=== PATIENT | female | born 1955 | race Caucasian/White ===

== ENCOUNTER 2018-04-15 23:33 | Emergency (ER) | payer BC ==
[2018-04-16] MEDS ORDERED: DIPH,PERTUS(ACELL)TETVAC-LF 0.5 ML VIAL IM ONE (00:11)
--- NOTE | 2018-04-16 00:48 | CT ---
EXAMINATION TYPE: CT brain wo con DATE OF EXAM: 04/16/2018 COMPARISON: None HISTORY: fall;evaluate for trauma headache CT DLP: 1044.4 mGycm Automated exposure control for dose reduction was used. FINDINGS: Ventricles have normal size. There is no mass effect nor midline shift. There is no sign of intracran ial hemorrhage. There is mild patchy white matter hypodensity. The calvarium is intact. There is mild mucosal thickening in the ethmoid air cells. IMPRESSION: MINIMAL CHRONIC SMALL VESSEL ISCHEMIA OR DEMYELINATING DISEASE. MILD ATROPHY. NO ACUTE INTRACRANIAL A BNORMALITY.
--- NOTE | 2018-04-16 01:01 | ED ---
Wound/Laceration HPI - General Chief Complaint: Wound/Laceration Stated Complaint: fall,head lac Time Seen by Provider: 04/16/18 00:01 Source: patient Mode of arrival: ambulatory Limitations: no limitations - History of Present Illness Initial Comments: 62-year-old female patient presents to the emergency department today for evaluation of laceration to the left posterior scalp. Patient states approximately 2 hours ago she was out on the deck smoking when she slipped and fell backwards striking her head on the deck. She denies any loss of consciousness with the injury. She denies any neck or back pain. She denies any other injuries. Patient states that she was having difficulty getting the bleeding to stop after repeatedly applying pressure for the last 2 hours or she presented here for further evaluation. She denies any use of anticoagulant or antiplatelet medications. She denies any current headache, dizziness, weakness , blurred vision, double vision, nausea, or vomiting. States that she did have 5 beers earlier in the day with last drink being at 4 PM. Patient denies any chest pain, shortness of breath, abdominal pain, or difficulties with bowel movements or urination. - Related Data Home Medications Medication Instructions Recorded Confirmed Ibuprofen 200 mg PO DAILY PRN 04/15/18 04/15/18 Rosuvastatin Calcium [Crestor] 2.5 mg PO DAILY 04/15/18 04/15/18 Allergies Allergy/AdvReac Type Severity Reaction Status Date / Time No Known Allergies Allergy Verified 04/15/18 23:46 Review of Systems ROS Statement: Those systems with pertinent positive or pertinent negative responses have been documented in the HPI. ROS Other: All systems not noted in ROS Statement are negative. Past Medical History Past Medical History: Hyperlipidemia History of Any Multi-Drug Resistant Organisms: None Reported Additional Past Surgical History / Comment(s): mastectomy Past Psychological History: No Psychological Hx Reported Smoking Status: Current every day smoker Past Alcohol Use History: Occasional Past Drug Use History: None Reported General Exam Limitations: no limitations General appearance: alert, in no apparent distress, other (This is a well- developed, well-nourished adult female patient in no acute distress. Vital signs upon presentation are temperature 97.9F, pulse 78, respirations 18, blood pressure 143/78, pulse ox 97% on room air.) Head exam: Present: other (There is a 3 cm laceration to the left occipital scalp, mild surrounding swelling. No bony step-off or deformity noted to palpation around the site. There is bleeding noted at the left lateral aspect.) Eye exam: Present: normal appearance, PERRL, EOMI. Absent: scleral icterus, conjunctival injection, nystagmus, periorbital swelling ENT exam: Present: normal exam, normal oropharynx, mucous membranes moist, TM's normal bilaterally Neck exam: Present: normal inspection, full ROM, other (Nontender, no step-off, no deformity to firm midline palpation of the posterior cervical spine. Full range of motion without pain or limitation.). Absent: tenderness, meningismus, lymphadenopathy Respiratory exam: Present: normal lung sounds bilaterally. Absent: respiratory distress, wheezes, rales, rhonchi, stridor Cardiovascular Exam: Present: regular rate, normal rhythm, normal heart sounds. Absent: systolic murmur, diastolic murmur, rubs, gallop, clicks Back exam: Present: normal inspection, other (Nontender, no step-off, no deformity to firm midline palpation of the thoracic and lumbar vertebrae. Full range of motion without pain or limitation.). Absent: vertebral tenderness Neurological exam: Present: alert, oriented X3, CN II-XII intact Psychiatric exam: Present: normal affect, normal mood Skin exam: Present: warm, dry, intact, normal color. Absent: rash Course Vital Signs 04/15/18 04/16/18 23:40 01:13 Temperature 97.9 F 97.3 F L Pulse Rate 78 88 Respiratory 18 16 Rate Blood Pressure 143/78 138/76 O2 Sat by Pulse 97 97 Oximetry Medical Decision Making - Medical Decision Making 62-year-old female patient presented to the emergency department today for evaluation of laceration to the left occipital scalp. Physical examination did reveal a 3 cm laceration with bleeding at the left lateral aspect to the left occipital scalp. The right lateral aspect of the laceration is superficial and exhibited no bleeding at this time. Patient is neurologically intact with no focal deficits. Computed tomography scan of the brain showed no acute intracranial abnormalities. Laceration injury. Using kofi. Patient was updated on her tetanus vaccine. She is discharged with instruction regarding signs or symptoms of worsening head injury and wound care. She is instructed to return in 7 days for staple removal. She is instructed to follow-up with her primary care physician for recheck in 1-2 days. Return parameters discussed in detail. She verbalizes understanding and agrees with this plan. - Radiology Data Radiology results: report reviewed, image reviewed CT brain without contrast was obtained. Report was reviewed in its entirety. Impression by Dr. Phipps shows minimal chronic small vessel ischemia or demyelinating disease. Mild atrophy. No acute intracranial abnormality. Disposition Clinical Impression: Head injury, Scalp laceration Disposition: HOME SELF-CARE Condition: Good Instructions: Care For Your Stitches (ED), Laceration (ED), Head Injury (ED) Additional Instructions: Keep wound clean and dry. Return for staple removal in 7 days. Follow up with your primary care physician for recheck in 1-2 days. Return immediately for any new, worsening, or concerning symptoms. Is patient prescribed a controlled substance at d/c from ED?: No Referrals: Alessandro Costello MD [Primary Care Provider] - 1-2 days Time of Disposition: 01:00
[2018-04-16 01:15] VITALS: BP 138/76; PULSE 88; RESP 16; TEMP 97.3
== END 2018-04-16 01:15 | disposition home or self-care (01) ==
LOC: EC 23:33
DX: S01.01XA Laceration without foreign body of scalp, initial encounter (principal); G31.9 Degenerative disease of nervous system, unspecified; E78.5 Hyperlipidemia, unspecified; F17.200 Nicotine dependence, unspecified, uncomplicated; Z79.899 Other long term (current) drug therapy; Z23 Encounter for immunization; W01.198A Fall on same level from slipping, tripping and stumbling with subsequent striking against other object, initial encounter; Y93.89 Activity, other specified; Y92.008 Other place in unspecified non-institutional (private) residence as the place of occurrence of the external cause
CPT/HCPCS: 12002; 70450; 90471; 90715; 99283

== ENCOUNTER → 2018-05-23 | Outpatient (CLI) | payer BC ==
--- NOTE | 2018-05-23 09:34 | CTL ---
EXAMINATION TYPE: CT Low Dose Lung DATE OF EXAM ORDERED: 05/23/2018 HISTORY: Z 87.891. Lung cancer screening CT DLP: [address] CTDI: 3.42 mGy Automated exposure control for dose reduction was used. SCREENING VISIT: 1 COMPARISON: None TECHNIQUE: Low dose computed tomography scan was performed through the chest at 1 mm thick sections a nd reconstructed images in the coronal plane at [address] DIAGNOSTIC QUALITY: Satisfactory FINDINGS: LUNG NODULES: None. LUNGS: COPD: Severity: Moderate Fibrosis: Severity: None Lymph nodes: Nonenlarged Other findings: Postop changes in the right axilla. RIGHT PLEURAL SPACE: Effusion: None Calcification: None Thickening: Apical pleural thickening noted Pneumothorax: Not present LEFT PLEURAL SPACE: Effusion: None Calcification: None Thickening: Apical pleural thickening present. Pneumothorax: Not present HEART: There is an ascending aortic aneurysm measuring approximately 5.1 cm. Proximal descending aor ta measures 3 cm. Heart Size: Normal Coronary calcification: Not seen Pericardial effusion: Not present OTHER FINDINGS: Upper abdomen: Unremarkable Bony thorax: Within normal limits, thoracic spondylosis is present. Supraclavicular region: Within normal limits Other: Otherwise unremarkable IMPRESSION: Ascending aortic aneurysm. Recommend vascular surgery consult, Nichole notified telephoni kindra at the time of interpretation at exam in the referring clinician's office. FOLLOW UP CT CHEST RECOMMENDATION: [address] LUNG RAD: 1, negative for pulmonary nodules
== END | disposition home or self-care (01) ==
LOC: RADCTMAIN 08:01
PROVIDERS: ATTEND Family Medicine
DX: Z12.2 Encounter for screening for malignant neoplasm of respiratory organs (principal); I71.2 Thoracic aortic aneurysm, without rupture; F17.210 Nicotine dependence, cigarettes, uncomplicated

== ENCOUNTER → 2019-12-13 | Outpatient (CLI) | payer BC ==
--- NOTE | 2019-12-13 15:04 | CT ---
EXAMINATION TYPE: CT angio chest DATE OF EXAM: 12/13/2019 COMPARISON: CT 05/23/2018 HISTORY: Thoracic aortic aneurysm CT DLP: 375 mGycm Automated exposure control for dose reduction was used. CONTRAST: CTA scan of the thorax is performed with IV Contrast, patient injected with 100 mL of Isovue 300, pul monary embolism protocol. MIP images are created and reviewed. 3D reconstructed images are created on an independent workstation and reviewed. FINDINGS: LUNGS: The lungs are grossly clear, there is no concerning parenchymal mass or nodule identified. The re is moderate extensive emphysematous change There is no pleural effusion or pneumothorax seen. Th e tracheobronchial tree is patent. AORTA: Ascending aorta measures approximately 5.2 centimeters. Proximal descending aorta measures ap proximately 3.1 cm, at the level of the aortic hiatus the aorta measures approximately 2.7 cm MEDIASTINUM: There is satisfactory enhancement of the pulmonary artery and its branches, there is no CT evidence for pulmonary embolism. There are no greater than 1 cm hilar or mediastinal lymph nodes. No pericardial effusion is seen. OTHER: Surgical clips are present in the right axillary region. IMPRESSION: ASCENDING AORTIC ANEURYSM, EMPHYSEMA
--- NOTE | 2019-12-14 12:39 | ECHOF ---
Referral Reason:I71.4 Abdominal aortic aneurysm, without rupture, MEASUREMENTS -------- HEIGHT: 177.8 cm WEIGHT: 81.6 kg BP: IVSd: 1.3 cm (0.6 - 1.1) LVIDd: 3.7 cm (3.9 - 5.3) LVPWd: 1.1 cm (0.6 - 1.1) IVSs: 1.7 cm LVIDs: 2.2 cm LVPWs: 1.7 cm LAESV Index (A-L): 13.40 ml/m Ao Diam: 2.7 cm (2.0 - 3.7) AV Cusp: 1.6 cm (1.5 - 2.6) MV EXCURSION: 10.378 mm (> 18.000) MV EF SLOPE: 64 mm/s (70 - 150) EPSS: 0.7 cm MV E Henri: 0.48 m/s MV DecT: 127 ms MV A Henri: 0.91 m/s MV E/A Ratio: 0.53 RAP: 5.00 mmHg RVSP: 39.84 mmHg FINDINGS -------- Sinus rhythm. This was a technically difficult study with suboptimal apical views. The left ventricular size is normal. There is mild concentric left ventricular hypertrophy. Overa ll left ventricular systolic function is normal with, an EF between 55 - 60 %. The diastolic fillin g pattern is normal for the age of the patient {E/E'}. The RV was not well visualized. Normal LA size by volume 22+/-6 ml/m2. The right atrium was not well visualized. 5.0mg of Lumason was utilized for enhancement of images Interatrial and interventricular septum intact. The aortic valve is trileaflet and appears structurally normal. There is no evidence of aortic regu rgitation. There is no evidence of aortic stenosis. No mitral regurgitation. Mild tricuspid regurgitation present. There is mild pulmonary hypertension. The right ventricular systolic pressure, as measured by Doppler, is 39.84mmHg. There is no pulmonic regurgitation present. The ascending aorta is dilated measuring up to 3.9 cm. Normal inferior vena cava with normal inspiratory collapse consistent with estimated right atrial pre ssure of 5 mmHg. There is no pericardial effusion. CONCLUSIONS -------- 1. Sinus rhythm. 2. This was a technically difficult study with suboptimal apical views. 3. The left ventricular size is normal. 4. There is mild concentric left ventricular hypertrophy. 5. Overall left ventricular systolic function is normal with, an EF between 55 - 60 %. 6. The diastolic filling pattern is normal for the age of the patient {E/E'} 7. The RV was not well visualized. 8. Normal LA size by volume 22+/-6 ml/m2. 9. The right atrium was not well visualized. 10. 5.0mg of Lumason was utilized for enhancement of images 11. Interatrial and interventricular septum intact. 12. The aortic valve is trileaflet and appears structurally normal. 13. There is no evidence of aortic regurgitation. 14. There is no evidence of aortic stenosis. 15. No mitral regurgitation. 16. Mild tricuspid regurgitation present. 17. There is mild pulmonary hypertension. 18. The right ventricular systolic pressure, as measured by Doppler, is 39.84mmHg. 19. There is no pulmonic regurgitation present. 20. The ascending aorta is dilated measuring up to 3.9 cm 21. Normal inferior vena cava with normal inspiratory collapse consistent with estimated right atrial pressure of 5 mmHg. 22. There is no pericardial effusion. HOUSEHOLD APPLIANCE INSTALLER: Kaia Barajas RDCS
== END | disposition home or self-care (01) ==
LOC: RADCTMAIN 13:48
PROVIDERS: ATTEND Surgery
DX: I07.1 Rheumatic tricuspid insufficiency (principal); I27.20 Pulmonary hypertension, unspecified; I35.8 Other nonrheumatic aortic valve disorders; I71.2 Thoracic aortic aneurysm, without rupture; J43.9 Emphysema, unspecified
CPT/HCPCS: 93306; 71275; Q9950; Q9967

== ENCOUNTER → 2020-12-11 | Outpatient (CLI) | payer BC ==
--- NOTE | 2020-12-13 15:11 | MM ---
Reason for exam: screening (asymptomatic). Last mammogram was performed 9 months ago. History: Patient is postmenopausal. Family history of breast cancer in paternal aunt. Benign excisional biopsy of the left breast. Excisional biopsy of the right breast. Mastectomy of the right breast. Took hormonal contraceptives for 10 years. Physical Findings: A clinical breast exam by your physician is recommended on an annual basis and results should be correlated with mammographic findings. MG 3D Scr Hermelindo Unilateral W/Cad Bilateral CC and MLO view(s) were taken. Prior study comparison: March 07, 2020, mammogram. November 30, 2018, mammogram. February 28, 2018, mammogram. There are scattered fibroglandular densities. There is chronic nodularity in the left breast. No significant changes when compared with prior studies. ASSESSMENT: Benign, BI-RAD 2 RECOMMENDATION: Routine screening mammogram of the left breast in 1 year.
== END | disposition home or self-care (01) ==
LOC: RADMAMWWP 11:06
PROVIDERS: ATTEND Family Medicine
DX: Z12.31 Encounter for screening mammogram for malignant neoplasm of breast (principal); Z78.0 Asymptomatic menopausal state; Z79.3 Long term (current) use of hormonal contraceptives; Z90.11 Acquired absence of right breast and nipple
CPT/HCPCS: 77067

== ENCOUNTER → 2021-01-03 | Outpatient (CLI) | payer BC ==
--- NOTE | 2021-01-03 12:29 | CT ---
CT CHEST FOR PULMONARY EMBOLISM. EXAMINATION TYPE: CT angio chest DATE OF EXAM: 01/03/2021 INDICATION: Follow up Aneurysm. Back pain. CT DLP: 460 mGycm, Automated exposure control for dose reduction was used. CONTRAST: Patient injected with 100 mL of Isovue 370. COMPARISON: 12/13/2019 TECHNIQUE: CT of the chest is performed on a spiral scan at 2 mm thick sections. Study is performed with intravenous contrast timed for evaluation of the aorta. This will limit additional portions of the evaluation. 3-D MIP images reconstructed by the technologist are reviewed on the computer in the coronal and sagittal planes. FINDINGS: No persistent filling defects are evident to suggest an acute pulmonary embolism. No mediastinal or hilar adenopathy enlarged by CT criteria is evident. The ascending aorta diameter at the level of the main pulmonary artery is 5.4 cm. The main pulmonary artery diameter at the bifur cation is 2.2 cm. Aorta: The aorta at the aortic root is 3.5 cm. Ascending thoracic aorta at the main pulmonary artery is 5.4 cm. The aorta at the aortic arch has a transverse dimension of 2.5 cm. The aorta at the diaphr agm measures 2.4 cm. No dissection is evident. Lung windows are clear. Some emphysematous changes present.[address] section through the upper abdomen are unremarkable. IMPRESSIONS: 1. Ascending thoracic aortic aneurysm measuring 5.4 cm, previously 5.2 cm.
== END | disposition home or self-care (01) ==
LOC: RADCTMAIN 11:03
PROVIDERS: ATTEND Surgery
DX: I71.2 Thoracic aortic aneurysm, without rupture (principal)
CPT/HCPCS: 71275; Q9967

== ENCOUNTER → 2021-02-20 | Outpatient (CLI) | payer BC ==
[2021-02-20 12:59] LABS: HGB 16.2 gm/dL (11.4-16.0); MCH 30.7 pg (25.0-35.0); MCHC 33.8 g/dL (31.0-37.0); MCV 90.8 fL (80.0-100.0); Mean Platelet Volume 8.3; Platelet Count 214 k/uL (150-450); RBC 5.28 m/uL (3.80-5.40); RDW 12.8 % (11.5-15.5); WBC 7.8 k/uL (3.8-10.6)
[2021-02-20 13:03] LABS: African American GFR (CKD) >90 (>60 ml/min/1.73 sqM); Anion Gap 11 mmol/L; Blood Urea Nitrogen 11 mg/dL (7-17); Carbon Dioxide 27 mmol/L (22-30); Chloride 103 mmol/L (98-107); Non-African American GFR(CKD) 90 (>60 ml/min/1.73 sqM); Potassium 4.2 mmol/L (3.5-5.1); Sodium 141 mmol/L (137-145)
== END | disposition home or self-care (01) ==
LOC: LABPAT 11:56
PROVIDERS: ATTEND Internal Medicine Interventional Cardiology
DX: Z01.812 Encounter for preprocedural laboratory examination (principal); I71.4 Abdominal aortic aneurysm, without rupture
CPT/HCPCS: 36415; 80051; 82565; 84520; 85027

== ENCOUNTER → 2021-02-25 | Day surgery (SDC) | payer BC ==
[2021-02-20 15:45] VITALS: BMI 26.5
[~2021-02-25] MED LIST: ALPRAZolam 0.25 MG TAB PO PRN; ALPRAZolam 0.5 MG TAB PO PRN; ASPIRIN 325 MG TAB PO ONE; ATORVASTATIN 80 MG TAB PO ONE; IOPAMIDOL-370 125ML BTL INJ ONE; LIDOCAINE 1% INJ 10MG/ML (20 ML MDV) SQ ONE; MIDAZOLAM 2 MG/2 ML VIAL IV ONE; NITROGLYCERIN SL TABS 0.4 MG TAB SUBLINGUAL PRN; RX INFO: IV CONTRAST WAS GIVEN 1 EACH MISC MISCELLANE PRN; SODIUM CHLORIDE 0.9% 1,000 ML IV SCH; SODIUM CHLORIDE 0.9% 1,000 ML in EMPTY BAG 1 BAG IV ONE; fentaNYL (PF) 50 MCG/ML 2 ML AMP IV ONE
[2021-02-25 08:19] VITALS: RESP 18; TEMP 98.4
[2021-02-25] MEDS: VERAPAMIL SYRINGE (5 MG/10 ML) INTRAARTER ONE ×2 (09:22→09:30)
--- NOTE | 2021-02-25 11:49 | CC ---
CARDIAC CATHETERIZATION REPORT DATE OF SERVICE: 02/25/2021 PERFORMING PHYSICIAN: Jim Hernandez M.D. PROCEDURE PERFORMED: 1. Selective right and left coronary angiogram. 2. Left heart catheterization. INDICATION: This is a pleasant 65-year-old female patient who was diagnosed recently with thoracic aortic aneurysm and she is in the process of having surgery by Dr. Leger. The heart catheterization is to rule out severe CAD. APPROACH: Left radial artery. COMPLICATIONS: None. LEVEL OF SEDATION: Moderate, with sedation length of 13 minutes. PROCEDURE DESCRIPTION: After obtaining informed consent, the patient was brought to the cardiac manager lab. The left radial artery was cannulated using micropuncture technique. The micropuncture wire passed easily. Then I placed a 6-Tongan sheath after than I gave the patient 2 mg of Verapamil IA and 6000 units of heparin IV. Selective left and right coronary angiogram was performed using JL4 and JR4 catheters. Left heart catheterization was not performed. The procedure was completed without any complication. SELECTIVE CORONARY ANGIOGRAM: 1. The right coronary artery is a large-caliber vessel and appeared to be a dominant vessel. The RCA has mild disease only. Distally it bifurcates into PDA and PLV branches; both appeared to be angiographically normal. 2. The left main. The left main is angiographically normal. It bifurcates into left circumflex and left anterior descending artery. 3. The circumflex is a large-caliber vessel. It is a nondominant vessel and appeared to be angiographically normal. It gives rise to 3 obtuse marginal branches. They all appeared to be angiographically normal. 4. The LAD. The proximal LAD appeared to be angiographically normal. It gives rise to a large diagonal branch that seems to be angiographically normal. The mid and distal LAD appeared to be angiographically normal. CONCLUSION: Mild nonobstructive coronary artery disease. POSTPROCEDURE MANAGEMENT: Medical treatment and followup with the patient. MMODL / IJN: [id number] /
--- NOTE | 2021-02-25 11:51 | LTR ---
February 25, 2021 To: Dr James Costello Regarding: Nuris Bradford (57) Dear Dr. Costello, Ms. Nuris Bradford underwent today heart catheterization that revealed mild nonobstructive coronary artery disease. I want to thank you for allowing me to participate in this patient's care. Please do not hesitate to call with any questions or concerns. Sincerely, Jim Hernandez M.D. FLORECITA / MARISELA: [id number] /
[2021-02-25 14:11] VITALS: BP 164/74; PULSE 72
== END ==
LOC: CATHCVL 07:46
PROVIDERS: ATTEND Internal Medicine Interventional Cardiology
DX: I71.2 Thoracic aortic aneurysm, without rupture (principal); I25.10 Atherosclerotic heart disease of native coronary artery without angina pectoris; Z20.822 Contact with and (suspected) exposure to COVID-19; I10 Essential (primary) hypertension; E78.5 Hyperlipidemia, unspecified; Z82.49 Family history of ischemic heart disease and other diseases of the circulatory system; F17.210 Nicotine dependence, cigarettes, uncomplicated; Z79.899 Other long term (current) drug therapy
CPT/HCPCS: 93454; 87635; C1894; J2250; J2001; J3010; J1644; Q9967

== ENCOUNTER → 2021-03-11 | Outpatient (CLI) | payer BC ==
--- NOTE | 2021-03-11 10:43 | US ---
EXAMINATION TYPE: US carotid duplex BILAT DATE OF EXAM: 03/11/2021 COMPARISON: None CLINICAL HISTORY: 65-year-old female Ascending Aortic Aneurysm I71.2. Pre testing for repair of Ascen ding thoracic aortic aneurysm; Prior smoker x 30 years. TECHNIQUE: Carotid Doppler ultrasound examination. Indirect Doppler criteria was utilized. FINDINGS: EXAM MEASUREMENTS: RIGHT: Peak Systolic Velocity (PSV) cm/sec ----- Right CCA: 46.1 ----- Right ICA: 72.2 ----- Right ECA: 213.5 ICA/CCA ratio: 1.6 RIGHT: End Diastole cm/sec ----- Right CCA: 11.1 ----- Right ICA: 26.0 ----- Right ECA: 51.8 LEFT: Peak Systolic Velocity (PSV) cm/sec ----- Left CCA: 40.3 ----- Left ICA: 92.8 ----- Left ECA: 48.5 ICA/CCA ratio: 2.3 LEFT: End Diastole cm/sec ----- Left CCA: 9.5 ----- Left ICA: 30.6 ----- Left ECA: 11.0 VERTEBRALS (direction of flow): Right Vertebral: Antegrade Left Vertebral: Antegrade Rhythm: Arrhythmia Museum Registrar notes: Mild to moderate mixed plaque noted at bilateral carotid bifurcation with abnormal ly elevated PSV right ECA. Measurements suggest atherosclerotic narrowing proximal right external carotid artery. IMPRESSION: No hemodynamically significant internal carotid artery stenosis on either side. Criteria for Assigning % of Stenosis / Diameter reduction (Estimation based on the indirect measurements of the internal carotid artery velocities (ICA PSV). 1. Normal (no stenosis)=ICA PSV < 125 cm/s: ratio < 2.0: ICA EDV<40 cm/s. 2. Less than 50% stenosis=ICA PSV < 125 cm/s: ratio < 2.0: ICA EDV<40 cm/s. 3. 50 to 69% stenosis=ICA PSV of 125 to 230 cm/s: ration 2.0 ? 4.0: ICA EDV 40-100 cm/s. 4. Greater than 70% stenosis to near occlusion= ICA PSV > 230 cm/s: ratio > 4.0: ICA EDV > 100 cm/s. 5. Near occlusion= ICA PSV velocities may be low or undetectable: variable ratio and ICA EDV. 6. Total occlusion=unable to detect flow.
[2021-03-11 11:23] LABS: HCT 44.6 % (34.0-46.0); HGB 15.2 gm/dL (11.4-16.0); MCH 29.8 pg (25.0-35.0); MCHC 34.1 g/dL (31.0-37.0); MCV 87.4 fL (80.0-100.0); Mean Platelet Volume 8.2; Platelet Count 245 k/uL (150-450); RBC 5.11 m/uL (3.80-5.40); RDW 13.2 % (11.5-15.5); WBC 7.7 k/uL (3.8-10.6)
[2021-03-11 11:35] LABS: Albumin 4.7 g/dL (3.5-5.0); Magnesium 2.1 mg/dL (1.6-2.3); Potassium 4.7 mmol/L (3.5-5.1); Total Bilirubin 0.8 mg/dL (0.2-1.3); Total Protein 7.6 g/dL (6.3-8.2)
[2021-03-11 11:45] LABS: Appearance,Urine Clear (Clear); Bilirubin,Urine Negative (Negative); Blood,Urine Negative (Negative); Color,Urine Yellow; Glucose,Urine (UA) Negative (Negative); Ketones,Urine Negative (Negative); Leukocyte Esterase,Urine Negative (Negative); Nitrite,Urine Negative (Negative); Protein,Urine Negative (Negative); Specific Gravity,Urine 1.015 (1.001-1.035); Urobilinogen,Urine <2.0 mg/dL (<2.0)
[2021-03-11 12:17] LABS: INR 0.9 (<1.2); Partial Thromboplastin Time 23.4 sec (22.0-30.0); Prothrombin Time 9.7 sec (9.0-12.0)
[2021-03-11 17:55] LABS: Hemoglobin A1C 6.2 % (4.0-6.0)
[2021-03-12 02:13] LABS: Hepatitis A Antibody IgM Nonreactive (Nonreactive); Hepatitis B Core IgM Nonreactive (Nonreactive); Hepatitis C IgG Antibody Nonreactive (Nonreactive)
[2021-03-12 02:49] LABS: Hepatitis B Surface Antigen ConfNotVal
--- NOTE | 2021-03-12 09:20 | P.ARTDOP ---
Arterial Doppler LOWER EXTREMITY ARTERIAL DOPPLER: DATE OF SERVICE: 03/11/2021 Reason for study: Preop CABG. Doppler waveforms: Multiphasic throughout bilaterally. Pulse volume recording: []. Pressure gradients: None. Ankle-brachial indices: greater than 1. Toe brachial indices: 0.7 on the right, 0.88 on the left Impression: Normal study.
--- NOTE | 2021-03-12 09:28 | P.VSCSTY ---
Greater Saphenous Vein Mapping This is bilateral lower extremity greater saphenous vein mapping. Date of service: 03/11/2021 Vein quality and ultrasound appearance: We see no intraluminal thrombus or obvious wall changes. Vein size groin right : 6.5 x 6.2 groin left: 5.7 x 7 High thigh right: 4.1 x 4.0 high thigh left: 4.0 x 3.9 Mid thigh right: 4.2 x 3.8 mid thigh left: 4 x 4 Above-knee right: 4.2 x 3.6 above- knee left: 4.6 x 4.1 Below knee right: 4.8 x 3.9 below-knee left: 4.3 x 4.1 Mid calf right: 4.1 x 3.2 mid calf left: 4.2 x 3.5 Ankle right: 4 x 3 ankle left: 3.3 x 3.1 Impression: Usable bilateral greater saphenous vein. Watch for branching above and below the knee on the left and above the knee on the right..
--- NOTE | 2021-03-12 11:09 | ECHOF ---
Referral Reason:Ascending Aortic Aneurysm I71.2 MEASUREMENTS -------- HEIGHT: 172.7 cm WEIGHT: 77.1 kg BP: RVIDd: 2.9 cm (< 3.3) IVSd: 1.2 cm (0.6 - 1.1) LVIDd: 3.5 cm (3.9 - 5.3) LVPWd: 1.5 cm (0.6 - 1.1) IVSs: 1.9 cm LVIDs: 2.0 cm LVPWs: 1.7 cm Ao Diam: 3.3 cm (2.0 - 3.7) AV Cusp: 1.9 cm (1.5 - 2.6) LA Diam: 2.6 cm (2.7 - 3.8) MV EXCURSION: 8.072 mm (> 18.000) MV EF SLOPE: 31 mm/s (70 - 150) EPSS: 0.7 cm MV E Henri: 0.36 m/s MV DecT: 273 ms MV A Henri: 0.80 m/s MV E/A Ratio: 0.45 RAP: 5.00 mmHg RVSP: 30.50 mmHg FINDINGS -------- This was a technically difficult study with suboptimal views. The left ventricular size is normal. There is mild concentric left ventricular hypertrophy. Overa ll left ventricular systolic function is normal with, an EF between 55 - 60 %. The right ventricle is normal in size. The left atrial size is normal. The right atrial size is normal. 5.0mg of Lumason was utilized for enhancement of images The aortic valve is trileaflet and appears structurally normal. There is no evidence of aortic regu rgitation. The mitral valve is normal. There is trace mitral regurgitation. The tricuspid valve appears structurally normal. Trace tricuspid regurgitation present. Right jamee tricular systolic pressure is normal at < 35 mmHg. There is no pulmonic regurgitation present. The ascending aorta is dilated measuring up to 5.0 cm. Normal inferior vena cava with normal inspiratory collapse consistent with estimated right atrial pre ssure of 5 mmHg. There is no pericardial effusion. CONCLUSIONS -------- 1. The left ventricular size is normal. 2. There is mild concentric left ventricular hypertrophy. 3. Overall left ventricular systolic function is normal with, an EF between 55 - 60 %. 4. There is no evidence of aortic regurgitation. 5. There is trace mitral regurgitation. 6. Trace tricuspid regurgitation present. 7. The ascending aorta is dilated measuring up to 5.0 cm. 8. There is no pericardial effusion. DIRECTOR COMMUNITY ORGANIZATION: Graciela Nunn RDCS
[2021-03-13 02:07] LABS: Chol/HDL Ratio 4.2 Ratio; HDL Cholesterol 39.8 mg/dL (40.00-60.00); LDL Cholesterol,Calculated 86.4 mg/dL (0.0-131.0); VLDL Calculation 40.8 mg/dL (5.00-40.00)
== END | disposition home or self-care (01) ==
LOC: RADUSWWP 08:50
PROVIDERS: ATTEND Surgery
DX: Z01.818 Encounter for other preprocedural examination (principal); I71.2 Thoracic aortic aneurysm, without rupture
CPT/HCPCS: 93306; 80061; 80053; 80074; 84443; 83735; 85027; 85610; 85730; 81003; 87070; 87086; 83036; 93970; 93922; 93880; 93005; 36415; U0003; C9803; Q9950

== ENCOUNTER 2021-03-17 05:41 | Inpatient (IN) | payer BC ==
[~2021-03-17 05:41] MED LIST changes: -ALPRAZolam 0.25 MG TAB PO PRN; -ALPRAZolam 0.5 MG TAB PO PRN; -ATORVASTATIN 80 MG TAB PO ONE; -IOPAMIDOL-370 125ML BTL INJ ONE; -LIDOCAINE 1% INJ 10MG/ML (20 ML MDV) SQ ONE; -MIDAZOLAM 2 MG/2 ML VIAL IV ONE; -NITROGLYCERIN SL TABS 0.4 MG TAB SUBLINGUAL PRN; -RX INFO: IV CONTRAST WAS GIVEN 1 EACH MISC MISCELLANE PRN; -SODIUM CHLORIDE 0.9% 1,000 ML IV SCH; -SODIUM CHLORIDE 0.9% 1,000 ML in EMPTY BAG 1 BAG IV ONE; -fentaNYL (PF) 50 MCG/ML 2 ML AMP IV ONE
[2021-03-17] MEDS ORDERED: NITROGLYCERIN SL TABS 0.4 MG TAB SUBLINGUAL ONE (06:00)
[2021-03-17] MEDS ORDERED: NITROGLYCERIN-D5W PMX 25 MG/250 ML BTL IV ONE (06:00)
[2021-03-17] MEDS ORDERED: PROTAMINE SULFATE 250 MG in EMPTY BAG 1 BAG IV ONE (06:00)
[2021-03-17] MEDS ORDERED: MUPIROCIN 2% OINT 22 GM TUBE NASAL ONE (06:00)
[2021-03-17] MEDS ORDERED: ALBUMIN HUMAN 5% 500 ML IVPB ONE (06:00)
[2021-03-17] MEDS ORDERED: ELECTROLYTE-A SOLUTION 1,000 ML with POTASSIUM CHLORIDE 40 MEQ, MAGNESIUM SULFATE 16 ME... IV ONE ×5 (06:00)
[2021-03-17] MEDS ORDERED: PHENYLEPHRINE 40 MG in SODIUM CHLORIDE 0.9% 250 ML IV ONE (06:00)
[2021-03-17] MEDS ORDERED: MAGNESIUM SULFATE MG 500 MG/ML IV ONE (06:00)
[2021-03-17] MEDS ORDERED: SODIUM CHLORIDE 0.9% 1,000 ML IV ONE (06:00)
[2021-03-17] MEDS ORDERED: ELECTROLYTE-A SOLUTION 1,000 ML with POTASSIUM CHLORIDE 100 MEQ, MAGNESIUM SULFATE 16 M... IV ONE ×5 (06:00)
[2021-03-17] MEDS ORDERED: LACTATED RINGERS 1,000 ML IV ONE ×2 (06:00→06:21)
[2021-03-17] MEDS ORDERED: HEPARIN SODIUM 1,000 UN/ML (10ML VL) IV ONE (06:00)
[2021-03-17] MEDS ORDERED: MANNITOL 25% 12.5 GM/50 ML VIAL IV ONE (06:00)
[2021-03-17] MEDS ORDERED: TRANEXAMIC ACID 2,000 MG in SODIUM CHLORIDE 0.9% 80 ML IV ONE (06:00)
[2021-03-17] MEDS ORDERED: ATORVASTATIN 10 MG TAB PO ONE (06:00)
[2021-03-17] MEDS ORDERED: propofoL 1,000 MG/100 ML VIAL IV ONE (06:00)
[2021-03-17] MEDS ORDERED: CLEVIDIPINE BUTYRATE 25 MG in EMPTY BAG 1 BAG IV ONE (06:00)
[2021-03-17] MEDS ORDERED: PROTAMINE SULFATE 10 MG/ML 25 ML VIAL IV ONE ×2 (06:00→07:33)
[2021-03-17] MEDS ORDERED: SODIUM BICARB 8.4% 50 ML SYR (1 MEQ/ML) IV ONE (06:00)
[2021-03-17] MEDS ORDERED: CALCIUM CHLORIDE 100 MG/ML 10 ML SYRINGE IV ONE (06:00)
[2021-03-17] MEDS ORDERED: PHENYLEPHRINE 10 MG/ML VIAL IV ONE (06:00)
[2021-03-17] MEDS ORDERED: INSULIN REGULAR 100 UNIT in SODIUM CHLORIDE 0.9% 100 ML IV ONE (06:00)
[2021-03-17] MEDS ORDERED: CHLORHEXIDINE GLUCONATE 15 ML CUP MUCOUS MEM ONE (06:00)
[2021-03-17] MEDS ORDERED: NITROGLYCERIN-D5W PMX 50 MG in DEXTROSE/WATER 1 250ML.BAG IV ONE (06:00)
[2021-03-17] MEDS ORDERED: ALBUMIN HUMAN 25% 50 ML IV ONE (06:00)
[2021-03-17] MEDS ORDERED: METOPROLOL TARTRATE 12.5 MG TAB PO ONE (06:00)
[2021-03-17] MEDS ORDERED: NOREPINEPHRINE 4 MG in SODIUM CHLORIDE 0.9% 250 ML IV ONE (06:00)
[2021-03-17] MEDS ORDERED: LIDOCAINE 1% (10MG/ML) FOR IV START INTRADERMA PRN (06:03)
[2021-03-17] MEDS ORDERED: LACTATED RINGERS 1,000 ML IV SCH (06:03)
[2021-03-17 06:24] LABS: Glucose,Whole Blood 119 mg/dL (75-99)
[2021-03-17] MEDS ORDERED: ceFAZolin 1,000 MG in SODIUM CHLORIDE 0.9% IRRIGATIO 1,000 ML IRRIGATION ONE (07:00)
[2021-03-17] MEDS ORDERED: PAPAVERINE 360 MG in SODIUM CHLORIDE 0.9% 90 ML IV ONE (07:00)
[2021-03-17] MEDS ORDERED: HEPARIN SODIUM,PORCINE 5,000 UNIT in SODIUM CHLORIDE 0.9% 500 ML 500 ML IV ONE (07:00)
[2021-03-17] MEDS ORDERED: fentaNYL (PF) 50 MCG/ML 50 ML VIAL ONE (07:33)
[2021-03-17] MEDS ORDERED: TRANEXAMIC ACID 1,000 MG/10 ML VIAL ONE (07:33)
[2021-03-17] MEDS ORDERED: SODIUM CHLORIDE 0.9% 250 ML BAG ONE (07:33)
[2021-03-17] MEDS ORDERED: ALBUMIN HUMAN 5% (25gm) 500 ML VIAL IVPB ONE (07:33)
[2021-03-17] MEDS ORDERED: ELECTROLYTE-R (PH 7.4) 1,000 ML IV.SOLN IV ONE (07:33)
[2021-03-17] MEDS ORDERED: ceFAZolin 1,000 MG VIAL ONE (07:33)
[2021-03-17] MEDS ORDERED: NITROGLYCERIN-D5W PMX 50 MG/250 ML BOTTLE IV ONE (07:33)
[2021-03-17] MEDS ORDERED: MIDAZOLAM 2 MG/2 ML VIAL ONE (07:33)
[2021-03-17] MEDS ORDERED: PROPOFOL 10 MG/ML 20 ML VIAL IV ONE (07:33)
[2021-03-17] MEDS ORDERED: SODIUM CHLORIDE 0.9% IRRIG 1,000 ML BTL IRRIGATION ONE (07:33)
[2021-03-17] MEDS ORDERED: SODIUM CHLORIDE 0.9% 100 ML BAG ONE (07:33)
[2021-03-17] MEDS ORDERED: VECURONIUM 10 MG VIAL IV ONE (07:33)
[2021-03-17] MEDS ORDERED: MAGNESIUM SULFATE 4 MEQ/ML 10ML VIAL ONE (07:33)
[2021-03-17] MEDS ORDERED: LIDOCAINE 2% SYG (PF) 100 MG/5 ML ONE (07:33)
--- NOTE | 2021-03-17 07:41 | P.ANPRN ---
Procedure Note - Anesthesia - Invasive Line Right Arterial Line Time Out Performed: Yes Date of Procedure: 03/17/21 Time of Procedure: 07:10 Location of Patient: PreOp Preparation: Sterile Prep, Sterile Dressing Arterial Line Location: Radial Ultrasound Used: No Needle Guage: 20 Narrative: Right radial arterial line placed by SRNA Right Central Line Time Out Performed: Yes Date of Procedure: 03/17/21 Time of Procedure: 07:15 Location of Patient: PreOp Preparation: Sterile Prep, Sterile Dressing Ultrasound Used: Yes Purpose - Visualization and Identification of Vasculature: Yes Needle Guage: 18 Image Stored and Saved: Yes Narrative: Central line placement per sterile protocol utilized. Right Indiahoma Baron Time Out Performed: Yes Date of Procedure: 03/17/21 Time of Procedure: 07:30 Location of Patient: PreOp Preparation: Sterile Prep, Sterile Dressing Ultrasound Used: No Narrative: R IJ Indiahoma floated to pulmonary waveform. Secured to 43 cm
[2021-03-17 08:18] LABS: ABG Base Excess -0.5 mmol/L; ABG Glucose Whole Blood 132 mg/dL (75-99); ABG HCO3 24 mmol/L (21-25); ABG Hematocrit 43 % (34.0-46.0); ABG Ionized Calcium 4.7 mg/dL (4.5-5.3); ABG Lactic Acid Whole Blood 1.4 mmol/L (0.5-1.6); ABG Oxygen Saturation 99.5 % (94-97); ABG PCO2 37 mmHg (35-45); ABG PH 7.42 (7.35-7.45); ABG PO2 152 mmHg (83-108); ABG Potassium Whole Blood 4.2 mmol/L (3.4-4.5); ABG Sodium Whole Blood 141 mmol/L (135-146); ABG TCO2 25 mmol/L (19-24)
[2021-03-17 09:23] LABS: ABG Base Excess -1.7 mmol/L; ABG Glucose Whole Blood 123 mg/dL (75-99); ABG HCO3 23 mmol/L (21-25); ABG Hematocrit 41 % (34.0-46.0); ABG Ionized Calcium 4.6 mg/dL (4.5-5.3); ABG Lactic Acid Whole Blood 1.6 mmol/L (0.5-1.6); ABG Oxygen Saturation 99.6 % (94-97); ABG PCO2 39 mmHg (35-45); ABG PH 7.39 (7.35-7.45); ABG PO2 186 mmHg (83-108); ABG Potassium Whole Blood 4.2 mmol/L (3.4-4.5); ABG Sodium Whole Blood 140 mmol/L (135-146); ABG TCO2 24 mmol/L (19-24)
[2021-03-17 10:00] LABS: ABG Base Excess -4.2 mmol/L; ABG Glucose Whole Blood 117 mg/dL (75-99); ABG HCO3 21 mmol/L (21-25); ABG Hematocrit 31 % (34.0-46.0); ABG Ionized Calcium 3.8 mg/dL (4.5-5.3); ABG Lactic Acid Whole Blood 1.4 mmol/L (0.5-1.6); ABG PCO2 38 mmHg (35-45); ABG PH 7.35 (7.35-7.45); ABG Potassium Whole Blood 4.5 mmol/L (3.4-4.5); ABG Sodium Whole Blood 135 mmol/L (135-146); ABG TCO2 22 mmol/L (19-24)
[2021-03-17 10:34] LABS: ABG Base Excess 0.5 mmol/L; ABG Glucose Whole Blood 122 mg/dL (75-99); ABG HCO3 25 mmol/L (21-25); ABG Hematocrit 31 % (34.0-46.0); ABG Ionized Calcium 4.1 mg/dL (4.5-5.3); ABG Lactic Acid Whole Blood 1.3 mmol/L (0.5-1.6); ABG PCO2 39 mmHg (35-45); ABG PH 7.42 (7.35-7.45); ABG PO2 310 mmHg (83-108); ABG Potassium Whole Blood 4.9 mmol/L (3.4-4.5); ABG Sodium Whole Blood 139 mmol/L (135-146); ABG TCO2 26 mmol/L (19-24)
[2021-03-17 11:06] LABS: ABG Base Excess -0.5 mmol/L; ABG Glucose Whole Blood 133 mg/dL (75-99); ABG HCO3 25 mmol/L (21-25); ABG Hematocrit 27 % (34.0-46.0); ABG Ionized Calcium 3.8 mg/dL (4.5-5.3); ABG Lactic Acid Whole Blood 1.1 mmol/L (0.5-1.6); ABG PCO2 41 mmHg (35-45); ABG PH 7.39 (7.35-7.45); ABG PO2 222 mmHg (83-108); ABG Sodium Whole Blood 139 mmol/L (135-146); ABG TCO2 26 mmol/L (19-24)
[2021-03-17 11:39] LABS: ABG Base Excess -0.8 mmol/L; ABG Glucose Whole Blood 137 mg/dL (75-99); ABG HCO3 24 mmol/L (21-25); ABG Hematocrit 27 % (34.0-46.0); ABG Ionized Calcium 3.9 mg/dL (4.5-5.3); ABG Lactic Acid Whole Blood 1.6 mmol/L (0.5-1.6); ABG PCO2 38 mmHg (35-45); ABG PH 7.41 (7.35-7.45); ABG Potassium Whole Blood 5.6 mmol/L (3.4-4.5); ABG Sodium Whole Blood 139 mmol/L (135-146); ABG TCO2 25 mmol/L (19-24)
[2021-03-17 12:11] LABS: ABG Base Excess -3.6 mmol/L; ABG Glucose Whole Blood 150 mg/dL (75-99); ABG HCO3 24 mmol/L (21-25); ABG Ionized Calcium 3.7 mg/dL (4.5-5.3); ABG Oxygen Saturation 99.9 % (94-97); ABG PCO2 62 mmHg (35-45); ABG PH 7.21 (7.35-7.45); ABG PO2 254 mmHg (83-108); ABG Potassium Whole Blood 5.1 mmol/L (3.4-4.5); ABG Sodium Whole Blood 139 mmol/L (135-146); ABG TCO2 26 mmol/L (19-24)
--- NOTE | 2021-03-17 13:13 | P.ANPRN ---
Procedure Note - Anesthesia - JAIRO Intraop Pre Bypass JAIRO Intraop - Anesthesia Indication: Ascending aortic aneurysm Date of Procedure: 03/17/21 Pre-operative Diagnosis: Aortic aneurysm Post-operative Diagnosis: Same Surgeon: Nicol Leger Left Ventricle: EF 55% Ejection Fraction: Normal Regional Wall Motion Abnormalities: None Left Ventricle Hypertrophy: No R. Ventricle Function: Hypokinesis Mild Anatomy: Trileaflet Aortic Stenosis: None Aortic Regurgitation: None Mitral Stenosis: None Mitral Regurgitation: Trace Tricuspid Stenosis: None Tricuspid Regurgitation: Mild Pulmonic Stenosis: None Pulmonic Regurgitation: None R. Atrial Dilation: No R. Atrial PFO: Yes (3 mm) L. Atrial Dilation: No Aorta: Aortic aneurysm beyond STJ to 5.3 cm Aortic Dissection: No Aortic Calcification: None Plural Effusion: None - JAIRO Intraop Post Bypass JAIRO Intraop Post Bypass Procedure Performed: Ascending aortic replacement, left atrial appendage ligation, PFO closure Left Ventricle: EF 65% Ejection Fraction: Normal Regional Wall Motion Abnormalities: None R. Ventricle Function: Hypokinesis Mild Aortic Valve: Unchanged Mitral Valve: Mild MR Tricuspid: Moderate TR Pulmonic: Unchanged Aortic Dissection: No (No flow in LA appendage. Closed PFO w/ insignificant flow)
[2021-03-17 13:17] LABS: ABG PO2 >420 mmHg (83-108)
[2021-03-17 13:18] LABS: ABG PO2 >420 mmHg (83-108)
[2021-03-17 13:19] LABS: ABG Hematocrit 23 % (34.0-46.0); ABG Lactic Acid Whole Blood 2.2 mmol/L (0.5-1.6)
[2021-03-17 13:37] LABS: ABG Base Excess -4.3 mmol/L; ABG Glucose Whole Blood 150 mg/dL (75-99); ABG HCO3 22 mmol/L (21-25); ABG Hematocrit 36 % (34.0-46.0); ABG Ionized Calcium 3.9 mg/dL (4.5-5.3); ABG Oxygen Saturation 99.2 % (94-97); ABG PCO2 42 mmHg (35-45); ABG PH 7.32 (7.35-7.45); ABG PO2 148 mmHg (83-108); ABG Potassium Whole Blood 4.4 mmol/L (3.4-4.5); ABG Sodium Whole Blood 140 mmol/L (135-146); ABG TCO2 23 mmol/L (19-24)
[2021-03-17 13:42] LABS: ABG Lactic Acid Whole Blood 2.1 mmol/L (0.5-1.6)
--- NOTE | 2021-03-17 13:50 | XR ---
EXAMINATION TYPE: XR abdomen 1V DATE OF EXAM: 03/17/2021 Comparison: 02/19/2021 Clinical History: 65-year-old female missing sponge, foreign body Findings: The patient is intubated. Additional device present within the esophagus. Bilateral chest tubes are p resent. Right IJ [place]-Baron catheter tip in the proximal right main pulmonary artery. Mediastinal drai ns. No appreciable pneumothorax. Surgical clips in the right axilla. Curvilinear external instruments are present along the base of the neck on both sides. Some patchy retrocardiac and left basilar opac ity. Post-CABG changes. IMPRESSION: Postsurgical changes. Correlate as to the curvilinear densities which project across the base of the neck on both sides. No retained sponge is clearly identified.
[2021-03-17] MEDS ORDERED: Magnesium Replacement Protocol 1 EACH MISC MISCELLANE PRN (14:16)
[2021-03-17] MEDS ORDERED: Potassium Replacement Protocol 1 EACH MISC MISCELLANE PRN (14:16)
[2021-03-17] MEDS ORDERED: AMIODARONE 450 MG in DEXTROSE 5% IN WATER 250 ML IV PRN ×2 (14:16)
[2021-03-17] MEDS ORDERED: BENZOCAINE/MENTHOL LOZENG 1 EACH LOZENGE MUCOUS MEM PRN (14:16)
[2021-03-17] MEDS ORDERED: DEXTROSE 5% IN WATER 100 ML with AMIODARONE 150 MG IV PRN (14:16)
[2021-03-17] MEDS ORDERED: Phosphorus Replacement Protoco 1 EACH MISC MISCELLANE PRN (14:16)
[2021-03-17] MEDS ORDERED: CALCIUM GLUCONATE 2 GM in SODIUM CHLORIDE 0.9% 100 ML IVPB PRN (14:16)
[2021-03-17] MEDS ORDERED: AMIODARONE 360 MG in DEXTROSE 5% IN WATER 200 ML IV PRN ×2 (14:16)
[2021-03-17] MEDS ORDERED: METOCLOPRAMIDE 5 MG/ML 2 ML VIAL IVP PRN (14:16)
[2021-03-17] MEDS ORDERED: IPRATROPIUM-ALBUTEROL 3 ML NEB INHALATION PRN (14:16)
[2021-03-17 14:47] LABS: Glucose,Whole Blood 146 mg/dL (75-99)
[2021-03-17 15:00] LABS: ABG Base Excess -0.6 mmol/L; ABG HCO3 25 mmol/L (21-25); ABG Oxygen Saturation 98.9 % (94-97); ABG PCO2 47 mmHg (35-45); ABG PH 7.34 (7.35-7.45); ABG PO2 133 mmHg (83-108); ABG TCO2 27 mmol/L (19-24); Allen Test Performed? Yes
[2021-03-17 15:01] LABS: Ionized Calcium 4.4 mg/dL (4.5-5.3)
--- NOTE | 2021-03-17 15:02 | XR ---
EXAMINATION TYPE: XR chest 1V portable DATE OF EXAM: 03/17/2021 COMPARISON: Chest x-ray 02/19/2021 HISTORY: Postop cardiac surgery TECHNIQUE: Single frontal view of the chest is obtained. FINDINGS: Patient is post median sternotomy, left atrial appendage clip placement, endotracheal tube is overlying the tracheal air column. Right-sided central venous catheter is at this tip over the pu lmonary artery, there are mediastinal drains, epicardial pacing leads, right and left chest tubes. Ca rdiac mediastinal silhouette within normal limits accounting for rotation. Patchy basilar densities p resent within the lungs. There is no sizable pneumothorax. Surgical kofi are present in the right axilla. IMPRESSION: Satisfactory postoperative chest x-ray
[2021-03-17 15:08] LABS: Basophils % (A) 0 %; Eosinophils % (A) 0 %; HCT 31.5 % (34.0-46.0); INR 1.2 (<1.2); Lymphocytes % (A) 15 %; MCH 29.8 pg (25.0-35.0); MCHC 33.6 g/dL (31.0-37.0); MCV 88.8 fL (80.0-100.0); Mean Platelet Volume 8.8; Monocytes # (A) 0.3 k/uL (0-1.0); Monocytes % (A) 5 %; Neutrophils # (A) 5.4 k/uL (1.3-7.7); Neutrophils % (A) 79 %; Partial Thromboplastin Time 64.7 sec (22.0-30.0); Prothrombin Time 12.7 sec (9.0-12.0); RBC 3.55 m/uL (3.80-5.40); RDW 13.3 % (11.5-15.5); WBC 6.8 k/uL (3.8-10.6)
[2021-03-17 15:09] LABS: ABG HCO3 23 mmol/L (21-25); ABG Oxygen Saturation 98.1 % (94-97); ABG PCO2 40 mmHg (35-45); ABG PH 7.38 (7.35-7.45); ABG PO2 102 mmHg (83-108); ABG TCO2 25 mmol/L (19-24); Allen Test Performed? Yes
[2021-03-17] MEDS: CLEVIDIPINE BUTYRATE 25 MG in EMPTY BAG 1 BAG IV SCH ×2 (15:09→17:20)
[2021-03-17] MEDS: NOREPINEPHRINE 4 MG in SODIUM CHLORIDE 0.9% 250 ML IV SCH (15:09)
[2021-03-17 15:14] LABS: AST 71 U/L (14-36); African American GFR (CKD) >90 (>60 ml/min/1.73 sqM); Albumin 2.6 g/dL (3.5-5.0); Blood Urea Nitrogen 7 mg/dL (7-17); Carbon Dioxide 22 mmol/L (22-30); Chloride 109 mmol/L (98-107); Glucose 144 mg/dL (74-99); Non-African American GFR(CKD) >90 (>60 ml/min/1.73 sqM); Total Bilirubin 1.2 mg/dL (0.2-1.3); Total Protein 4.3 g/dL (6.3-8.2)
[2021-03-17 15:23] LABS: HGB 10.6 gm/dL (11.4-16.0)
[2021-03-17 15:33] LABS: ALT 20 U/L (4-34); Alkaline Phosphatase 20 U/L (38-126); Anion Gap 5 mmol/L; Calcium 6.7 mg/dL (8.4-10.2); Magnesium 2.4 mg/dL (1.6-2.3); Potassium 4.8 mmol/L (3.5-5.1); Sodium 138 mmol/L (137-145)
[2021-03-17] MEDS ORDERED: INSULIN REGULAR 100 UNIT in SODIUM CHLORIDE 0.9% 100 ML IV SCH (15:45)
[2021-03-17 15:56] LABS: Platelet Count 82 k/uL (150-450)
[2021-03-17] MEDS ORDERED: IPRATROPIUM-ALBUTEROL 3 ML NEB INHALATION SCH (16:00)
[2021-03-17 16:16] LABS: Glucose,Whole Blood 178 mg/dL (75-99)
[2021-03-17] MEDS ORDERED: DEXMEDETOMIDINE/0.9% NACL(PMX) 400 MCG in EMPTY BAG 1 BAG IV SCH (17:00)
[2021-03-17] MEDS: ACETAMINOPHEN IV (For NPO) 1,000 MG in EMPTY BAG 1 BAG IVPB SCH (17:02)
[2021-03-17] MEDS: SODIUM CHLORIDE 0.9% 1,000 ML IV SCH (17:20)
[2021-03-17 17:43] LABS: Glucose,Whole Blood 169 mg/dL (75-99)
[2021-03-17] MEDS: ALBUMIN HUMAN 5% 250 ML in EMPTY BAG 1 BAG IVPB PRN ×2 (17:47→17:48)
[2021-03-17 17:50] LABS: Basophils % (A) 0 %; Eosinophils % (A) 0 %; HCT 33.7 % (34.0-46.0); Lymphocytes # (A) 1.2 k/uL (1.0-4.8); Lymphocytes % (A) 11 %; MCH 29.5 pg (25.0-35.0); MCHC 32.7 g/dL (31.0-37.0); MCV 90.5 fL (80.0-100.0); Monocytes # (A) 0.4 k/uL (0-1.0); Monocytes % (A) 4 %; Neutrophils # (A) 8.8 k/uL (1.3-7.7); Neutrophils % (A) 84 %; Platelet Count 102 k/uL (150-450); RBC 3.73 m/uL (3.80-5.40); WBC 10.5 k/uL (3.8-10.6)
[2021-03-17 17:59] LABS: ABG Base Excess -4.2 mmol/L; ABG HCO3 21 mmol/L (21-25); ABG Oxygen Saturation 96.6 % (94-97); ABG PCO2 38 mmHg (35-45); ABG PH 7.36 (7.35-7.45); ABG PO2 81 mmHg (83-108); ABG TCO2 22 mmol/L (19-24); Allen Test Performed? Yes
--- NOTE | 2021-03-17 18:08 | P.CNPUL ---
History of Present Illness Consult date: 03/17/21 Requesting physician: Nicol Leger Reason for consult: other (Status post supra coronary ascending aortic replacement) Chief complaint: Status post supra coronary ascending aortic replacement, History of present illness: This is a 65-year-old female with ascending aortic aneurysm, patient underwent repair of the aneurysm today, her last cardiac catheterization on 02/26 showed no evidence of significant coronary artery disease. Patient had her surgery done earlier today electively by , patient was evaluated in the ICU while on mechanical ventilation. She is presently sedated, on Precedex, but arousable, and she is on assist control rate of 16, tidal volume is 400, FiO2 50% and PEEP of 5. ABG showed a pO2 of 102 pCO2 of 40 pH of 7.38. Chest x-ray is basically unremarkable. Hence I would likely proceed to weaning as per protocol, patient would likely be weaned and extubated shortly. Patient is not requiring any pressors, she is only on insulin drip at 3.5 units per hour, she is also on Precedex which is being tapered down and to be discontinued. Review of Systems ROS unobtainable: due to endotracheal tube Past Medical History Past Medical History: Cancer, Hyperlipidemia, Hypertension, Osteoarthritis (OA) Additional Past Medical History / Comment(s): aortic aneurysm since 2018, getting larger, recent CT scan, emphysema, hx. breast cancer 20 yrs. ago, paro xysmal vertigo History of Any Multi-Drug Resistant Organisms: None Reported Past Surgical History: Breast Surgery, Heart Catheterization Additional Past Surgical History / Comment(s): right radical mastectomy 1990, right oophorectomy, cyst removed from left ovary, D & C Past Anesthesia/Blood Transfusion Reactions: No Reported Reaction Smoking Status: Former smoker - Past Family History Father Family Medical History: Coronary Artery Disease (CAD) Medications and Allergies Home Medications Medication Instructions Recorded Confirmed Type Rosuvastatin Calcium [Crestor] 2.5 mg PO HS 04/15/18 03/17/21 History Ascorbic Acid [Vitamin C] 1,000 mg PO DAILY 02/20/21 03/17/21 History Ipratropium [place] 0.06%Nasal 2 spray EA NOSTRIL BID PRN 02/20/21 03/17/21 History [Atrovent Nasal 0.06%] Metoprolol Succinate (ER) [Toprol 25 mg PO HS 02/20/21 03/17/21 History XL] Zinc 25 mg PO Q2D 02/20/21 03/17/21 History Albuterol Inhaler [Ventolin Hfa 2 puff INHALATION BID 03/11/21 03/17/21 History Inhaler] Cholecalciferol [Vitamin D3 (25 25 mcg PO DAILY 03/11/21 03/17/21 History Mcg = 1000 Iu)] Fish Oil/Dha/Epa [Fish Oil 1,200 1 each PO DAILY 03/11/21 03/17/21 History mg Fish Oil] Glucos Sul 2Kcl/MSM/Chond/C/Mn 1 each PO DAILY 03/11/21 03/17/21 History [Glucosamine Chondroitin Cap] [place]-3 Fatty Acids [[place]-3] 600 mg PO DAILY 03/11/21 03/17/21 History Allergies Allergy/AdvReac Type Severity Reaction Status Date / Time codeine AdvReac nausea, Verified 03/17/21 06:22 felt "out of it" Physical Exam Vitals: Vital Signs Temp Pulse Pulse Pulse Resp BP BP 03/17/21 17:30 73 13 03/17/21 17:15 79 21 03/17/21 17:00 80 14 113/68 03/17/21 16:45 70 23 03/17/21 16:30 69 23 03/17/21 16:15 70 23 03/17/21 16:00 97.7 F 69 23 100/58 03/17/21 15:45 69 23 03/17/21 15:30 69 23 03/17/21 15:15 80 20 03/17/21 15:00 70 17 94/52 03/17/21 14:45 64 20 03/17/21 14:30 80 28 H 03/17/21 14:29 03/17/21 06:19 94 03/17/21 06:16 97.4 F L 88 16 180/81 BP Pulse Ox 03/17/21 17:30 98 03/17/21 17:15 87 L 03/17/21 17:00 82 L 03/17/21 16:45 99 03/17/21 16:30 100 03/17/21 16:15 98 03/17/21 16:00 99 03/17/21 15:45 100 03/17/21 15:30 100 03/17/21 15:15 100 03/17/21 15:00 100 03/17/21 14:45 99 03/17/21 14:30 100 03/17/21 14:29 100 03/17/21 06:19 179/93 03/17/21 06:16 97 Intake and Output 03/17/21 03/17/21 03/17/21 06:59 14:59 22:59 Intake Total 100 141 207.187 Output Total 4705 345 Balance 100 -4564 -137.813 Intake: IV 100 141 178 CO/CI 30 60 Pressure 9 18 Sodium Chloride 0.9% 1, 50 100 000 ml @ 50 mls/hr IV . Q20H RASHID Rx#:[id number] Intake, IV Titration 29.187 Amount Clevidipine Butyrate 25 2.767 mg In Empty Bag 1 bag @ 1 MG/HR 2 mls/hr IV .Q24H RASHID Rx#:[id number] Dexmedetomidine/0.9% NaCl 5.468 (Pmx) 400 mcg In Empty Bag 1 bag @ 0.2 MCG/KG/HR 4.05 mls/hr IV .Q24H RASHID Rx#:[id number] Insulin Regular 100 unit 2.525 In Sodium Chloride 0.9% 100 ml @ Per Protocol IV .Q0M RASHID Rx#:[id number] propofoL 1,000 mg In 18.427 Empty Bag 1 bag @ Titrate IV .Q0M RASHID Rx#: [id number] Output: Chest Tube Drainage 150 200 Left Pleural 120 150 Mediastinal x2 0 20 Right Pleural 30 30 Urine 1055 145 Estimated Blood Loss 3500 Other: Voiding Method Indwelling Catheter Weight 81 kg ABP, PAP, CO, CI - Last 8 Hours Arterial Blood Pressure 110/49 Arterial Blood Pressure 135/60 Arterial Blood Pressure 123/49 Arterial Blood Pressure 131/58 Arterial Blood Pressure 128/59 Arterial Blood Pressure 123/59 Arterial Blood Pressure 130/63 Arterial Blood Pressure 127/62 Arterial Blood Pressure 135/68 Arterial Blood Pressure 117/59 Arterial Blood Pressure 118/57 Arterial Blood Pressure 192/107 Arterial Blood Pressure 106/50 Pulmonary Artery Pressure 31/4 Pulmonary Artery Pressure 36/14 Pulmonary Artery Pressure 45/19 Pulmonary Artery Pressure 27/14 Pulmonary Artery Pressure 29/15 Pulmonary Artery Pressure 27/14 Pulmonary Artery Pressure 28/14 Pulmonary Artery Pressure 27/14 Pulmonary Artery Pressure 29/16 Pulmonary Artery Pressure 25/15 Pulmonary Artery Pressure 26/14 Pulmonary Artery Pressure 24/11 Cardiac Output 3.7 Cardiac Output 3.5 Cardiac Output 3.3 Cardiac Output 2.5 Cardiac Output 3.3 Cardiac Index 1.9 Cardiac Index 1.8 Cardiac Index 1.7 Cardiac Index 1.3 Cardiac Index 1.7 Physical Exam revealed a 65-year-old female on mechanical ventilation, in no distress. Head: Atraumatic, normocephalic. HEENT:[Neck is supple.] [No neck masses.] [No thyromegaly.] [No JVD.] Chest: [Minimal fine crackles at the bases no rhonchi and no wheezes chest tubes were noted. Cardiac Exam: [Normal S1 and S2, no S3 gallop, no murmur.] Abdomen: [Soft, nontender, no megaly, no rebound, no guarding, normal bowel sounds.] Extremities: [No clubbing, no edema, no cyanosis.] Neurological Exam: Cannot assess, patient is sedated, but arousable and follows simple instructions. Musculoskeletal: No deformities noted limitation range of motion. Results - Laboratory Findings CBC and BMP: 03/17/21 17:40 03/17/21 14:40 ABG ABG pH 7.38 (7.35-7.45) 03/17/21 15:04 ABG pCO2 40 mmHg (35-45) 03/17/21 15:04 ABG pO2 102 mmHg (83-108) 03/17/21 15:04 ABG O2 Saturation 98.1 % (94-97) H 03/17/21 15:04 PT/INR, D-dimer PT 12.7 sec (9.0-12.0) H 03/17/21 14:40 INR 1.2 (<1.2) H 03/17/21 14:40 Abnormal lab findings: Abnormal Labs 03/11/21 03/17/21 03/17/21 10:30 06:21 07:30 RBC Hgb Hct Plt Count Neutrophils # PT INR APTT ABG pH 7.34 L ABG pCO2 47 H ABG pO2 133 H ABG Total CO2 27 H ABG O2 Saturation 98.9 H ABG Hematocrit ABG Potassium ABG Ionized Calcium ABG Glucose ABG Lactic Acid Hemoglobin Chloride Glucose POC Glucose (mg/dL) 119 H Calcium Ionized Calcium Ziggy Magnesium AST Alkaline Phosphatase Total Protein Albumin Arterial Blood Potassium Arterial Blood Glucose Crossmatch See Detail 03/17/21 03/17/21 03/17/21 08:22 09:27 10:04 RBC Hgb Hct Plt Count Neutrophils # PT INR APTT ABG pH ABG pCO2 ABG pO2 152 H 186 H >420 H ABG Total CO2 25 H ABG O2 Saturation 99.5 H 99.6 H 100.0 H ABG Hematocrit 31 L ABG Potassium ABG Ionized Calcium 3.8 L ABG Glucose 132 H 123 H 117 H ABG Lactic Acid Hemoglobin 10.1 L Chloride Glucose POC Glucose (mg/dL) Calcium Ionized Calcium Ziggy Magnesium AST Alkaline Phosphatase Total Protein Albumin Arterial Blood Potassium Arterial Blood Glucose 132 H 123 H 117 H Crossmatch 03/17/21 03/17/21 03/17/21 10:38 11:10 11:43 RBC Hgb Hct Plt Count Neutrophils # PT INR APTT ABG pH ABG pCO2 ABG pO2 310 H 222 H >420 H ABG Total CO2 26 H 26 H 25 H ABG O2 Saturation 100.0 H 100.0 H 100.0 H ABG Hematocrit 31 L 27 L 27 L ABG Potassium 4.9 H 5.0 H 5.6 H ABG Ionized Calcium 4.1 L 3.8 L 3.9 L ABG Glucose 122 H 133 H 137 H ABG Lactic Acid Hemoglobin 10.1 L 8.8 L 8.7 L Chloride Glucose POC Glucose (mg/dL) Calcium Ionized Calcium Ziggy Magnesium AST Alkaline Phosphatase Total Protein Albumin Arterial Blood Potassium 4.9 H 5.0 H 5.6 H Arterial Blood Glucose 122 H 133 H 137 H Crossmatch 03/17/21 03/17/21 03/17/21 12:15 13:41 14:40 RBC 3.55 L Hgb 10.6 L D Hct 31.5 L Plt Count 82 L D Neutrophils # PT INR APTT ABG pH 7.21 L 7.32 L ABG pCO2 62 H ABG pO2 254 H 148 H ABG Total CO2 26 H ABG O2 Saturation 99.9 H 99.2 H ABG Hematocrit 23 L ABG Potassium 5.1 H ABG Ionized Calcium 3.7 L 3.9 L ABG Glucose 150 H 150 H ABG Lactic Acid 2.2 H* 2.1 H Hemoglobin 7.5 L Chloride Glucose POC Glucose (mg/dL) Calcium Ionized Calcium Ziggy Magnesium AST Alkaline Phosphatase Total Protein Albumin Arterial Blood Potassium 5.1 H Arterial Blood Glucose 150 H 150 H Crossmatch 03/17/21 03/17/21 03/17/21 14:40 14:40 14:45 RBC Hgb Hct Plt Count Neutrophils # PT 12.7 H INR 1.2 H APTT 64.7 H ABG pH ABG pCO2 ABG pO2 ABG Total CO2 ABG O2 Saturation ABG Hematocrit ABG Potassium ABG Ionized Calcium ABG Glucose ABG Lactic Acid Hemoglobin Chloride 109 H Glucose 144 H POC Glucose (mg/dL) 146 H Calcium 6.7 L Ionized Calcium Ziggy 4.4 L Magnesium 2.4 H AST 71 H Alkaline Phosphatase 20 L Total Protein 4.3 L Albumin 2.6 L Arterial Blood Potassium Arterial Blood Glucose Crossmatch 03/17/21 03/17/21 03/17/21 15:04 16:05 17:40 RBC Hgb Hct Plt Count Neutrophils # PT INR APTT ABG pH ABG pCO2 ABG pO2 ABG Total CO2 25 H ABG O2 Saturation 98.1 H ABG Hematocrit ABG Potassium ABG Ionized Calcium ABG Glucose ABG Lactic Acid Hemoglobin Chloride Glucose POC Glucose (mg/dL) 178 H 169 H Calcium Ionized Calcium Ziggy Magnesium AST Alkaline Phosphatase Total Protein Albumin Arterial Blood Potassium Arterial Blood Glucose Crossmatch 03/17/21 17:40 RBC 3.73 L Hgb 11.0 L Hct 33.7 L Plt Count 102 L Neutrophils # 8.8 H PT INR APTT ABG pH ABG pCO2 ABG pO2 ABG Total CO2 ABG O2 Saturation ABG Hematocrit ABG Potassium ABG Ionized Calcium ABG Glucose ABG Lactic Acid Hemoglobin Chloride Glucose POC Glucose (mg/dL) Calcium Ionized Calcium Ziggy Magnesium AST Alkaline Phosphatase Total Protein Albumin Arterial Blood Potassium Arterial Blood Glucose Crossmatch - Diagnostic Findings Chest x-ray: image reviewed (As noted in HPI) Assessment and Plan Assessment: Impression: Status post ascending aortic aneurysm repair, postoperative day #0. History of hypertension. Dyslipidemia Ex-smoker Recommendation: Reviewed chest x-ray Reviewed ABGs Reviewed medications. And the drips. Will likely wean and extubate the patient to a nasal cannula in the next hour. We'll continue to follow Time with Patient: Greater than 30
[2021-03-17] MEDS: ONDANSETRON 4 MG/2 ML VIAL IVP PRN (18:52)
[2021-03-17 19:03] LABS: Glucose,Whole Blood 152 mg/dL (75-99)
[2021-03-17] MEDS: HEPARIN SODIUM,PORCINE/PF 5,000 UNIT/0.5 ML SYRINGE SQ SCH (19:05)
[2021-03-17 20:01] LABS: Glucose,Whole Blood 144 mg/dL (75-99)
[2021-03-17 20:50] LABS: Basophils % (A) 0 %; Eosinophils % (A) 0 %; Lymphocytes # (A) 0.8 k/uL (1.0-4.8); Lymphocytes % (A) 11 %; MCH 28.9 pg (25.0-35.0); MCHC 32.8 g/dL (31.0-37.0); MCV 88.1 fL (80.0-100.0); Mean Platelet Volume 9.5; Monocytes # (A) 0.3 k/uL (0-1.0); Monocytes % (A) 4 %; Neutrophils # (A) 6.3 k/uL (1.3-7.7); Neutrophils % (A) 84 %; RBC 3.18 m/uL (3.80-5.40); RDW 13.4 % (11.5-15.5); WBC 7.5 k/uL (3.8-10.6)
[2021-03-17 20:58] LABS: HGB 9.2 gm/dL (11.4-16.0)
[2021-03-17 20:58] LABS: Glucose,Whole Blood 137 mg/dL (75-99)
[2021-03-17 20:59] LABS: Platelet Count 76 k/uL (150-450)
[2021-03-17] MEDS: IPRATROPIUM-ALBUTEROL 3 ML NEB INHALATION SCH (21:33)
[2021-03-17 21:58] LABS: Glucose,Whole Blood 132 mg/dL (75-99)
[2021-03-17 23:12] LABS: Glucose,Whole Blood 136 mg/dL (75-99)
[2021-03-18 00:19] LABS: Glucose,Whole Blood 137 mg/dL (75-99)
[2021-03-18] MEDS: ACETAMINOPHEN IV (For NPO) 1,000 MG in EMPTY BAG 1 BAG IVPB SCH (00:19)
[2021-03-18] MEDS: HEPARIN SODIUM,PORCINE/PF 5,000 UNIT/0.5 ML SYRINGE SQ SCH ×3 (00:22→15:24)
[2021-03-18 01:06] LABS: Glucose,Whole Blood 137 mg/dL (75-99)
[2021-03-18] MEDS: ONDANSETRON 4 MG/2 ML VIAL IVP PRN (01:12)
[2021-03-18] MEDS ORDERED: HYDROcodone/APAP 5-325MG 1 EACH TAB PO PRN (01:39)
[2021-03-18] MEDS: CLEVIDIPINE BUTYRATE 25 MG in EMPTY BAG 1 BAG IV SCH (02:03)
[2021-03-18 02:12] LABS: Glucose,Whole Blood 128 mg/dL (75-99)
[2021-03-18 03:00] LABS: Glucose,Whole Blood 126 mg/dL (75-99)
[2021-03-18 04:11] LABS: Glucose,Whole Blood 119 mg/dL (75-99)
[2021-03-18 04:23] LABS: Basophils % (A) 0 %; Eosinophils % (A) 0 %; HCT 29.3 % (34.0-46.0); HGB 9.9 gm/dL (11.4-16.0); Lymphocytes # (A) 0.7 k/uL (1.0-4.8); Lymphocytes % (A) 7 %; MCH 30.3 pg (25.0-35.0); MCHC 33.8 g/dL (31.0-37.0); MCV 89.7 fL (80.0-100.0); Mean Platelet Volume 10.7; Monocytes # (A) 0.5 k/uL (0-1.0); Monocytes % (A) 5 %; Neutrophils # (A) 7.7 k/uL (1.3-7.7); Neutrophils % (A) 86 %; RBC 3.26 m/uL (3.80-5.40); RDW 13.1 % (11.5-15.5); WBC 8.9 k/uL (3.8-10.6)
[2021-03-18 04:24] LABS: Ionized Calcium 4.5 mg/dL (4.5-5.3)
[2021-03-18 04:26] LABS: Platelet Count 83 k/uL (150-450)
[2021-03-18 04:35] LABS: ALT 20 U/L (4-34); AST 62 U/L (14-36); African American GFR (CKD) >90 (>60 ml/min/1.73 sqM); Albumin 3.6 g/dL (3.5-5.0); Alkaline Phosphatase 30 U/L (38-126); Anion Gap 7 mmol/L; Blood Urea Nitrogen 6 mg/dL (7-17); Calcium 7.5 mg/dL (8.4-10.2); Carbon Dioxide 23 mmol/L (22-30); Chloride 106 mmol/L (98-107); Glucose 115 mg/dL (74-99); Non-African American GFR(CKD) >90 (>60 ml/min/1.73 sqM); Sodium 136 mmol/L (137-145); Total Bilirubin 1.1 mg/dL (0.2-1.3); Total Protein 5.2 g/dL (6.3-8.2)
[2021-03-18] MEDS ORDERED: Potassium Replacement Protocol 1 EACH MISC MISCELLANE PRN (04:59)
[2021-03-18 05:16] LABS: Glucose,Whole Blood 115 mg/dL (75-99)
[2021-03-18 06:02] LABS: Glucose,Whole Blood 122 mg/dL (75-99)
[2021-03-18] MEDS: HYDROcodone/APAP 5-325MG 1 EACH TAB PO PRN ×2 (06:20→20:22)
[2021-03-18] MEDS: POTASSIUM CHLORIDE ER 20 MEQ TAB.ER PO SCH ×2 (06:21→07:11)
--- NOTE | 2021-03-18 06:55 | XR ---
EXAMINATION TYPE: XR chest 1V portable DATE OF EXAM: 03/18/2021 CLINICAL HISTORY: Postopen cardiac surgery progress study. TECHNIQUE: Single AP portable upright view of the chest is obtained. COMPARISON: Chest x-ray from one day earlier FINDINGS: Overlying sternal wires along with left atrial appendage clip are redemonstrated. Stable r ight internal jugular [employer]-Baron catheter. Stable bibasilar chest tubes and 2 mediastinal drainage cat heters. Overlying pacer wires redemonstrated. Interval extubation with removal of endotracheal tube. Persistent patchy bibasilar opacity. Background low lung volumes. No pneumothorax seen bilaterally. C ardiac silhouette stable and mildly enlarged. Osseous structures are intact. IMPRESSION: Interval extubation. Mild cardiomegaly and low lung volumes with patchy bibasilar atelect asis and/or infiltrate redemonstrated. No pneumothorax identified with bilateral chest tubes in place .
[2021-03-18 07:07] LABS: Glucose,Whole Blood 114 mg/dL (75-99)
[2021-03-18 07:49] LABS: Glucose,Whole Blood 122 mg/dL (75-99)
[2021-03-18] MEDS: IPRATROPIUM-ALBUTEROL 3 ML NEB INHALATION SCH ×4 (08:07→19:58)
[2021-03-18] MEDS ORDERED: METOCLOPRAMIDE 5 MG/ML 2 ML VIAL IVP STA (08:14)
[2021-03-18] MEDS: CLOPIDOGREL 75 MG TAB PO SCH (08:52)
[2021-03-18] MEDS: ASCORBIC ACID 500 MG TAB PO SCH (08:52)
[2021-03-18] MEDS: CHOLECALCIFEROL 25 MCG (1000 IU) TABLET PO SCH (08:52)
[2021-03-18] MEDS: ATORVASTATIN 40 MG TAB PO SCH (08:54)
--- NOTE | 2021-03-18 08:54 | P.PN ---
Subjective Progress Note Date: 03/18/21 Principal diagnosis: Ascending aortic aneurysm. Previous medical history of hypertension, hyperlipidemia, previous tobacco dependence, mild COPD, ETOH use 2-7 drinks weekly, breast cancer status post radical right mastectomy, paroxysmal vertigo, and family history of premature coronary artery with father from [place] at 54 years old, vaccinated against Covid. POD #1 Supra coronary ascending aortic replacement with 32 mm gelweave graft, closure of PFO, exclusion of left atrial appendage with 35 mm Atriclup, introperative transesophageal echocardiogram Postoperative acute blood loss anemia and thrombocytopenia, expected after open heart surgery given hemodilution and cardiopulmonary bypass pump The patient was seen and examined this morning with Dr. Leger. She was sitting up in the recliner in no acute distress. Successfully extubated last night at 18:10. She does complain of post surgical chest pain mostly controlled with current medication regimen, denies shortness of breath. She remains in sinus rhythm, hemodynamically stable on a small dose of Cleveprex for hypertension. Right internal jugular Reserve/cordis, right radial arterial line, mediastinal/left /right pleural chest tubes remain. Urine output stable. Actively using incentive spirometry but only achieving 500 mL. Remains on 6 LPM high flow nasal cannula. Uneventful evening, no new concerns. Objective - Vital Signs Vital signs: Vital Signs Temp 97.7 F 03/17/21 16:00 Pulse 74 03/18/21 08:07 Resp 18 03/18/21 08:07 BP 109/48 03/18/21 07:00 Pulse Ox 97 03/18/21 07:00 Intake & Output 03/17/21 03/18/21 03/18/21 18:59 06:59 18:59 Intake Total 410.455 5617.677 97.787 Output Total 5285 1809 60 Balance -4778.813 185.677 37.787 Weight 88.5 kg Intake: IV 477 1158 89 ACETAMINOPHEN IV (For NPO 100 ) 1,000 mg In Empty Bag 1 bag @ 400 mls/hr IVPB Q6HR RASHID Rx#:[id number] CO/CI 130 350 30 Kefzol 50 Pressure Bag 45 108 9 Sodium Chloride 0.9% 1, 250 550 50 000 ml @ 20 mls/hr IV . Q24H RASHID Rx#:[id number] Intake, IV Titration 29.187 86.677 8.787 Amount Clevidipine Butyrate 25 2.767 39.001 mg In Empty Bag 1 bag @ 1 MG/HR 2 mls/hr IV .Q24H RASHID Rx#:[id number] Dexmedetomidine/0.9% NaCl 5.468 11.88 (Pmx) 400 mcg In Empty Bag 1 bag @ 0.2 MCG/KG/HR 4.05 mls/hr IV .Q24H RASHID Rx#:[id number] Insulin Regular 100 unit 2.525 35.796 8.787 In Sodium Chloride 0.9% 100 ml @ Per Protocol IV .Q0M RASHID Rx#:[id number] propofoL 1,000 mg In 18.427 Empty Bag 1 bag @ Titrate IV .Q0M RASHID Rx#: [id number] Oral 750 Output: Chest Tube Drainage 460 329 30 Left Pleural 300 79 0 Mediastinal x2 70 160 20 Right Pleural 90 90 10 Urine 1325 1480 30 Estimated Blood Loss 3500 Other: Voiding Method Indwelling Catheter Indwelling Catheter ABP, PAP, CO, CI - Last Documented Arterial Blood Pressure 139/48 Pulmonary Artery Pressure 21/9 Cardiac Output 4.5 Cardiac Index 2.3 - Exam CONSTITUTIONAL: Appears comfortable, cooperative, no acute distress RESPIRATORY: Lungs sounds diminished bilaterally. Respirations even, nonlabored. Currently on 6 L high flow nasal cannula with oxygen saturation 94%. Able to achieve 500 mL on incentive spirometry. Weak cough. CARDIOVASCULAR: S1, S2 present. Regular rate and rhythm, sinus rhythm on telemetry. Sternum stable. Palpable peripheral pulses bilaterally. No edema present. No calf pain or tenderness noted. Heart hugger in place with patient demonstrating appropriate use. Antiembolism stockings, SCDs present. GASTROINTESTINAL: Abdomen soft, nontender, nondistended. Hypoactive bowel sounds present 4 quadrants. Tolerating clear liquid diet. Positive belching, negative flatus GENITOURINARY: Palma present draining clear, yellow urine. Output overnight 75-215 mL per hour INTEGUMENTARY: Skin is warm and dry with evidence of good perfusion. Anterior chest incision well approximated and covered with dry intact dressing. NEUROLOGIC: Cranial nerves II through XII intact MUSKULOSKELETAL: Able to move all extremities, strength equal bilaterally, gait normal PSYCHIATRIC: Alert and oriented to person place and time, appropriate affect, intact judgment and insight INVASIVE LINES AND TUBES: Mediastinal/left/right pleural chest tubes present and connected to wall suction, no air leaks present. Mediastinal tube with 80 mL serosanguineous drainage overnight, 400 mL since surgery. Left pleural chest tube with 60 mL serosanguineous drainage overnight, 200 mL since surgery. Right pleural chest tube with 65 mL serosanguineous drainage overnight, 180 mL since surgery. A/V epicardial pacemaker wires present, grounded. Right internal jugular Reserve/Cordis, right radial arterial line present. Last CO/CI 4.5/2.3, PA 34/13, CVP 10. - Allied health notes Allied health notes reviewed: nursing - Labs CBC & Chem 7: 03/18/21 04:08 03/18/21 04:08 Labs: Abnormal Lab Results - Last 24 Hours (Table) 03/11/21 03/17/21 03/17/21 Range/Units 10:30 07:30 08:22 RBC (3.80-5.40) m/uL Hgb (11.4-16.0) gm/dL Hct (34.0-46.0) % Plt Count (150-450) k/uL Neutrophils # (1.3-7.7) k/uL Lymphocytes # (1.0-4.8) k/uL PT (9.0-12.0) sec INR (<1.2) APTT (22.0-30.0) sec ABG pH 7.34 L (7.35-7.45) ABG pCO2 47 H (35-45) mmHg ABG pO2 133 H 152 H (83-108) mmHg ABG Total CO2 27 H 25 H (19-24) mmol/L ABG O2 Saturation 98.9 H 99.5 H (94-97) % ABG Hematocrit (34.0-46.0) % ABG Potassium (3.4-4.5) mmol/L ABG Ionized Calcium (4.5-5.3) mg/dL ABG Glucose 132 H (75-99) mg/dL ABG Lactic Acid (0.5-1.6) mmol/L Hemoglobin (11.4-16.0) gm/dL Sodium (137-145) mmol/L Potassium (3.5-5.1) mmol/L Chloride (98-107) mmol/L BUN (7-17) mg/dL Creatinine (0.52-1.04) mg/dL Glucose (74-99) mg/dL POC Glucose (mg/dL) (75-99) mg/dL Calcium (8.4-10.2) mg/dL Ionized Calcium Ziggy (4.5-5.3) mg/dL Magnesium (1.6-2.3) mg/dL AST (14-36) U/L Alkaline Phosphatase (38-126) U/L Total Protein (6.3-8.2) g/dL Albumin (3.5-5.0) g/dL Arterial Blood Potassium (3.4-4.5) mmol/L Arterial Blood Glucose 132 H (75-99) mg/dL Crossmatch See Detail 03/17/21 03/17/21 03/17/21 Range/Units 09:27 10:04 10:38 RBC (3.80-5.40) m/uL Hgb (11.4-16.0) gm/dL Hct (34.0-46.0) % Plt Count (150-450) k/uL Neutrophils # (1.3-7.7) k/uL Lymphocytes # (1.0-4.8) k/uL PT (9.0-12.0) sec INR (<1.2) APTT (22.0-30.0) sec ABG pH (7.35-7.45) ABG pCO2 (35-45) mmHg ABG pO2 186 H >420 H 310 H (83-108) mmHg ABG Total CO2 26 H (19-24) mmol/L ABG O2 Saturation 99.6 H 100.0 H 100.0 H (94-97) % ABG Hematocrit 31 L 31 L (34.0-46.0) % ABG Potassium 4.9 H (3.4-4.5) mmol/L ABG Ionized Calcium 3.8 L 4.1 L (4.5-5.3) mg/dL ABG Glucose 123 H 117 H 122 H (75-99) mg/dL ABG Lactic Acid (0.5-1.6) mmol/L Hemoglobin 10.1 L 10.1 L (11.4-16.0) gm/dL Sodium (137-145) mmol/L Potassium (3.5-5.1) mmol/L Chloride (98-107) mmol/L BUN (7-17) mg/dL Creatinine (0.52-1.04) mg/dL Glucose (74-99) mg/dL POC Glucose (mg/dL) (75-99) mg/dL Calcium (8.4-10.2) mg/dL Ionized Calcium Ziggy (4.5-5.3) mg/dL Magnesium (1.6-2.3) mg/dL AST (14-36) U/L Alkaline Phosphatase (38-126) U/L Total Protein (6.3-8.2) g/dL Albumin (3.5-5.0) g/dL Arterial Blood Potassium 4.9 H (3.4-4.5) mmol/L Arterial Blood Glucose 123 H 117 H 122 H (75-99) mg/dL Crossmatch 03/17/21 03/17/21 03/17/21 Range/Units 11:10 11:43 12:15 RBC (3.80-5.40) m/uL Hgb (11.4-16.0) gm/dL Hct (34.0-46.0) % Plt Count (150-450) k/uL Neutrophils # (1.3-7.7) k/uL Lymphocytes # (1.0-4.8) k/uL PT (9.0-12.0) sec INR (<1.2) APTT (22.0-30.0) sec ABG pH 7.21 L (7.35-7.45) ABG pCO2 62 H (35-45) mmHg ABG pO2 222 H >420 H 254 H (83-108) mmHg ABG Total CO2 26 H 25 H 26 H (19-24) mmol/L ABG O2 Saturation 100.0 H 100.0 H 99.9 H (94-97) % ABG Hematocrit 27 L 27 L 23 L (34.0-46.0) % ABG Potassium 5.0 H 5.6 H 5.1 H (3.4-4.5) mmol/L ABG Ionized Calcium 3.8 L 3.9 L 3.7 L (4.5-5.3) mg/dL ABG Glucose 133 H 137 H 150 H (75-99) mg/dL ABG Lactic Acid 2.2 H* (0.5-1.6) mmol/L Hemoglobin 8.8 L 8.7 L 7.5 L (11.4-16.0) gm/dL Sodium (137-145) mmol/L Potassium (3.5-5.1) mmol/L Chloride (98-107) mmol/L BUN (7-17) mg/dL Creatinine (0.52-1.04) mg/dL Glucose (74-99) mg/dL POC Glucose (mg/dL) (75-99) mg/dL Calcium (8.4-10.2) mg/dL Ionized Calcium Ziggy (4.5-5.3) mg/dL Magnesium (1.6-2.3) mg/dL AST (14-36) U/L Alkaline Phosphatase (38-126) U/L Total Protein (6.3-8.2) g/dL Albumin (3.5-5.0) g/dL Arterial Blood Potassium 5.0 H 5.6 H 5.1 H (3.4-4.5) mmol/L Arterial Blood Glucose 133 H 137 H 150 H (75-99) mg/dL Crossmatch 03/17/21 03/17/21 03/17/21 Range/Units 13:41 14:40 14:40 RBC 3.55 L (3.80-5.40) m/uL Hgb 10.6 L D (11.4-16.0) gm/dL Hct 31.5 L (34.0-46.0) % Plt Count 82 L D (150-450) k/uL Neutrophils # (1.3-7.7) k/uL Lymphocytes # (1.0-4.8) k/uL PT 12.7 H (9.0-12.0) sec INR 1.2 H (<1.2) APTT 64.7 H (22.0-30.0) sec ABG pH 7.32 L (7.35-7.45) ABG pCO2 (35-45) mmHg ABG pO2 148 H (83-108) mmHg ABG Total CO2 (19-24) mmol/L ABG O2 Saturation 99.2 H (94-97) % ABG Hematocrit (34.0-46.0) % ABG Potassium (3.4-4.5) mmol/L ABG Ionized Calcium 3.9 L (4.5-5.3) mg/dL ABG Glucose 150 H (75-99) mg/dL ABG Lactic Acid 2.1 H (0.5-1.6) mmol/L Hemoglobin (11.4-16.0) gm/dL Sodium (137-145) mmol/L Potassium (3.5-5.1) mmol/L Chloride (98-107) mmol/L BUN (7-17) mg/dL Creatinine (0.52-1.04) mg/dL Glucose (74-99) mg/dL POC Glucose (mg/dL) (75-99) mg/dL Calcium (8.4-10.2) mg/dL Ionized Calcium Ziggy (4.5-5.3) mg/dL Magnesium (1.6-2.3) mg/dL AST (14-36) U/L Alkaline Phosphatase (38-126) U/L Total Protein (6.3-8.2) g/dL Albumin (3.5-5.0) g/dL Arterial Blood Potassium (3.4-4.5) mmol/L Arterial Blood Glucose 150 H (75-99) mg/dL Crossmatch 03/17/21 03/17/21 03/17/21 Range/Units 14:40 14:45 15:04 RBC (3.80-5.40) m/uL Hgb (11.4-16.0) gm/dL Hct (34.0-46.0) % Plt Count (150-450) k/uL Neutrophils # (1.3-7.7) k/uL Lymphocytes # (1.0-4.8) k/uL PT (9.0-12.0) sec INR (<1.2) APTT (22.0-30.0) sec ABG pH (7.35-7.45) ABG pCO2 (35-45) mmHg ABG pO2 (83-108) mmHg ABG Total CO2 25 H (19-24) mmol/L ABG O2 Saturation 98.1 H (94-97) % ABG Hematocrit (34.0-46.0) % ABG Potassium (3.4-4.5) mmol/L ABG Ionized Calcium (4.5-5.3) mg/dL ABG Glucose (75-99) mg/dL ABG Lactic Acid (0.5-1.6) mmol/L Hemoglobin (11.4-16.0) gm/dL Sodium (137-145) mmol/L Potassium (3.5-5.1) mmol/L Chloride 109 H (98-107) mmol/L BUN (7-17) mg/dL Creatinine (0.52-1.04) mg/dL Glucose 144 H (74-99) mg/dL POC Glucose (mg/dL) 146 H (75-99) mg/dL Calcium 6.7 L (8.4-10.2) mg/dL Ionized Calcium Ziggy 4.4 L (4.5-5.3) mg/dL Magnesium 2.4 H (1.6-2.3) mg/dL AST 71 H (14-36) U/L Alkaline Phosphatase 20 L (38-126) U/L Total Protein 4.3 L (6.3-8.2) g/dL Albumin 2.6 L (3.5-5.0) g/dL Arterial Blood Potassium (3.4-4.5) mmol/L Arterial Blood Glucose (75-99) mg/dL Crossmatch 03/17/21 03/17/21 03/17/21 Range/Units 16:05 17:40 17:40 RBC 3.73 L (3.80-5.40) m/uL Hgb 11.0 L (11.4-16.0) gm/dL Hct 33.7 L (34.0-46.0) % Plt Count 102 L (150-450) k/uL Neutrophils # 8.8 H (1.3-7.7) k/uL Lymphocytes # (1.0-4.8) k/uL PT (9.0-12.0) sec INR (<1.2) APTT (22.0-30.0) sec ABG pH (7.35-7.45) ABG pCO2 (35-45) mmHg ABG pO2 (83-108) mmHg ABG Total CO2 (19-24) mmol/L ABG O2 Saturation (94-97) % ABG Hematocrit (34.0-46.0) % ABG Potassium (3.4-4.5) mmol/L ABG Ionized Calcium (4.5-5.3) mg/dL ABG Glucose (75-99) mg/dL ABG Lactic Acid (0.5-1.6) mmol/L Hemoglobin (11.4-16.0) gm/dL Sodium (137-145) mmol/L Potassium (3.5-5.1) mmol/L Chloride (98-107) mmol/L BUN (7-17) mg/dL Creatinine (0.52-1.04) mg/dL Glucose (74-99) mg/dL POC Glucose (mg/dL) 178 H 169 H (75-99) mg/dL Calcium (8.4-10.2) mg/dL Ionized Calcium Ziggy (4.5-5.3) mg/dL Magnesium (1.6-2.3) mg/dL AST (14-36) U/L Alkaline Phosphatase (38-126) U/L Total Protein (6.3-8.2) g/dL Albumin (3.5-5.0) g/dL Arterial Blood Potassium (3.4-4.5) mmol/L Arterial Blood Glucose (75-99) mg/dL Crossmatch 03/17/21 03/17/21 03/17/21 Range/Units 17:55 19:01 19:59 RBC (3.80-5.40) m/uL Hgb (11.4-16.0) gm/dL Hct (34.0-46.0) % Plt Count (150-450) k/uL Neutrophils # (1.3-7.7) k/uL Lymphocytes # (1.0-4.8) k/uL PT (9.0-12.0) sec INR (<1.2) APTT (22.0-30.0) sec ABG pH (7.35-7.45) ABG pCO2 (35-45) mmHg ABG pO2 81 L (83-108) mmHg ABG Total CO2 (19-24) mmol/L ABG O2 Saturation (94-97) % ABG Hematocrit (34.0-46.0) % ABG Potassium (3.4-4.5) mmol/L ABG Ionized Calcium (4.5-5.3) mg/dL ABG Glucose (75-99) mg/dL ABG Lactic Acid (0.5-1.6) mmol/L Hemoglobin (11.4-16.0) gm/dL Sodium (137-145) mmol/L Potassium (3.5-5.1) mmol/L Chloride (98-107) mmol/L BUN (7-17) mg/dL Creatinine (0.52-1.04) mg/dL Glucose (74-99) mg/dL POC Glucose (mg/dL) 152 H 144 H (75-99) mg/dL Calcium (8.4-10.2) mg/dL Ionized Calcium Ziggy (4.5-5.3) mg/dL Magnesium (1.6-2.3) mg/dL AST (14-36) U/L Alkaline Phosphatase (38-126) U/L Total Protein (6.3-8.2) g/dL Albumin (3.5-5.0) g/dL Arterial Blood Potassium (3.4-4.5) mmol/L Arterial Blood Glucose (75-99) mg/dL Crossmatch 03/17/21 03/17/21 03/17/21 Range/Units 20:00 20:57 21:57 RBC 3.18 L (3.80-5.40) m/uL Hgb 9.2 L D (11.4-16.0) gm/dL Hct 28.0 L (34.0-46.0) % Plt Count 76 L (150-450) k/uL Neutrophils # (1.3-7.7) k/uL Lymphocytes # 0.8 L (1.0-4.8) k/uL PT (9.0-12.0) sec INR (<1.2) APTT (22.0-30.0) sec ABG pH (7.35-7.45) ABG pCO2 (35-45) mmHg ABG pO2 (83-108) mmHg ABG Total CO2 (19-24) mmol/L ABG O2 Saturation (94-97) % ABG Hematocrit (34.0-46.0) % ABG Potassium (3.4-4.5) mmol/L ABG Ionized Calcium (4.5-5.3) mg/dL ABG Glucose (75-99) mg/dL ABG Lactic Acid (0.5-1.6) mmol/L Hemoglobin (11.4-16.0) gm/dL Sodium (137-145) mmol/L Potassium (3.5-5.1) mmol/L Chloride (98-107) mmol/L BUN (7-17) mg/dL Creatinine (0.52-1.04) mg/dL Glucose (74-99) mg/dL POC Glucose (mg/dL) 137 H 132 H (75-99) mg/dL Calcium (8.4-10.2) mg/dL Ionized Calcium Ziggy (4.5-5.3) mg/dL Magnesium (1.6-2.3) mg/dL AST (14-36) U/L Alkaline Phosphatase (38-126) U/L Total Protein (6.3-8.2) g/dL Albumin (3.5-5.0) g/dL Arterial Blood Potassium (3.4-4.5) mmol/L Arterial Blood Glucose (75-99) mg/dL Crossmatch 03/17/21 03/18/21 03/18/21 Range/Units 23:10 00:07 01:04 RBC (3.80-5.40) m/uL Hgb (11.4-16.0) gm/dL Hct (34.0-46.0) % Plt Count (150-450) k/uL Neutrophils # (1.3-7.7) k/uL Lymphocytes # (1.0-4.8) k/uL PT (9.0-12.0) sec INR (<1.2) APTT (22.0-30.0) sec ABG pH (7.35-7.45) ABG pCO2 (35-45) mmHg ABG pO2 (83-108) mmHg ABG Total CO2 (19-24) mmol/L ABG O2 Saturation (94-97) % ABG Hematocrit (34.0-46.0) % ABG Potassium (3.4-4.5) mmol/L ABG Ionized Calcium (4.5-5.3) mg/dL ABG Glucose (75-99) mg/dL ABG Lactic Acid (0.5-1.6) mmol/L Hemoglobin (11.4-16.0) gm/dL Sodium (137-145) mmol/L Potassium (3.5-5.1) mmol/L Chloride (98-107) mmol/L BUN (7-17) mg/dL Creatinine (0.52-1.04) mg/dL Glucose (74-99) mg/dL POC Glucose (mg/dL) 136 H 137 H 137 H (75-99) mg/dL Calcium (8.4-10.2) mg/dL Ionized Calcium Ziggy (4.5-5.3) mg/dL Magnesium (1.6-2.3) mg/dL AST (14-36) U/L Alkaline Phosphatase (38-126) U/L Total Protein (6.3-8.2) g/dL Albumin (3.5-5.0) g/dL Arterial Blood Potassium (3.4-4.5) mmol/L Arterial Blood Glucose (75-99) mg/dL Crossmatch 03/18/21 03/18/21 03/18/21 Range/Units 02:10 02:59 04:08 RBC 3.26 L (3.80-5.40) m/uL Hgb 9.9 L (11.4-16.0) gm/dL Hct 29.3 L (34.0-46.0) % Plt Count 83 L (150-450) k/uL Neutrophils # (1.3-7.7) k/uL Lymphocytes # 0.7 L (1.0-4.8) k/uL PT (9.0-12.0) sec INR (<1.2) APTT (22.0-30.0) sec ABG pH (7.35-7.45) ABG pCO2 (35-45) mmHg ABG pO2 (83-108) mmHg ABG Total CO2 (19-24) mmol/L ABG O2 Saturation (94-97) % ABG Hematocrit (34.0-46.0) % ABG Potassium (3.4-4.5) mmol/L ABG Ionized Calcium (4.5-5.3) mg/dL ABG Glucose (75-99) mg/dL ABG Lactic Acid (0.5-1.6) mmol/L Hemoglobin (11.4-16.0) gm/dL Sodium (137-145) mmol/L Potassium (3.5-5.1) mmol/L Chloride (98-107) mmol/L BUN (7-17) mg/dL Creatinine (0.52-1.04) mg/dL Glucose (74-99) mg/dL POC Glucose (mg/dL) 128 H 126 H (75-99) mg/dL Calcium (8.4-10.2) mg/dL Ionized Calcium Ziggy (4.5-5.3) mg/dL Magnesium (1.6-2.3) mg/dL AST (14-36) U/L Alkaline Phosphatase (38-126) U/L Total Protein (6.3-8.2) g/dL Albumin (3.5-5.0) g/dL Arterial Blood Potassium (3.4-4.5) mmol/L Arterial Blood Glucose (75-99) mg/dL Crossmatch 03/18/21 03/18/21 03/18/21 Range/Units 04:08 04:08 05:14 RBC (3.80-5.40) m/uL Hgb (11.4-16.0) gm/dL Hct (34.0-46.0) % Plt Count (150-450) k/uL Neutrophils # (1.3-7.7) k/uL Lymphocytes # (1.0-4.8) k/uL PT (9.0-12.0) sec INR (<1.2) APTT (22.0-30.0) sec ABG pH (7.35-7.45) ABG pCO2 (35-45) mmHg ABG pO2 (83-108) mmHg ABG Total CO2 (19-24) mmol/L ABG O2 Saturation (94-97) % ABG Hematocrit (34.0-46.0) % ABG Potassium (3.4-4.5) mmol/L ABG Ionized Calcium (4.5-5.3) mg/dL ABG Glucose (75-99) mg/dL ABG Lactic Acid (0.5-1.6) mmol/L Hemoglobin (11.4-16.0) gm/dL Sodium 136 L (137-145) mmol/L Potassium 3.0 L (3.5-5.1) mmol/L Chloride (98-107) mmol/L BUN 6 L (7-17) mg/dL Creatinine 0.50 L (0.52-1.04) mg/dL Glucose 115 H (74-99) mg/dL POC Glucose (mg/dL) 119 H 115 H (75-99) mg/dL Calcium 7.5 L (8.4-10.2) mg/dL Ionized Calcium Ziggy (4.5-5.3) mg/dL Magnesium (1.6-2.3) mg/dL AST 62 H (14-36) U/L Alkaline Phosphatase 30 L (38-126) U/L Total Protein 5.2 L (6.3-8.2) g/dL Albumin (3.5-5.0) g/dL Arterial Blood Potassium (3.4-4.5) mmol/L Arterial Blood Glucose (75-99) mg/dL Crossmatch 03/18/21 03/18/21 03/18/21 Range/Units 06:01 07:05 07:48 RBC (3.80-5.40) m/uL Hgb (11.4-16.0) gm/dL Hct (34.0-46.0) % Plt Count (150-450) k/uL Neutrophils # (1.3-7.7) k/uL Lymphocytes # (1.0-4.8) k/uL PT (9.0-12.0) sec INR (<1.2) APTT (22.0-30.0) sec ABG pH (7.35-7.45) ABG pCO2 (35-45) mmHg ABG pO2 (83-108) mmHg ABG Total CO2 (19-24) mmol/L ABG O2 Saturation (94-97) % ABG Hematocrit (34.0-46.0) % ABG Potassium (3.4-4.5) mmol/L ABG Ionized Calcium (4.5-5.3) mg/dL ABG Glucose (75-99) mg/dL ABG Lactic Acid (0.5-1.6) mmol/L Hemoglobin (11.4-16.0) gm/dL Sodium (137-145) mmol/L Potassium (3.5-5.1) mmol/L Chloride (98-107) mmol/L BUN (7-17) mg/dL Creatinine (0.52-1.04) mg/dL Glucose (74-99) mg/dL POC Glucose (mg/dL) 122 H 114 H 122 H (75-99) mg/dL Calcium (8.4-10.2) mg/dL Ionized Calcium Ziggy (4.5-5.3) mg/dL Magnesium (1.6-2.3) mg/dL AST (14-36) U/L Alkaline Phosphatase (38-126) U/L Total Protein (6.3-8.2) g/dL Albumin (3.5-5.0) g/dL Arterial Blood Potassium (3.4-4.5) mmol/L Arterial Blood Glucose (75-99) mg/dL Crossmatch - Imaging and Cardiology Chest x-ray: report reviewed, image reviewed Assessment and Plan Assessment: 1. Ascending aortic aneurysm, status post supra coronary ascending aortic rep lacement 2. Hypertension 3. Hyperlipidemia, treated, cholesterol 167, LDL 86, triglycerides 204 4. Previous tobacco dependence 5. Mild COPD with preoperative FEV1 67% of predicted and DLCO of 51% of predicted 6. ETOH use 2-7 drinks weekly 7. History of breast cancer status post radical right mastectomy 8. Paroxysmal vertigo 9. Family history of premature coronary artery with father from [place] at 54 years old 10. Vaccinated against Covid. 11. Postoperative acute blood loss anemia and thrombocytopenia, expected Plan: 1. Continue aspirin, statin, Plavix, beta silvestre therapy. We will increase beta silvestre therapy as tolerated. Will add Cozaar for afterload reduction 2. Wean O2 as tolerated. Encourage incentive spirometry 10 times every hour while awake. Bronchodilators per pulmonology 3. Increase activity, ambulate as tolerated. PT/OT/cardiac rehab consulted 4. GI/DVT prophylaxis 5. Will monitor daily labs and chest x-rays. Electrolyte replacement per protocol 6. Pain control with current medication regimen 7. Insulin management per primary care service. Patient is not diabetic, recent hemoglobin A1c 6.2%, does need tight blood sugar control to promote sternal union and prevent infection 8. Will discontinue Reserve. Connect Cordis to continuous CVP monitoring 9. Keep mediastinal/pleural chest tubes for another 24 hours 10. Keep Palma catheter for another 24 hours for strict accurate intake and output. Daily weights 11. More recommendations to follow as patient progresses Time with Patient: Greater than 30
[2021-03-18] MEDS ORDERED: METOPROLOL TARTRATE 12.5 MG TAB PO SCH (09:00)
[2021-03-18] MEDS ORDERED: PANTOPRAZOLE 40 MG/10 ML VIAL IVP SCH (09:00)
[2021-03-18] MEDS ORDERED: ASPIRIN 325 MG TAB PO SCH (09:00)
[2021-03-18] MEDS ORDERED: CALCIUM GLUCONATE 1 GM in SODIUM CHLORIDE 0.9% 100 ML IVPB ONE (09:00)
[2021-03-18] MEDS ORDERED: bisacodyL 10 MG SUPP RECTAL PRN (09:00)
[2021-03-18] MEDS ORDERED: MAGNESIUM HYDROXIDE 2,400 MG/10 ML CUP PO PRN (09:00)
[2021-03-18] MEDS: ASPIRIN 81 MG PO SCH (09:03)
[2021-03-18 09:12] LABS: Glucose,Whole Blood 144 mg/dL (75-99)
--- NOTE | 2021-03-18 10:07 | P.CONS ---
History of Present Illness - Reason for Consult Consult date: 03/18/21 Medical management - Chief Complaint Ascending aortic aneurysm - History of Present Illness This is a 65-year-old female with past medical history noted below significant for underlying COPD and ascending aortic aneurysm that was admitted to the hospital for elective repair. Patient is postoperative day #1 status post ascending aortic replacement with a graft and closure of PFO. She was sitting in the recliner when I saw her. She is complaining of some chest pain. She is still nothing by mouth and nursing staff informed me that her diet will be started with liquid today. No acute events overnight reported otherwise. Review of Systems Review of system: 14 points review of systems were obtained and were negative except to what were mentioned in the HPI. Past Medical History Past Medical History: Cancer, Hyperlipidemia, Hypertension, Osteoarthritis (OA) Additional Past Medical History / Comment(s): aortic aneurysm since 2018, getting larger, recent CT scan, emphysema, hx. breast cancer 20 yrs. ago, paroxysmal vertigo History of Any Multi-Drug Resistant Organisms: None Reported Past Surgical History: Breast Surgery, Heart Catheterization Additional Past Surgical History / Comment(s): right radical mastectomy 1990, right oophorectomy, cyst removed from left ovary, D & C Past Anesthesia/Blood Transfusion Reactions: No Reported Reaction Smoking Status: Former smoker - Past Family History Father Family Medical History: Coronary Artery Disease (CAD) Medications and Allergies Home Medications Medication Instructions Recorded Confirmed Type Rosuvastatin Calcium [Crestor] 2.5 mg PO HS 04/15/18 03/17/21 History Ascorbic Acid [Vitamin C] 1,000 mg PO DAILY 02/20/21 03/17/21 History Ipratropium [place] 0.06%Nasal 2 spray EA NOSTRIL BID PRN 02/20/21 03/17/21 History [Atrovent Nasal 0.06%] Metoprolol Succinate (ER) [Toprol 25 mg PO HS 02/20/21 03/17/21 History XL] Zinc 25 mg PO Q2D 02/20/21 03/17/21 History Albuterol Inhaler [Ventolin Hfa 2 puff INHALATION BID 03/11/21 03/17/21 History Inhaler] Cholecalciferol [Vitamin D3 (25 25 mcg PO DAILY 03/11/21 03/17/21 History Mcg = 1000 Iu)] Fish Oil/Dha/Epa [Fish Oil 1,200 1 each PO DAILY 03/11/21 03/17/21 History mg Fish Oil] Glucos Sul 2Kcl/MSM/Chond/C/Mn 1 each PO DAILY 03/11/21 03/17/21 History [Glucosamine Chondroitin Cap] [place]-3 Fatty Acids [[place]-3] 600 mg PO DAILY 03/11/21 03/17/21 History Allergies Allergy/AdvReac Type Severity Reaction Status Date / Time codeine AdvReac nausea, Verified 03/17/21 06:22 felt "out of it" Physical Exam Vitals: Vital Signs Temp Pulse Resp BP Pulse Ox 03/18/21 09:00 79 22 111/52 86 L 03/18/21 08:23 78 18 03/18/21 08:07 74 18 03/18/21 08:00 97.9 F 76 18 108/51 91 L 03/18/21 07:00 73 16 109/48 97 03/18/21 06:00 73 15 105/51 92 L 03/18/21 05:00 72 18 104/50 93 L 03/18/21 04:00 72 18 110/45 93 L 03/18/21 03:00 75 14 101/51 92 L 03/18/21 02:00 73 18 107/51 92 L 03/18/21 01:00 75 22 107/60 90 L 03/18/21 00:00 76 22 104/47 92 L 03/17/21 23:30 75 19 92 L 03/17/21 23:00 78 19 109/58 94 L 03/17/21 22:30 79 19 92 L 03/17/21 22:00 77 15 97/52 94 L 03/17/21 21:42 74 03/17/21 21:34 71 03/17/21 21:30 72 16 93 L 03/17/21 21:00 70 19 85/39 94 L 03/17/21 20:30 68 20 90 L 03/17/21 20:00 66 19 80/35 95 03/17/21 19:30 64 16 99 03/17/21 19:00 60 16 82/46 96 03/17/21 18:45 61 17 96 03/17/21 18:30 61 17 94 L 03/17/21 18:15 64 19 95 03/17/21 18:00 62 18 95/53 97 03/17/21 17:45 71 28 H 97 03/17/21 17:30 73 13 98 03/17/21 17:15 79 21 87 L 03/17/21 17:00 80 14 113/68 82 L 03/17/21 16:45 70 23 99 03/17/21 16:30 69 23 100 03/17/21 16:15 70 23 98 03/17/21 16:00 97.7 F 69 23 100/58 99 03/17/21 15:45 69 23 100 03/17/21 15:30 69 23 100 03/17/21 15:15 80 20 100 03/17/21 15:00 70 17 94/52 100 03/17/21 14:45 64 20 99 03/17/21 14:30 80 28 H 100 03/17/21 14:29 100 Intake and Output 03/17/21 03/18/21 03/18/21 22:59 06:59 14:59 Intake Total 237.832 6580.322 275.787 Output Total 910 1479 250 Balance -175.458 146.322 25.787 Intake: IV 682 812 267 ACETAMINOPHEN IV (For NPO 100 ) 1,000 mg In Empty Bag 1 bag @ 400 mls/hr IVPB Q6HR RASHID Rx#:[id number] CO/CI 210 240 90 Kefzol 50 Pressure Bag 72 72 27 Sodium Chloride 0.9% 1, 400 350 150 000 ml @ 20 mls/hr IV . Q24H RASHID Rx#:[id number] Intake, IV Titration 52.542 63.322 8.787 Amount Clevidipine Butyrate 25 4.134 37.634 mg In Empty Bag 1 bag @ 1 MG/HR 2 mls/hr IV .Q24H RASHID Rx#:[id number] Dexmedetomidine/0.9% NaCl 17.348 (Pmx) 400 mcg In Empty Bag 1 bag @ 0.2 MCG/KG/HR 4.05 mls/hr IV .Q24H RASHID Rx#:[id number] Insulin Regular 100 unit 12.633 25.688 8.787 In Sodium Chloride 0.9% 100 ml @ Per Protocol IV .Q0M RASHID Rx#:[id number] propofoL 1,000 mg In 18.427 Empty Bag 1 bag @ Titrate IV .Q0M RASHID Rx#: [id number] Oral 750 Output: Chest Tube Drainage 435 204 90 Left Pleural 199 60 0 Mediastinal x2 150 80 60 Right Pleural 86 64 30 Urine 475 1275 160 Other: Voiding Method Indwelling Catheter Indwelling Catheter Indwelling Catheter Weight 88.5 kg ABP, PAP, CO, CI - Last 8 Hours Arterial Blood Pressure 159/48 Arterial Blood Pressure 143/49 Arterial Blood Pressure 139/48 Arterial Blood Pressure 125/45 Arterial Blood Pressure 144/48 Arterial Blood Pressure 141/48 Arterial Blood Pressure 131/44 Arterial Blood Pressure 150/50 Pulmonary Artery Pressure 26/11 Pulmonary Artery Pressure 28/12 Pulmonary Artery Pressure 21/9 Pulmonary Artery Pressure 24/11 Pulmonary Artery Pressure 26/14 Pulmonary Artery Pressure 28/14 Pulmonary Artery Pressure 24/12 Pulmonary Artery Pressure 26/11 Cardiac Output 4.5 Cardiac Output 4.5 Cardiac Output 4.5 Cardiac Output 5.3 Cardiac Output 5.1 Cardiac Output 4.3 Cardiac Output 5.3 Cardiac Output 4.6 Cardiac Index 2.3 Cardiac Index 2.3 Cardiac Index 2.3 Cardiac Index 2.7 Cardiac Index 2.6 Cardiac Index 2.2 Cardiac Index 2.7 Cardiac Index 2.3 General: The patient is awake and alert, in no distress Eye: there is normal conjunctiva bilaterally. Neck: The neck is supple, there is no JVD. Cardiovascular: Normal S1-S2, no S3-S4, no murmurs. Respiratory: Lungs clear to auscultation bilaterally Gastrointestinal: Abdomen is soft, nontender Musculoskeletal: There is no pedal edema. Neurological:. Speech is normal. Skin: Skin is warm and dry Results CBC & Chem 7: 03/18/21 04:08 03/18/21 04:08 Labs: Abnormal Lab Results - Last 24 Hours (Table) 03/11/21 03/17/21 03/17/21 Range/Units 10:30 07:30 08:22 RBC (3.80-5.40) m/uL Hgb (11.4-16.0) gm/dL Hct (34.0-46.0) % Plt Count (150-450) k/uL Neutrophils # (1.3-7.7) k/uL Lymphocytes # (1.0-4.8) k/uL PT (9.0-12.0) sec INR (<1.2) APTT (22.0-30.0) sec ABG pH 7.34 L (7.35-7.45) ABG pCO2 47 H (35-45) mmHg ABG pO2 133 H 152 H (83-108) mmHg ABG Total CO2 27 H 25 H (19-24) mmol/L ABG O2 Saturation 98.9 H 99.5 H (94-97) % ABG Hematocrit (34.0-46.0) % ABG Potassium (3.4-4.5) mmol/L ABG Ionized Calcium (4.5-5.3) mg/dL ABG Glucose 132 H (75-99) mg/dL ABG Lactic Acid (0.5-1.6) mmol/L Hemoglobin (11.4-16.0) gm/dL Sodium (137-145) mmol/L Potassium (3.5-5.1) mmol/L Chloride (98-107) mmol/L BUN (7-17) mg/dL Creatinine (0.52-1.04) mg/dL Glucose (74-99) mg/dL POC Glucose (mg/dL) (75-99) mg/dL Calcium (8.4-10.2) mg/dL Ionized Calcium Ziggy (4.5-5.3) mg/dL Magnesium (1.6-2.3) mg/dL AST (14-36) U/L Alkaline Phosphatase (38-126) U/L Total Protein (6.3-8.2) g/dL Albumin (3.5-5.0) g/dL Arterial Blood Potassium (3.4-4.5) mmol/L Arterial Blood Glucose 132 H (75-99) mg/dL Crossmatch See Detail 03/17/21 03/17/21 03/17/21 Range/Units 09:27 10:04 10:38 RBC (3.80-5.40) m/uL Hgb (11.4-16.0) gm/dL Hct (34.0-46.0) % Plt Count (150-450) k/uL Neutrophils # (1.3-7.7) k/uL Lymphocytes # (1.0-4.8) k/uL PT (9.0-12.0) sec INR (<1.2) APTT (22.0-30.0) sec ABG pH (7.35-7.45) ABG pCO2 (35-45) mmHg ABG pO2 186 H >420 H 310 H (83-108) mmHg ABG Total CO2 26 H (19-24) mmol/L ABG O2 Saturation 99.6 H 100.0 H 100.0 H (94-97) % ABG Hematocrit 31 L 31 L (34.0-46.0) % ABG Potassium 4.9 H (3.4-4.5) mmol/L ABG Ionized Calcium 3.8 L 4.1 L (4.5-5.3) mg/dL ABG Glucose 123 H 117 H 122 H (75-99) mg/dL ABG Lactic Acid (0.5-1.6) mmol/L Hemoglobin 10.1 L 10.1 L (11.4-16.0) gm/dL Sodium (137-145) mmol/L Potassium (3.5-5.1) mmol/L Chloride (98-107) mmol/L BUN (7-17) mg/dL Creatinine (0.52-1.04) mg/dL Glucose (74-99) mg/dL POC Glucose (mg/dL) (75-99) mg/dL Calcium (8.4-10.2) mg/dL Ionized Calcium Ziggy (4.5-5.3) mg/dL Magnesium (1.6-2.3) mg/dL AST (14-36) U/L Alkaline Phosphatase (38-126) U/L Total Protein (6.3-8.2) g/dL Albumin (3.5-5.0) g/dL Arterial Blood Potassium 4.9 H (3.4-4.5) mmol/L Arterial Blood Glucose 123 H 117 H 122 H (75-99) mg/dL Crossmatch 03/17/21 03/17/21 03/17/21 Range/Units 11:10 11:43 12:15 RBC (3.80-5.40) m/uL Hgb (11.4-16.0) gm/dL Hct (34.0-46.0) % Plt Count (150-450) k/uL Neutrophils # (1.3-7.7) k/uL Lymphocytes # (1.0-4.8) k/uL PT (9.0-12.0) sec INR (<1.2) APTT (22.0-30.0) sec ABG pH 7.21 L (7.35-7.45) ABG pCO2 62 H (35-45) mmHg ABG pO2 222 H >420 H 254 H (83-108) mmHg ABG Total CO2 26 H 25 H 26 H (19-24) mmol/L ABG O2 Saturation 100.0 H 100.0 H 99.9 H (94-97) % ABG Hematocrit 27 L 27 L 23 L (34.0-46.0) % ABG Potassium 5.0 H 5.6 H 5.1 H (3.4-4.5) mmol/L ABG Ionized Calcium 3.8 L 3.9 L 3.7 L (4.5-5.3) mg/dL ABG Glucose 133 H 137 H 150 H (75-99) mg/dL ABG Lactic Acid 2.2 H* (0.5-1.6) mmol/L Hemoglobin 8.8 L 8.7 L 7.5 L (11.4-16.0) gm/dL Sodium (137-145) mmol/L Potassium (3.5-5.1) mmol/L Chloride (98-107) mmol/L BUN (7-17) mg/dL Creatinine (0.52-1.04) mg/dL Glucose (74-99) mg/dL POC Glucose (mg/dL) (75-99) mg/dL Calcium (8.4-10.2) mg/dL Ionized Calcium Ziggy (4.5-5.3) mg/dL Magnesium (1.6-2.3) mg/dL AST (14-36) U/L Alkaline Phosphatase (38-126) U/L Total Protein (6.3-8.2) g/dL Albumin (3.5-5.0) g/dL Arterial Blood Potassium 5.0 H 5.6 H 5.1 H (3.4-4.5) mmol/L Arterial Blood Glucose 133 H 137 H 150 H (75-99) mg/dL Crossmatch 03/17/21 03/17/21 03/17/21 Range/Units 13:41 14:40 14:40 RBC 3.55 L (3.80-5.40) m/uL Hgb 10.6 L D (11.4-16.0) gm/dL Hct 31.5 L (34.0-46.0) % Plt Count 82 L D (150-450) k/uL Neutrophils # (1.3-7.7) k/uL Lymphocytes # (1.0-4.8) k/uL PT 12.7 H (9.0-12.0) sec INR 1.2 H (<1.2) APTT 64.7 H (22.0-30.0) sec ABG pH 7.32 L (7.35-7.45) ABG pCO2 (35-45) mmHg ABG pO2 148 H (83-108) mmHg ABG Total CO2 (19-24) mmol/L ABG O2 Saturation 99.2 H (94-97) % ABG Hematocrit (34.0-46.0) % ABG Potassium (3.4-4.5) mmol/L ABG Ionized Calcium 3.9 L (4.5-5.3) mg/dL ABG Glucose 150 H (75-99) mg/dL ABG Lactic Acid 2.1 H (0.5-1.6) mmol/L Hemoglobin (11.4-16.0) gm/dL Sodium (137-145) mmol/L Potassium (3.5-5.1) mmol/L Chloride (98-107) mmol/L BUN (7-17) mg/dL Creatinine (0.52-1.04) mg/dL Glucose (74-99) mg/dL POC Glucose (mg/dL) (75-99) mg/dL Calcium (8.4-10.2) mg/dL Ionized Calcium [place] (4.5-5.3) mg/dL Magnesium (1.6-2.3) mg/dL AST (14-36) U/L Alkaline Phosphatase (38-126) U/L Total Protein (6.3-8.2) g/dL Albumin (3.5-5.0) g/dL Arterial Blood Potassium (3.4-4.5) mmol/L Arterial Blood Glucose 150 H (75-99) mg/dL Crossmatch 03/17/21 03/17/21 03/17/21 Range/Units 14:40 14:45 15:04 RBC (3.80-5.40) m/uL Hgb (11.4-16.0) gm/dL Hct (34.0-46.0) % Plt Count (150-450) k/uL Neutrophils # (1.3-7.7) k/uL Lymphocytes # (1.0-4.8) k/uL PT (9.0-12.0) sec INR (<1.2) APTT (22.0-30.0) sec ABG pH (7.35-7.45) ABG pCO2 (35-45) mmHg ABG pO2 (83-108) mmHg ABG Total CO2 25 H (19-24) mmol/L ABG O2 Saturation 98.1 H (94-97) % ABG Hematocrit (34.0-46.0) % ABG Potassium (3.4-4.5) mmol/L ABG Ionized Calcium (4.5-5.3) mg/dL ABG Glucose (75-99) mg/dL ABG Lactic Acid (0.5-1.6) mmol/L Hemoglobin (11.4-16.0) gm/dL Sodium (137-145) mmol/L Potassium (3.5-5.1) mmol/L Chloride 109 H (98-107) mmol/L BUN (7-17) mg/dL Creatinine (0.52-1.04) mg/dL Glucose 144 H (74-99) mg/dL POC Glucose (mg/dL) 146 H (75-99) mg/dL Calcium 6.7 L (8.4-10.2) mg/dL Ionized Calcium [place] 4.4 L (4.5-5.3) mg/dL Magnesium 2.4 H (1.6-2.3) mg/dL AST 71 H (14-36) U/L Alkaline Phosphatase 20 L (38-126) U/L Total Protein 4.3 L (6.3-8.2) g/dL Albumin 2.6 L (3.5-5.0) g/dL Arterial Blood Potassium (3.4-4.5) mmol/L Arterial Blood Glucose (75-99) mg/dL Crossmatch 03/17/21 03/17/21 03/17/21 Range/Units 16:05 17:40 17:40 RBC 3.73 L (3.80-5.40) m/uL Hgb 11.0 L (11.4-16.0) gm/dL Hct 33.7 L (34.0-46.0) % Plt Count 102 L (150-450) k/uL Neutrophils # 8.8 H (1.3-7.7) k/uL Lymphocytes # (1.0-4.8) k/uL PT (9.0-12.0) sec INR (<1.2) APTT (22.0-30.0) sec ABG pH (7.35-7.45) ABG pCO2 (35-45) mmHg ABG pO2 (83-108) mmHg ABG Total CO2 (19-24) mmol/L ABG O2 Saturation (94-97) % ABG Hematocrit (34.0-46.0) % ABG Potassium (3.4-4.5) mmol/L ABG Ionized Calcium (4.5-5.3) mg/dL ABG Glucose (75-99) mg/dL ABG Lactic Acid (0.5-1.6) mmol/L Hemoglobin (11.4-16.0) gm/dL Sodium (137-145) mmol/L Potassium (3.5-5.1) mmol/L Chloride (98-107) mmol/L BUN (7-17) mg/dL Creatinine (0.52-1.04) mg/dL Glucose (74-99) mg/dL POC Glucose (mg/dL) 178 H 169 H (75-99) mg/dL Calcium (8.4-10.2) mg/dL Ionized Calcium Ziggy (4.5-5.3) mg/dL Magnesium (1.6-2.3) mg/dL AST (14-36) U/L Alkaline Phosphatase (38-126) U/L Total Protein (6.3-8.2) g/dL Albumin (3.5-5.0) g/dL Arterial Blood Potassium (3.4-4.5) mmol/L Arterial Blood Glucose (75-99) mg/dL Crossmatch 03/17/21 03/17/21 03/17/21 Range/Units 17:55 19:01 19:59 RBC (3.80-5.40) m/uL Hgb (11.4-16.0) gm/dL Hct (34.0-46.0) % Plt Count (150-450) k/uL Neutrophils # (1.3-7.7) k/uL Lymphocytes # (1.0-4.8) k/uL PT (9.0-12.0) sec INR (<1.2) APTT (22.0-30.0) sec ABG pH (7.35-7.45) ABG pCO2 (35-45) mmHg ABG pO2 81 L (83-108) mmHg ABG Total CO2 (19-24) mmol/L ABG O2 Saturation (94-97) % ABG Hematocrit (34.0-46.0) % ABG Potassium (3.4-4.5) mmol/L ABG Ionized Calcium (4.5-5.3) mg/dL ABG Glucose (75-99) mg/dL ABG Lactic Acid (0.5-1.6) mmol/L Hemoglobin (11.4-16.0) gm/dL Sodium (137-145) mmol/L Potassium (3.5-5.1) mmol/L Chloride (98-107) mmol/L BUN (7-17) mg/dL Creatinine (0.52-1.04) mg/dL Glucose (74-99) mg/dL POC Glucose (mg/dL) 152 H 144 H (75-99) mg/dL Calcium (8.4-10.2) mg/dL Ionized Calcium Ziggy (4.5-5.3) mg/dL Magnesium (1.6-2.3) mg/dL AST (14-36) U/L Alkaline Phosphatase (38-126) U/L Total Protein (6.3-8.2) g/dL Albumin (3.5-5.0) g/dL Arterial Blood Potassium (3.4-4.5) mmol/L Arterial Blood Glucose (75-99) mg/dL Crossmatch 03/17/21 03/17/21 03/17/21 Range/Units 20:00 20:57 21:57 RBC 3.18 L (3.80-5.40) m/uL Hgb 9.2 L D (11.4-16.0) gm/dL Hct 28.0 L (34.0-46.0) % Plt Count 76 L (150-450) k/uL Neutrophils # (1.3-7.7) k/uL Lymphocytes # 0.8 L (1.0-4.8) k/uL PT (9.0-12.0) sec INR (<1.2) APTT (22.0-30.0) sec ABG pH (7.35-7.45) ABG pCO2 (35-45) mmHg ABG pO2 (83-108) mmHg ABG Total CO2 (19-24) mmol/L ABG O2 Saturation (94-97) % ABG Hematocrit (34.0-46.0) % ABG Potassium (3.4-4.5) mmol/L ABG Ionized Calcium (4.5-5.3) mg/dL ABG Glucose (75-99) mg/dL ABG Lactic Acid (0.5-1.6) mmol/L Hemoglobin (11.4-16.0) gm/dL Sodium (137-145) mmol/L Potassium (3.5-5.1) mmol/L Chloride (98-107) mmol/L BUN (7-17) mg/dL Creatinine (0.52-1.04) mg/dL Glucose (74-99) mg/dL POC Glucose (mg/dL) 137 H 132 H (75-99) mg/dL Calcium (8.4-10.2) mg/dL Ionized Calcium Ziggy (4.5-5.3) mg/dL Magnesium (1.6-2.3) mg/dL AST (14-36) U/L Alkaline Phosphatase (38-126) U/L Total Protein (6.3-8.2) g/dL Albumin (3.5-5.0) g/dL Arterial Blood Potassium (3.4-4.5) mmol/L Arterial Blood Glucose (75-99) mg/dL Crossmatch 03/17/21 03/18/21 03/18/21 Range/Units 23:10 00:07 01:04 RBC (3.80-5.40) m/uL Hgb (11.4-16.0) gm/dL Hct (34.0-46.0) % Plt Count (150-450) k/uL Neutrophils # (1.3-7.7) k/uL Lymphocytes # (1.0-4.8) k/uL PT (9.0-12.0) sec INR (<1.2) APTT (22.0-30.0) sec ABG pH (7.35-7.45) ABG pCO2 (35-45) mmHg ABG pO2 (83-108) mmHg ABG Total CO2 (19-24) mmol/L ABG O2 Saturation (94-97) % ABG Hematocrit (34.0-46.0) % ABG Potassium (3.4-4.5) mmol/L ABG Ionized Calcium (4.5-5.3) mg/dL ABG Glucose (75-99) mg/dL ABG Lactic Acid (0.5-1.6) mmol/L Hemoglobin (11.4-16.0) gm/dL Sodium (137-145) mmol/L Potassium (3.5-5.1) mmol/L Chloride (98-107) mmol/L BUN (7-17) mg/dL Creatinine (0.52-1.04) mg/dL Glucose (74-99) mg/dL POC Glucose (mg/dL) 136 H 137 H 137 H (75-99) mg/dL Calcium (8.4-10.2) mg/dL Ionized Calcium Ziggy (4.5-5.3) mg/dL Magnesium (1.6-2.3) mg/dL AST (14-36) U/L Alkaline Phosphatase (38-126) U/L Total Protein (6.3-8.2) g/dL Albumin (3.5-5.0) g/dL Arterial Blood Potassium (3.4-4.5) mmol/L Arterial Blood Glucose (75-99) mg/dL Crossmatch 03/18/21 03/18/21 03/18/21 Range/Units 02:10 02:59 04:08 RBC 3.26 L (3.80-5.40) m/uL Hgb 9.9 L (11.4-16.0) gm/dL Hct 29.3 L (34.0-46.0) % Plt Count 83 L (150-450) k/uL Neutrophils # (1.3-7.7) k/uL Lymphocytes # 0.7 L (1.0-4.8) k/uL PT (9.0-12.0) sec INR (<1.2) APTT (22.0-30.0) sec ABG pH (7.35-7.45) ABG pCO2 (35-45) mmHg ABG pO2 (83-108) mmHg ABG Total CO2 (19-24) mmol/L ABG O2 Saturation (94-97) % ABG Hematocrit (34.0-46.0) % ABG Potassium (3.4-4.5) mmol/L ABG Ionized Calcium (4.5-5.3) mg/dL ABG Glucose (75-99) mg/dL ABG Lactic Acid (0.5-1.6) mmol/L Hemoglobin (11.4-16.0) gm/dL Sodium (137-145) mmol/L Potassium (3.5-5.1) mmol/L Chloride (98-107) mmol/L BUN (7-17) mg/dL Creatinine (0.52-1.04) mg/dL Glucose (74-99) mg/dL POC Glucose (mg/dL) 128 H 126 H (75-99) mg/dL Calcium (8.4-10.2) mg/dL Ionized Calcium Ziggy (4.5-5.3) mg/dL Magnesium (1.6-2.3) mg/dL AST (14-36) U/L Alkaline Phosphatase (38-126) U/L Total Protein (6.3-8.2) g/dL Albumin (3.5-5.0) g/dL Arterial Blood Potassium (3.4-4.5) mmol/L Arterial Blood Glucose (75-99) mg/dL Crossmatch 03/18/21 03/18/21 03/18/21 Range/Units 04:08 04:08 05:14 RBC (3.80-5.40) m/uL Hgb (11.4-16.0) gm/dL Hct (34.0-46.0) % Plt Count (150-450) k/uL Neutrophils # (1.3-7.7) k/uL Lymphocytes # (1.0-4.8) k/uL PT (9.0-12.0) sec INR (<1.2) APTT (22.0-30.0) sec ABG pH (7.35-7.45) ABG pCO2 (35-45) mmHg ABG pO2 (83-108) mmHg ABG Total CO2 (19-24) mmol/L ABG O2 Saturation (94-97) % ABG Hematocrit (34.0-46.0) % ABG Potassium (3.4-4.5) mmol/L ABG Ionized Calcium (4.5-5.3) mg/dL ABG Glucose (75-99) mg/dL ABG Lactic Acid (0.5-1.6) mmol/L Hemoglobin (11.4-16.0) gm/dL Sodium 136 L (137-145) mmol/L Potassium 3.0 L (3.5-5.1) mmol/L Chloride (98-107) mmol/L BUN 6 L (7-17) mg/dL Creatinine 0.50 L (0.52-1.04) mg/dL Glucose 115 H (74-99) mg/dL POC Glucose (mg/dL) 119 H 115 H (75-99) mg/dL Calcium 7.5 L (8.4-10.2) mg/dL Ionized Calcium Ziggy (4.5-5.3) mg/dL Magnesium (1.6-2.3) mg/dL AST 62 H (14-36) U/L Alkaline Phosphatase 30 L (38-126) U/L Total Protein 5.2 L (6.3-8.2) g/dL Albumin (3.5-5.0) g/dL Arterial Blood Potassium (3.4-4.5) mmol/L Arterial Blood Glucose (75-99) mg/dL Crossmatch 03/18/21 03/18/21 03/18/21 Range/Units 06:01 07:05 07:48 RBC (3.80-5.40) m/uL Hgb (11.4-16.0) gm/dL Hct (34.0-46.0) % Plt Count (150-450) k/uL Neutrophils # (1.3-7.7) k/uL Lymphocytes # (1.0-4.8) k/uL PT (9.0-12.0) sec INR (<1.2) APTT (22.0-30.0) sec ABG pH (7.35-7.45) ABG pCO2 (35-45) mmHg ABG pO2 (83-108) mmHg ABG Total CO2 (19-24) mmol/L ABG O2 Saturation (94-97) % ABG Hematocrit (34.0-46.0) % ABG Potassium (3.4-4.5) mmol/L ABG Ionized Calcium (4.5-5.3) mg/dL ABG Glucose (75-99) mg/dL ABG Lactic Acid (0.5-1.6) mmol/L Hemoglobin (11.4-16.0) gm/dL Sodium (137-145) mmol/L Potassium (3.5-5.1) mmol/L Chloride (98-107) mmol/L BUN (7-17) mg/dL Creatinine (0.52-1.04) mg/dL Glucose (74-99) mg/dL POC Glucose (mg/dL) 122 H 114 H 122 H (75-99) mg/dL Calcium (8.4-10.2) mg/dL Ionized Calcium Ziggy (4.5-5.3) mg/dL Magnesium (1.6-2.3) mg/dL AST (14-36) U/L Alkaline Phosphatase (38-126) U/L Total Protein (6.3-8.2) g/dL Albumin (3.5-5.0) g/dL Arterial Blood Potassium (3.4-4.5) mmol/L Arterial Blood Glucose (75-99) mg/dL Crossmatch 03/18/21 Range/Units 09:10 RBC (3.80-5.40) m/uL Hgb (11.4-16.0) gm/dL Hct (34.0-46.0) % Plt Count (150-450) k/uL Neutrophils # (1.3-7.7) k/uL Lymphocytes # (1.0-4.8) k/uL PT (9.0-12.0) sec INR (<1.2) APTT (22.0-30.0) sec ABG pH (7.35-7.45) ABG pCO2 (35-45) mmHg ABG pO2 (83-108) mmHg ABG Total CO2 (19-24) mmol/L ABG O2 Saturation (94-97) % ABG Hematocrit (34.0-46.0) % ABG Potassium (3.4-4.5) mmol/L ABG Ionized Calcium (4.5-5.3) mg/dL ABG Glucose (75-99) mg/dL ABG Lactic Acid (0.5-1.6) mmol/L Hemoglobin (11.4-16.0) gm/dL Sodium (137-145) mmol/L Potassium (3.5-5.1) mmol/L Chloride (98-107) mmol/L BUN (7-17) mg/dL Creatinine (0.52-1.04) mg/dL Glucose (74-99) mg/dL POC Glucose (mg/dL) 144 H (75-99) mg/dL Calcium (8.4-10.2) mg/dL Ionized Calcium Ziggy (4.5-5.3) mg/dL Magnesium (1.6-2.3) mg/dL AST (14-36) U/L Alkaline Phosphatase (38-126) U/L Total Protein (6.3-8.2) g/dL Albumin (3.5-5.0) g/dL Arterial Blood Potassium (3.4-4.5) mmol/L Arterial Blood Glucose (75-99) mg/dL Crossmatch Assessment and Plan Assessment: 1. Postoperative day #1 status post ascending aortic graft replacement for underlying ascending aortic aneurysm 2. Hyperlipidemia on Lipitor, LDL 86 3. Underlying COPD with no evidence of exacerbation 4. Anemia and thrombocytopenia, postoperative. Monitor CBC closely Today, I reviewed her medication list and lab work results. Rodolfo current regimen. I will continue to follow up on the patient closely with you. Thank you for the consultation.
--- NOTE | 2021-03-18 11:33 | OP ---
OPERATIVE REPORT DATE OF THE SURGERY: 03/17/2021. SURGEON: Dr. Nicol Leger. SALES ASSISTANT INSTITUTIONAL SALES: Saumya Bolaños and Meg IGNACIO. PREOPERATIVE DIAGNOSES: Ascending aortic aneurysm, hyperlipidemia, moderate chronic obstructive pulmonary disease in an ex smoker, hypertension, positional vertigo. POSTOPERATIVE DIAGNOSES: Ascending aortic aneurysm, hyperlipidemia, moderate chronic obstructive pulmonary disease in an ex smoker, hypertension, positional vertigo. Large patent Weathers ovale with a spontaneous [id number] shunt. PROCEDURE: 1. Supra coronary ascending aortic replacement using a 32 mm gel weave graft. 2. Closure of patent Weathers ovale. 3. Exclusion of the left atrial appendage using a 35 mm AtriClip. 4. Intraoperative transesophageal echocardiogram and epiaortic scanning. INDICATION FOR SURGERY: The patient is a 65-year-old lady who has been followed as an outpatient and showed recently expansion of her moderately to large aneurysm by at least 0.5 cm in 1 year and it is close to 6 cm at this point. She has a normal aortic root and normal aortic valve. In view of her age and dimension at this point, decision was made to proceed with elective ascending aortic replacement. The STS risk was discussed with the patient. She understood it and agreed to proceed. DESCRIPTION OF THE PROCEDURE: The patient in supine position in the preoperative holding area, a right internal jugular [place] catheter and a right radial arterial line were placed. The patient had normal PA pressure and good cardiac index. Subsequently she was brought to the operating room where general endotracheal anesthesia was induced uneventfully. The patient received 2 g of cefazolin intravenously. The chest, abdomen, both lower extremities were prepped and draped using ChloraPrep. Ioban was used to cover the skin. Transesophageal echocardiogram confirmed the preoperative finding of preserved LV function and a normal aortic valve that was trileaflet with no aortic valve regurgitation and normal root. However, we found a large patent Weathers ovale with spontaneous left to right shunt and decision was made to eventually close that. Midline sternotomy was performed and no bone wax was used. Both pleura had been opened and each was drained with a 19-Grenadian Carlton drain. Pericardial cradle was created. Mediastinal fat was transected between 2 ties. Epiaortic scanning revealed no protruding atheroma in the ascending aorta. The heart was normal in size and there was a large ascending aortic aneurysm that tapered before the innominate artery takeoff. After systemic heparinization, after placement of respective pledgeted pursestring, aortic cannulation of the proximal arch with a 21-Grenadian soft flow cannula, direct SVC cannulation with a right angle 28-Grenadian cannula and IVC cannulation at the junction with the right atrium with a 30-Grenadian straight cannula was performed. Cardiopulmonary bypass was initiated and patient temperature was allowed to drift down to 34 degrees Celsius. Both cava were encircled at this point with umbilical tape. Aorta was clamped and during aortic clamping, myocardial protection was achieved with an initial dose of around 600 mL of antegrade cold blood cardioplegia with adequate arrest at around 150 mL followed by 300 mL of retrograde cold blood cardioplegia. All subsequent doses were given retrograde at 15 minute interval except some warm blood given via the antegrade route at the end of the procedure before unclamping. We started by excluding the left atrial appendage using a 35 mm AtriClip deployed at its base. At this point, attention was moved at the ascending aortic aneurysm part. The aorta was opened in a longitudinal fashion up 1 cm from the aortic clamp and up to 1 cm above the sinotubular junction and opened around 2/3 of its circumference on either side. A 32 mm gel weave graft was selected as this was the dimension of the sinotubular junction and the proximal anastomotic line was performed using a running 4-0 Prolene SH with no need for reinforcement in the posterior aspect as it was an aortic wall folding on each other, but for the anterior 2/3, we reinforced the closure with a Rian felt. Looking from inside, there were a couple of areas of buckling that I closed from inside with a pledgeted 4-0 BB Prolene. That graft was tested under tension by putting the antegrade perfusion cannula in it and filling it and pressurizing it and that proximal line appeared to be totally hemostatic with no AI. The graft was trimmed to length and at this point, the distal anastomotic line also was performed in the same fashion using Prolene 4-0 with no need for reinforcement of the posterior aspect, but reinforcement to the Rian flap over the 2/3 anterior circumference of the aorta and we had a good match. A pledgeted 4-0 Prolene was placed in the mid of the ascending aortic graft and the cardioplegia needle and vent were reinserted. At this point, attention was moved at closing the patent Weathers ovale. Both caval snares were tightened. The retrograde cardioplegia catheter was removed and the hole was extended to make a 5 cm oblique right atriotomy. Exploration revealed a large PFO with a flap that was closed using a running 4-0 Prolene pledgeted on each side and in 2 layers. The CO2 was flowing over the field as long as the PFO was not closed yet. The atriotomy was closed using a 4-0 Prolene, reinforced by 2 strips of autologous pericardium that I harvested on either side and in 2 layers. De-airing maneuvers were followed. The patient was placed in Trendelenburg position. An aortic event was on maximum before unclamping the aorta. The patient regained slow junctional rhythm and eventually spontaneous sinus rhythm. Hemostasis required 1 extra suture on the posterior aspect of the distal anastomosis and then again another one needed to be placed to control a loose Prolene area at that level. Otherwise, things were pretty good. The antegrade cannulation site was leaking around the cannula and after initial de-airing maneuver with filling up the heart and blowing up the lungs and with no air, I elected to remove that cannula and it required several 4-0 pledgeted Prolene to stop the bleeding in that graft. Satisfied, test dose and then full dose protamine was given. Hemostasis appeared to be adequate. Coseal was placed on the anastomotic line. The remaining aortic aneurysm wall was closed over the graft using a running 3-0 Prolene. There was no aortic graft sent to pathology for that reason. Two nineteen-Grenadian Carlton drains were left substernally. One monopolar atrial pacing wires were affixed to the right atriotomy and another was 1 affixed to the junction of the SVC of the right atrium as the atrial wall was very thin. No ventricular pacing wire was placed also for very friable tissues. Mediastinal fat and pericardial fat were approximated over the aorta and part of the RV. After ensuring adequate hemostasis and hemodynamic and after correct sponge, instrument, and needle count, the sternum was closed using 5 [id number] pionneer cables after interposing fibrillar between the sternal edges. Thorough irrigation with cefazolin followed. The rest of the closure proceeded in layers. Skin glue was applied. The patient's JAIRO showed no evidence of an aortic valve leak and good function and no air. The patient did not receive blood bank product but received 400 mL of Cell Saver blood. The cardiac index was 2 and PA pressure was 30/12 with A-pacing at 80, as her rhythm was around 60 sinus with good conduction when moved to the ICU. FLORECITA / MARISELA: [id number] / MTDD
[2021-03-18] MEDS: SODIUM CHLORIDE 0.9% 1,000 ML IV SCH (12:07)
[2021-03-18 12:49] LABS: Glucose,Whole Blood 126 mg/dL (75-99)
[2021-03-18] MEDS ORDERED: POTASSIUM CHLORIDE ER 20 MEQ TAB.ER PO STA ×2 (13:49→17:32)
--- NOTE | 2021-03-18 13:49 | P.PN ---
Subjective Progress Note Date: 03/18/21 Principal diagnosis: POD #1 Supra coronary ascending aortic replacement with 32 mm gelweave graft, closure of PFO, exclusion of left atrial appendage with 35 mm Atriclup, introperative transesophageal echocardiogram This is a 65-year-old female with ascending aortic aneurysm, patient underwent repair of the aneurysm today, her last cardiac catheterization on 02/26 showed no evidence of significant coronary artery disease. Patient had her surgery done earlier today electively by , patient was evaluated in the ICU while on mechanical ventilation. She is presently sedated, on Precedex, but arousable, and she is on assist control rate of 16, tidal volume is 400, FiO2 50% and PEEP of 5. ABG showed a pO2 of 102 pCO2 of 40 pH of 7.38. Chest x-ray is basically unremarkable. Hence I would likely proceed to weaning as per protocol, patient would likely be weaned and extubated shortly. Patient is not requiring any pressors, she is only on insulin drip at 3.5 units per hour, she is also on Precedex which is being tapered down and to be discontinued. Patient was reevaluated today on 03/18/2021, I saw the patient on consultation yesterday, and shortly after my evaluation, patient was extubated and tolerated the extubation well. She is now doing well, she is on 5 L nasal cannula, sitting at a bedside chair, she is on Klonopin, 2 mg/h, and no other drips. Patient has blood pressure of 147/47, cardiac output is 4.5 cardiac index is 2.3 CVP is 8 pulmonary pressure is 25/11. Continues to have right-sided chest tube drained 1 80 mL overnight, left-sided chest tube drained 3 20 mL overnight, and mediastinal chest tube drained 400 mL overnight. Chest x-ray showed minimal bibasilar atelectasis, no evidence of congestive heart failure. Overall the pat ient is doing great, she is not requiring any pressors, not requiring any inotropes. Again the patient is postoperative day #1, status post ascending aortic aneurysm repair. Objective - Vital Signs Vital signs: Vital Signs Temp 98.9 F 03/18/21 12:00 Pulse 73 03/18/21 12:35 Resp 18 03/18/21 12:35 BP 108/57 03/18/21 12:00 Pulse Ox 89 L 03/18/21 12:00 Intake & Output 03/17/21 03/18/21 03/18/21 18:59 06:59 18:59 Intake Total 738.553 3376.677 556.574 Output Total 5285 1809 440 Balance -4778.813 185.677 116.574 Weight 88.5 kg Intake: IV 477 1158 534 ACETAMINOPHEN IV (For NPO 100 ) 1,000 mg In Empty Bag 1 bag @ 400 mls/hr IVPB Q6HR RASHID Rx#:[id number] CO/CI 130 350 180 Kefzol 50 Pressure Bag 45 108 54 Sodium Chloride 0.9% 1, 250 550 300 000 ml @ 20 mls/hr IV . Q24H RASHID Rx#:[id number] Intake, IV Titration 29.187 86.677 22.574 Amount Clevidipine Butyrate 25 2.767 39.001 mg In Empty Bag 1 bag @ 1 MG/HR 2 mls/hr IV .Q24H RASHID Rx#:[id number] Dexmedetomidine/0.9% NaCl 5.468 11.88 (Pmx) 400 mcg In Empty Bag 1 bag @ 0.2 MCG/KG/HR 4.05 mls/hr IV .Q24H RASHID Rx#:[id number] Insulin Regular 100 unit 2.525 35.796 22.574 In Sodium Chloride 0.9% 100 ml @ Per Protocol IV .Q0M RASHID Rx#:[id number] propofoL 1,000 mg In 18.427 Empty Bag 1 bag @ Titrate IV .Q0M RASHID Rx#: [id number] Oral 750 Output: Chest Tube Drainage 460 329 150 Left Pleural 300 79 0 Mediastinal x2 70 160 100 Right Pleural 90 90 50 Urine 1325 1480 290 Estimated Blood Loss 3500 Other: Voiding Method Indwelling Catheter Indwelling Catheter Indwelling Catheter ABP, PAP, CO, CI - Last Documented Arterial Blood Pressure 133/42 Pulmonary Artery Pressure 28/12 Cardiac Output 4.5 Cardiac Index 2.3 - Exam CONSTITUTIONAL: Revealed a 65-year-old female in no distress. RESPIRATORY: Symmetrical chest expansion, diminished breath sounds at the bases no rhonchi and no wheezes. CARDIOVASCULAR: Normal S1 and S2, no S3 gallop. GASTROINTESTINAL: Soft nontender no megaly no rebound NEUROLOGIC: Alert oriented 3 no gross deficits. MUSKULOSKELETAL: No deformity, no limitation in range of motion PSYCHIATRIC: Normal mood affect and normal mental status examination. INVASIVE LINES AND TUBES: Mediastinal/left/right pleural chest tubes present and connected to wall suction, no air leaks present. Drainage as noted earlier. - Labs CBC & Chem 7: 03/18/21 04:08 03/18/21 04:08 Labs: Abnormal Lab Results - Last 24 Hours (Table) 03/11/21 03/17/21 03/17/21 Range/Units 10:30 07:30 13:41 RBC (3.80-5.40) m/uL Hgb (11.4-16.0) gm/dL Hct (34.0-46.0) % Plt Count (150-450) k/uL Neutrophils # (1.3-7.7) k/uL Lymphocytes # (1.0-4.8) k/uL PT (9.0-12.0) sec INR (<1.2) APTT (22.0-30.0) sec ABG pH 7.34 L 7.32 L (7.35-7.45) ABG pCO2 47 H (35-45) mmHg ABG pO2 133 H 148 H (83-108) mmHg ABG Total CO2 27 H (19-24) mmol/L ABG O2 Saturation 98.9 H 99.2 H (94-97) % ABG Ionized Calcium 3.9 L (4.5-5.3) mg/dL ABG Glucose 150 H (75-99) mg/dL ABG Lactic Acid 2.1 H (0.5-1.6) mmol/L Sodium (137-145) mmol/L Potassium (3.5-5.1) mmol/L Chloride (98-107) mmol/L BUN (7-17) mg/dL Creatinine (0.52-1.04) mg/dL Glucose (74-99) mg/dL POC Glucose (mg/dL) (75-99) mg/dL Calcium (8.4-10.2) mg/dL Ionized Calcium Ziggy (4.5-5.3) mg/dL Magnesium (1.6-2.3) mg/dL AST (14-36) U/L Alkaline Phosphatase (38-126) U/L Total Protein (6.3-8.2) g/dL Albumin (3.5-5.0) g/dL Arterial Blood Glucose 150 H (75-99) mg/dL Crossmatch See Detail 03/17/21 03/17/21 03/17/21 Range/Units 14:40 14:40 14:40 RBC 3.55 L (3.80-5.40) m/uL Hgb 10.6 L D (11.4-16.0) gm/dL Hct 31.5 L (34.0-46.0) % Plt Count 82 L D (150-450) k/uL Neutrophils # (1.3-7.7) k/uL Lymphocytes # (1.0-4.8) k/uL PT 12.7 H (9.0-12.0) sec INR 1.2 H (<1.2) APTT 64.7 H (22.0-30.0) sec ABG pH (7.35-7.45) ABG pCO2 (35-45) mmHg ABG pO2 (83-108) mmHg ABG Total CO2 (19-24) mmol/L ABG O2 Saturation (94-97) % ABG Ionized Calcium (4.5-5.3) mg/dL ABG Glucose (75-99) mg/dL ABG Lactic Acid (0.5-1.6) mmol/L Sodium (137-145) mmol/L Potassium (3.5-5.1) mmol/L Chloride 109 H (98-107) mmol/L BUN (7-17) mg/dL Creatinine (0.52-1.04) mg/dL Glucose 144 H (74-99) mg/dL POC Glucose (mg/dL) (75-99) mg/dL Calcium 6.7 L (8.4-10.2) mg/dL Ionized Calcium Ziggy 4.4 L (4.5-5.3) mg/dL Magnesium 2.4 H (1.6-2.3) mg/dL AST 71 H (14-36) U/L Alkaline Phosphatase 20 L (38-126) U/L Total Protein 4.3 L (6.3-8.2) g/dL Albumin 2.6 L (3.5-5.0) g/dL Arterial Blood Glucose (75-99) mg/dL Crossmatch 03/17/21 03/17/21 03/17/21 Range/Units 14:45 15:04 16:05 RBC (3.80-5.40) m/uL Hgb (11.4-16.0) gm/dL Hct (34.0-46.0) % Plt Count (150-450) k/uL Neutrophils # (1.3-7.7) k/uL Lymphocytes # (1.0-4.8) k/uL PT (9.0-12.0) sec INR (<1.2) APTT (22.0-30.0) sec ABG pH (7.35-7.45) ABG pCO2 (35-45) mmHg ABG pO2 (83-108) mmHg ABG Total CO2 25 H (19-24) mmol/L ABG O2 Saturation 98.1 H (94-97) % ABG Ionized Calcium (4.5-5.3) mg/dL ABG Glucose (75-99) mg/dL ABG Lactic Acid (0.5-1.6) mmol/L Sodium (137-145) mmol/L Potassium (3.5-5.1) mmol/L Chloride (98-107) mmol/L BUN (7-17) mg/dL Creatinine (0.52-1.04) mg/dL Glucose (74-99) mg/dL POC Glucose (mg/dL) 146 H 178 H (75-99) mg/dL Calcium (8.4-10.2) mg/dL Ionized Calcium Ziggy (4.5-5.3) mg/dL Magnesium (1.6-2.3) mg/dL AST (14-36) U/L Alkaline Phosphatase (38-126) U/L Total Protein (6.3-8.2) g/dL Albumin (3.5-5.0) g/dL Arterial Blood Glucose (75-99) mg/dL Crossmatch 03/17/21 03/17/21 03/17/21 Range/Units 17:40 17:40 17:55 RBC 3.73 L (3.80-5.40) m/uL Hgb 11.0 L (11.4-16.0) gm/dL Hct 33.7 L (34.0-46.0) % Plt Count 102 L (150-450) k/uL Neutrophils # 8.8 H (1.3-7.7) k/uL Lymphocytes # (1.0-4.8) k/uL PT (9.0-12.0) sec INR (<1.2) APTT (22.0-30.0) sec ABG pH (7.35-7.45) ABG pCO2 (35-45) mmHg ABG pO2 81 L (83-108) mmHg ABG Total CO2 (19-24) mmol/L ABG O2 Saturation (94-97) % ABG Ionized Calcium (4.5-5.3) mg/dL ABG Glucose (75-99) mg/dL ABG Lactic Acid (0.5-1.6) mmol/L Sodium (137-145) mmol/L Potassium (3.5-5.1) mmol/L Chloride (98-107) mmol/L BUN (7-17) mg/dL Creatinine (0.52-1.04) mg/dL Glucose (74-99) mg/dL POC Glucose (mg/dL) 169 H (75-99) mg/dL Calcium (8.4-10.2) mg/dL Ionized Calcium Ziggy (4.5-5.3) mg/dL Magnesium (1.6-2.3) mg/dL AST (14-36) U/L Alkaline Phosphatase (38-126) U/L Total Protein (6.3-8.2) g/dL Albumin (3.5-5.0) g/dL Arterial Blood Glucose (75-99) mg/dL Crossmatch 03/17/21 03/17/21 03/17/21 Range/Units 19:01 19:59 20:00 RBC 3.18 L (3.80-5.40) m/uL Hgb 9.2 L D (11.4-16.0) gm/dL Hct 28.0 L (34.0-46.0) % Plt Count 76 L (150-450) k/uL Neutrophils # (1.3-7.7) k/uL Lymphocytes # 0.8 L (1.0-4.8) k/uL PT (9.0-12.0) sec INR (<1.2) APTT (22.0-30.0) sec ABG pH (7.35-7.45) ABG pCO2 (35-45) mmHg ABG pO2 (83-108) mmHg ABG Total CO2 (19-24) mmol/L ABG O2 Saturation (94-97) % ABG Ionized Calcium (4.5-5.3) mg/dL ABG Glucose (75-99) mg/dL ABG Lactic Acid (0.5-1.6) mmol/L Sodium (137-145) mmol/L Potassium (3.5-5.1) mmol/L Chloride (98-107) mmol/L BUN (7-17) mg/dL Creatinine (0.52-1.04) mg/dL Glucose (74-99) mg/dL POC Glucose (mg/dL) 152 H 144 H (75-99) mg/dL Calcium (8.4-10.2) mg/dL Ionized Calcium Ziggy (4.5-5.3) mg/dL Magnesium (1.6-2.3) mg/dL AST (14-36) U/L Alkaline Phosphatase (38-126) U/L Total Protein (6.3-8.2) g/dL Albumin (3.5-5.0) g/dL Arterial Blood Glucose (75-99) mg/dL Crossmatch 03/17/21 03/17/21 03/17/21 Range/Units 20:57 21:57 23:10 RBC (3.80-5.40) m/uL Hgb (11.4-16.0) gm/dL Hct (34.0-46.0) % Plt Count (150-450) k/uL Neutrophils # (1.3-7.7) k/uL Lymphocytes # (1.0-4.8) k/uL PT (9.0-12.0) sec INR (<1.2) APTT (22.0-30.0) sec ABG pH (7.35-7.45) ABG pCO2 (35-45) mmHg ABG pO2 (83-108) mmHg ABG Total CO2 (19-24) mmol/L ABG O2 Saturation (94-97) % ABG Ionized Calcium (4.5-5.3) mg/dL ABG Glucose (75-99) mg/dL ABG Lactic Acid (0.5-1.6) mmol/L Sodium (137-145) mmol/L Potassium (3.5-5.1) mmol/L Chloride (98-107) mmol/L BUN (7-17) mg/dL Creatinine (0.52-1.04) mg/dL Glucose (74-99) mg/dL POC Glucose (mg/dL) 137 H 132 H 136 H (75-99) mg/dL Calcium (8.4-10.2) mg/dL Ionized Calcium Ziggy (4.5-5.3) mg/dL Magnesium (1.6-2.3) mg/dL AST (14-36) U/L Alkaline Phosphatase (38-126) U/L Total Protein (6.3-8.2) g/dL Albumin (3.5-5.0) g/dL Arterial Blood Glucose (75-99) mg/dL Crossmatch 03/18/21 03/18/21 03/18/21 Range/Units 00:07 01:04 02:10 RBC (3.80-5.40) m/uL Hgb (11.4-16.0) gm/dL Hct (34.0-46.0) % Plt Count (150-450) k/uL Neutrophils # (1.3-7.7) k/uL Lymphocytes # (1.0-4.8) k/uL PT (9.0-12.0) sec INR (<1.2) APTT (22.0-30.0) sec ABG pH (7.35-7.45) ABG pCO2 (35-45) mmHg ABG pO2 (83-108) mmHg ABG Total CO2 (19-24) mmol/L ABG O2 Saturation (94-97) % ABG Ionized Calcium (4.5-5.3) mg/dL ABG Glucose (75-99) mg/dL ABG Lactic Acid (0.5-1.6) mmol/L Sodium (137-145) mmol/L Potassium (3.5-5.1) mmol/L Chloride (98-107) mmol/L BUN (7-17) mg/dL Creatinine (0.52-1.04) mg/dL Glucose (74-99) mg/dL POC Glucose (mg/dL) 137 H 137 H 128 H (75-99) mg/dL Calcium (8.4-10.2) mg/dL Ionized Calcium Ziggy (4.5-5.3) mg/dL Magnesium (1.6-2.3) mg/dL AST (14-36) U/L Alkaline Phosphatase (38-126) U/L Total Protein (6.3-8.2) g/dL Albumin (3.5-5.0) g/dL Arterial Blood Glucose (75-99) mg/dL Crossmatch 03/18/21 03/18/21 03/18/21 Range/Units 02:59 04:08 04:08 RBC 3.26 L (3.80-5.40) m/uL Hgb 9.9 L (11.4-16.0) gm/dL Hct 29.3 L (34.0-46.0) % Plt Count 83 L (150-450) k/uL Neutrophils # (1.3-7.7) k/uL Lymphocytes # 0.7 L (1.0-4.8) k/uL PT (9.0-12.0) sec INR (<1.2) APTT (22.0-30.0) sec ABG pH (7.35-7.45) ABG pCO2 (35-45) mmHg ABG pO2 (83-108) mmHg ABG Total CO2 (19-24) mmol/L ABG O2 Saturation (94-97) % ABG Ionized Calcium (4.5-5.3) mg/dL ABG Glucose (75-99) mg/dL ABG Lactic Acid (0.5-1.6) mmol/L Sodium 136 L (137-145) mmol/L Potassium 3.0 L (3.5-5.1) mmol/L Chloride (98-107) mmol/L BUN 6 L (7-17) mg/dL Creatinine 0.50 L (0.52-1.04) mg/dL Glucose 115 H (74-99) mg/dL POC Glucose (mg/dL) 126 H (75-99) mg/dL Calcium 7.5 L (8.4-10.2) mg/dL Ionized Calcium Ziggy (4.5-5.3) mg/dL Magnesium (1.6-2.3) mg/dL AST 62 H (14-36) U/L Alkaline Phosphatase 30 L (38-126) U/L Total Protein 5.2 L (6.3-8.2) g/dL Albumin (3.5-5.0) g/dL Arterial Blood Glucose (75-99) mg/dL Crossmatch 03/18/21 03/18/21 03/18/21 Range/Units 04:08 05:14 06:01 RBC (3.80-5.40) m/uL Hgb (11.4-16.0) gm/dL Hct (34.0-46.0) % Plt Count (150-450) k/uL Neutrophils # (1.3-7.7) k/uL Lymphocytes # (1.0-4.8) k/uL PT (9.0-12.0) sec INR (<1.2) APTT (22.0-30.0) sec ABG pH (7.35-7.45) ABG pCO2 (35-45) mmHg ABG pO2 (83-108) mmHg ABG Total CO2 (19-24) mmol/L ABG O2 Saturation (94-97) % ABG Ionized Calcium (4.5-5.3) mg/dL ABG Glucose (75-99) mg/dL ABG Lactic Acid (0.5-1.6) mmol/L Sodium (137-145) mmol/L Potassium (3.5-5.1) mmol/L Chloride (98-107) mmol/L BUN (7-17) mg/dL Creatinine (0.52-1.04) mg/dL Glucose (74-99) mg/dL POC Glucose (mg/dL) 119 H 115 H 122 H (75-99) mg/dL Calcium (8.4-10.2) mg/dL Ionized Calcium Ziggy (4.5-5.3) mg/dL Magnesium (1.6-2.3) mg/dL AST (14-36) U/L Alkaline Phosphatase (38-126) U/L Total Protein (6.3-8.2) g/dL Albumin (3.5-5.0) g/dL Arterial Blood Glucose (75-99) mg/dL Crossmatch 03/18/21 03/18/21 03/18/21 Range/Units 07:05 07:48 09:10 RBC (3.80-5.40) m/uL Hgb (11.4-16.0) gm/dL Hct (34.0-46.0) % Plt Count (150-450) k/uL Neutrophils # (1.3-7.7) k/uL Lymphocytes # (1.0-4.8) k/uL PT (9.0-12.0) sec INR (<1.2) APTT (22.0-30.0) sec ABG pH (7.35-7.45) ABG pCO2 (35-45) mmHg ABG pO2 (83-108) mmHg ABG Total CO2 (19-24) mmol/L ABG O2 Saturation (94-97) % ABG Ionized Calcium (4.5-5.3) mg/dL ABG Glucose (75-99) mg/dL ABG Lactic Acid (0.5-1.6) mmol/L Sodium (137-145) mmol/L Potassium (3.5-5.1) mmol/L Chloride (98-107) mmol/L BUN (7-17) mg/dL Creatinine (0.52-1.04) mg/dL Glucose (74-99) mg/dL POC Glucose (mg/dL) 114 H 122 H 144 H (75-99) mg/dL Calcium (8.4-10.2) mg/dL Ionized Calcium Ziggy (4.5-5.3) mg/dL Magnesium (1.6-2.3) mg/dL AST (14-36) U/L Alkaline Phosphatase (38-126) U/L Total Protein (6.3-8.2) g/dL Albumin (3.5-5.0) g/dL Arterial Blood Glucose (75-99) mg/dL Crossmatch 03/18/21 Range/Units 12:47 RBC (3.80-5.40) m/uL Hgb (11.4-16.0) gm/dL Hct (34.0-46.0) % Plt Count (150-450) k/uL Neutrophils # (1.3-7.7) k/uL Lymphocytes # (1.0-4.8) k/uL PT (9.0-12.0) sec INR (<1.2) APTT (22.0-30.0) sec ABG pH (7.35-7.45) ABG pCO2 (35-45) mmHg ABG pO2 (83-108) mmHg ABG Total CO2 (19-24) mmol/L ABG O2 Saturation (94-97) % ABG Ionized Calcium (4.5-5.3) mg/dL ABG Glucose (75-99) mg/dL ABG Lactic Acid (0.5-1.6) mmol/L Sodium (137-145) mmol/L Potassium (3.5-5.1) mmol/L Chloride (98-107) mmol/L BUN (7-17) mg/dL Creatinine (0.52-1.04) mg/dL Glucose (74-99) mg/dL POC Glucose (mg/dL) 126 H (75-99) mg/dL Calcium (8.4-10.2) mg/dL Ionized Calcium Ziggy (4.5-5.3) mg/dL Magnesium (1.6-2.3) mg/dL AST (14-36) U/L Alkaline Phosphatase (38-126) U/L Total Protein (6.3-8.2) g/dL Albumin (3.5-5.0) g/dL Arterial Blood Glucose (75-99) mg/dL Crossmatch Assessment and Plan Assessment: Impression: Status post ascending aortic aneurysm repair, postoperative day #1 History of hypertension. Dyslipidemia Ex-smoker, mild COPD, FEV1 of 67%, History of breast cancer and previous right radical mastectomy Family history of premature coronary artery disease. Postoperative acute blood loss anemia, expected. Recommendation: Continue cardiac meds including Plavix aspirin and beta blockers continue incentive spirometer continue GI prophylaxis Monitor daily labs and daily x-rays of the chest. Discontinue unnecessary catheters and lines. Early ambulation. Chest x-ray was reviewed, reassured. We'll continue to follow. Time with Patient: Less than 30
--- NOTE | 2021-03-18 13:49 | P.CRDCN ---
History of Present Illness History of present illness: this is a 65-year-old female with a past medical history of hypertension, dyslipidemia, ascending thoracic aortic aneurysm, former tobacco dependence, COPD, breast cancer status post radical right mastectomy, paroxysmal vertigo, and family history of coronary artery disease. She falls in the office with Dr. Hernandez. recently as part of patient's smoking history she underwent a low dose CT chest revealed thoracic aortic aneursym measuring up to 5.3 cm. She is admitted to the hospital for elective repair. Patient was underwent supra coronary ascending aortic replacement with 32 mm gelweave graft, closure of PFO, exclusion of left atrial appendage on 03/17/2021. The patient was seen and examined this morning, she is POD #1. She was sitting up in the recliner in no acute distress. She states she feels slightly uncomfortable with all the movement in the hospital, but she states she is getting used to it. Her [place] catheter was recently removed. She denies any shortness of breath. She has some post operative chest pain. She was extubated last night, currently on 6L high flow nasal cannnula. She is using her incentive spirometry, achieving 500 mL. Remains on 6 LPM high flow nasal cannula. Telemetry reviewed, maintaining sinus mechanism HR 70-80s. Chest xray mild cardiomegaly, low lung volumnes with patchy bibasilar atelectasis. Laboratory reviewed, WBC 8.9, hemoglobin 9.9, platelets 83, sodium 136, potassium 3.0, BUN 6, serum creatinine 2.5, magnesium 2.0. she is currently maintained on aspirin 81 mg daily, atorvastatin 40 mg daily, Plavix 75 mg daily, losartan 25 mg daily metoprolol titrate 25 mg twice a day. Cleviprex has been stopped. REVIEW OF SYSTEMS At the time of my exam: CONSTITUTIONAL: Denies fever or chills. CARDIOVASCULAR: +incisional chest pain. Denies chest pain, shortness of breath, orthopnea, PND or palpitations. RESPIRATORY: Denies cough. GASTROINTESTINAL: Denies abdominal pain, diarrhea, constipation, nausea or vomiting. MUSCULOSKELETAL: Denies myalgias. NEUROLOGIC: Denies numbness, tingling, headacbe or weakness. ENDOCRINE: Denies fatigue, weight change, polydipsia or polyurina. GENITOURINARY: Denies burning, hematuria or urgency with micturation. HEMATOLOGIC: Denies history of anemia or bleeding. PHYSICAL EXAMINATION blood pressure 133/42, heart rate 73, afebrile, on 6L high flow nasal cannula CONSTITUTIONAL: No apparent distress. HEENT: Head is normocephalic. Pupils are equal, round. Sclerae anicteric. Mucous membranes of the mouth are moist. No JVD. No carotid bruit. CHEST EXAMINATION: Lungs are diminished to auscultation. Some chest wall tenderness to deep breathing, incisional pain HEART EXAMINATION: Regular rate and rhythm. S1, S2 heard. No murmurs, gallops or rub. ABDOMEN: Soft, nontender. Positive bowel sounds. : [place] present with yellow urine EXTREMITIES: 2+ peripheral pulses, no lower extremity edema and no calf tenderness. NEUROLOGIC EXAMINATION: Patient is awake, alert and oriented x3. LINES/DRAINS: Right radial arterial line, Chest tubes present ASSESSMENT Ascending aortic aneurysm, status post supra coronary ascending aortic replacement Hypertension COPD Dyslipidemia History of breast cancer Family history of coronary artery disease Hypokalemia PLAN -Continue aspirin, statin, Plavix, metoprolol tartrate and losartan -Increase activity as tolerated -Wean O2 as tolerated -Replace potassium per protocol -Encourage incentive spirometer -Post operative management per CT surgery -We will continue to follow Nurse Practitioner note has been reviewed, I agree with a documented findings and plan of care. Patient was seen and examined. Past Medical History Past Medical History: Cancer, Hyperlipidemia, Hypertension, Osteoarthritis (OA) Additional Past Medical History / Comment(s): aortic aneurysm since 2018, getting larger, recent CT scan, emphysema, hx. breast cancer 20 yrs. ago, paroxysmal vertigo History of Any Multi-Drug Resistant Organisms: None Reported Past Surgical History: Breast Surgery, Heart Catheterization Additional Past Surgical History / Comment(s): right radical mastectomy 1990, right oophorectomy, cyst removed from left ovary, D & C Past Anesthesia/Blood Transfusion Reactions: No Reported Reaction Smoking Status: Former smoker - Past Family History Father Family Medical History: Coronary Artery Disease (CAD) Medications and Allergies Home Medications Medication Instructions Recorded Confirmed Type Rosuvastatin Calcium [Crestor] 2.5 mg PO HS 04/15/18 03/17/21 History Ascorbic Acid [Vitamin C] 1,000 mg PO DAILY 02/20/21 03/17/21 History Ipratropium [place] 0.06%Nasal 2 spray EA NOSTRIL BID PRN 02/20/21 03/17/21 History [Atrovent Nasal 0.06%] Metoprolol Succinate (ER) [Toprol 25 mg PO HS 02/20/21 03/17/21 History XL] Zinc 25 mg PO Q2D 02/20/21 03/17/21 History Albuterol Inhaler [Ventolin Hfa 2 puff INHALATION BID 03/11/21 03/17/21 History Inhaler] Cholecalciferol [Vitamin D3 (25 25 mcg PO DAILY 03/11/21 03/17/21 History Mcg = 1000 Iu)] Fish Oil/Dha/Epa [Fish Oil 1,200 1 each PO DAILY 03/11/21 03/17/21 History mg Fish Oil] Glucos Sul 2Kcl/MSM/Chond/C/Mn 1 each PO DAILY 03/11/21 03/17/21 History [Glucosamine Chondroitin Cap] [place]-3 Fatty Acids [[place]-3] 600 mg PO DAILY 03/11/21 03/17/21 History Allergies Allergy/AdvReac Type Severity Reaction Status Date / Time codeine AdvReac nausea, Verified 03/17/21 06:22 felt "out of it" Physical Exam Vitals: Vital Signs Temp Pulse Resp BP Pulse Ox 03/18/21 09:00 79 22 111/52 86 L 03/18/21 08:23 78 18 03/18/21 08:07 74 18 03/18/21 08:00 97.9 F 76 18 108/51 91 L 03/18/21 07:00 73 16 109/48 97 03/18/21 06:00 73 15 105/51 92 L 03/18/21 05:00 72 18 104/50 93 L 03/18/21 04:00 72 18 110/45 93 L 03/18/21 03:00 75 14 101/51 92 L 03/18/21 02:00 73 18 107/51 92 L 03/18/21 01:00 75 22 107/60 90 L 03/18/21 00:00 76 22 104/47 92 L 03/17/21 23:30 75 19 92 L 03/17/21 23:00 78 19 109/58 94 L 03/17/21 22:30 79 19 92 L 03/17/21 22:00 77 15 97/52 94 L 03/17/21 21:42 74 03/17/21 21:34 71 03/17/21 21:30 72 16 93 L 03/17/21 21:00 70 19 85/39 94 L 03/17/21 20:30 68 20 90 L 03/17/21 20:00 66 19 80/35 95 03/17/21 19:30 64 16 99 03/17/21 19:00 60 16 82/46 96 03/17/21 18:45 61 17 96 03/17/21 18:30 61 17 94 L 03/17/21 18:15 64 19 95 03/17/21 18:00 62 18 95/53 97 03/17/21 17:45 71 28 H 97 03/17/21 17:30 73 13 98 03/17/21 17:15 79 21 87 L 03/17/21 17:00 80 14 113/68 82 L 03/17/21 16:45 70 23 99 03/17/21 16:30 69 23 100 03/17/21 16:15 70 23 98 03/17/21 16:00 97.7 F 69 23 100/58 99 03/17/21 15:45 69 23 100 03/17/21 15:30 69 23 100 03/17/21 15:15 80 20 100 03/17/21 15:00 70 17 94/52 100 03/17/21 14:45 64 20 99 03/17/21 14:30 80 28 H 100 03/17/21 14:29 100 Intake and Output 03/17/21 03/18/21 03/18/21 22:59 06:59 14:59 Intake Total 648.502 0044.322 275.787 Output Total 910 1479 250 Balance -175.458 146.322 25.787 Intake: IV 682 812 267 ACETAMINOPHEN IV (For NPO 100 ) 1,000 mg In Empty Bag 1 bag @ 400 mls/hr IVPB Q6HR RASHID Rx#:[id number] CO/CI 210 240 90 Kefzol 50 Pressure Bag 72 72 27 Sodium Chloride 0.9% 1, 400 350 150 000 ml @ 20 mls/hr IV . Q24H RASHID Rx#:[id number] Intake, IV Titration 52.542 63.322 8.787 Amount Clevidipine Butyrate 25 4.134 37.634 mg In Empty Bag 1 bag @ 1 MG/HR 2 mls/hr IV .Q24H RASHID Rx#:[id number] Dexmedetomidine/0.9% NaCl 17.348 (Pmx) 400 mcg In Empty Bag 1 bag @ 0.2 MCG/KG/HR 4.05 mls/hr IV .Q24H RASHID Rx#:[id number] Insulin Regular 100 unit 12.633 25.688 8.787 In Sodium Chloride 0.9% 100 ml @ Per Protocol IV .Q0M RASHID Rx#:[id number] propofoL 1,000 mg In 18.427 Empty Bag 1 bag @ Titrate IV .Q0M RASHID Rx#: [id number] Oral 750 Output: Chest Tube Drainage 435 204 90 Left Pleural 199 60 0 Mediastinal x2 150 80 60 Right Pleural 86 64 30 Urine 475 1275 160 Other: Voiding Method Indwelling Catheter Indwelling Catheter Indwelling Catheter Weight 88.5 kg ABP, PAP, CO, CI - Last 8 Hours Arterial Blood Pressure 159/48 Arterial Blood Pressure 143/49 Arterial Blood Pressure 139/48 Arterial Blood Pressure 125/45 Arterial Blood Pressure 144/48 Arterial Blood Pressure 141/48 Arterial Blood Pressure 131/44 Pulmonary Artery Pressure 26/11 Pulmonary Artery Pressure 28/12 Pulmonary Artery Pressure 21/9 Pulmonary Artery Pressure 24/11 Pulmonary Artery Pressure 26/14 Pulmonary Artery Pressure 28/14 Pulmonary Artery Pressure 24/12 Cardiac Output 4.5 Cardiac Output 4.5 Cardiac Output 4.5 Cardiac Output 5.3 Cardiac Output 5.1 Cardiac Output 4.3 Cardiac Output 5.3 Cardiac Index 2.3 Cardiac Index 2.3 Cardiac Index 2.3 Cardiac Index 2.7 Cardiac Index 2.6 Cardiac Index 2.2 Cardiac Index 2.7 Results 03/18/21 04:08 03/18/21 04:08 Cardiac Enzymes 03/17/21 03/18/21 Range/Units 14:40 04:08 AST 71 H 62 H (14-36) U/L Coagulation 03/17/21 Range/Units 14:40 PT 12.7 H (9.0-12.0) sec APTT 64.7 H (22.0-30.0) sec CBC 03/17/21 03/17/21 03/17/21 Range/Units 14:40 17:40 20:00 WBC 6.8 10.5 7.5 (3.8-10.6) k/uL RBC 3.55 L 3.73 L 3.18 L (3.80-5.40) m/uL Hgb 10.6 L D 11.0 L 9.2 L D (11.4-16.0) gm/dL Hct 31.5 L 33.7 L 28.0 L (34.0-46.0) % Plt Count 82 L D 102 L 76 L (150-450) k/uL 03/18/21 Range/Units 04:08 WBC 8.9 (3.8-10.6) k/uL RBC 3.26 L (3.80-5.40) m/uL Hgb 9.9 L (11.4-16.0) gm/dL Hct 29.3 L (34.0-46.0) % Plt Count 83 L (150-450) k/uL Comprehensive Metabolic Panel 03/17/21 03/18/21 Range/Units 14:40 04:08 Sodium 138 136 L (137-145) mmol/L Potassium 4.8 3.0 L (3.5-5.1) mmol/L Chloride 109 H 106 (98-107) mmol/L Carbon Dioxide 22 23 (22-30) mmol/L BUN 7 6 L (7-17) mg/dL Creatinine 0.58 0.50 L (0.52-1.04) mg/dL Glucose 144 H 115 H (74-99) mg/dL Calcium 6.7 L 7.5 L (8.4-10.2) mg/dL AST 71 H 62 H (14-36) U/L ALT 20 20 (4-34) U/L Alkaline Phosphatase 20 L 30 L (38-126) U/L Total Protein 4.3 L 5.2 L (6.3-8.2) g/dL Albumin 2.6 L 3.6 (3.5-5.0) g/dL Current Medications Generic Name Dose Route Start Last Admin Trade Name Freq PRN Reason Stop Dose Admin Acetaminophen 650 mg 03/18/21 06:00 Acetaminophen Tab 325 Mg Tab PO Q6HR PRN Mild Pain or Fever > 38.3 C Hydrocodone Bitart/Acetaminophen 2 each 03/18/21 01:39 Hydrocodone/Apap 5-325mg 1 Each Tab PO Q4HR PRN Severe Pain Hydrocodone Bitart/Acetaminophen 1 each 03/18/21 01:39 03/18/21 06:20 Hydrocodone/Apap 5-325mg 1 Each Tab PO 1 each Q4HR PRN Administration Moderate Pain Albuterol/Ipratropium 3 ml 03/17/21 14:16 Ipratropium-Albuterol 3 Ml Neb INHALATION RT-Q2H PRN Shortness Of Breath Or Wheezing Albuterol/Ipratropium 3 ml 03/17/21 20:00 03/18/21 08:07 Ipratropium-Albuterol 3 Ml Neb INHALATION 3 ml RT-QID RASHID Administration Ascorbic Acid 1,000 mg 03/18/21 09:00 03/18/21 08:52 Ascorbic Acid 500 Mg Tab PO 1,000 mg DAILY RASHID Administration Aspirin 81 mg 03/18/21 09:00 03/18/21 09:03 Aspirin 81 Mg PO 81 mg DAILY RASHID Administration Atorvastatin Calcium 40 mg 03/18/21 09:00 03/18/21 08:54 Atorvastatin 40 Mg Tab PO 40 mg DAILY RASHID Administration Benzocaine/Menthol 1 each 03/17/21 14:16 Benzocaine/Menthol Lozeng 1 Each Lozenge MUCOUS MEM Q2H PRN Sore Throat Bisacodyl 10 mg 03/18/21 09:00 Bisacodyl 10 Mg Supp RECTAL DAILY PRN Constipation Cholecalciferol 25 mcg 03/18/21 09:00 03/18/21 08:52 Cholecalciferol 25 Mcg (1000 Iu) Tablet PO 25 mcg DAILY RASHID Administration Clopidogrel Bisulfate 75 mg 03/18/21 09:00 03/18/21 08:52 Clopidogrel 75 Mg Tab PO 75 mg DAILY RASHID Administration Heparin Sodium (Porcine) 5,000 unit 03/17/21 16:00 03/18/21 08:54 Heparin Sodium,Porcine/Pf 5,000 Unit/0.5 Ml Syringe SQ 5,000 unit Q8HR RASHID Administration Clevidipine 25 mg/ IV Solution 50 mls @ 2 mls/hr 03/17/21 14:16 03/18/21 06:00 IV 0 mg/hr .Q24H RASHID 0 mls/hr Titration Protocol 1 MG/HR Amiodarone HCl 150 mg/ 103 mls @ 618 mls/hr 03/17/21 14:16 Dextrose/Water IV .Q10M PRN A.FIB/FLUTTER Protocol Amiodarone HCl 360 mg/ 207.2 mls @ 34.533 mls/hr 03/17/21 14:16 Dextrose/Water IV .Q6H PRN A.FIB/FLUTTER Protocol 1 MG/MIN Amiodarone HCl 450 mg/ 250 mls @ 16.667 mls/hr 03/17/21 14:16 Dextrose/Water IV .Q15H PRN A.FIB/FLUTTER Protocol 0.5 MG/MIN Albumin Human 250 ml/ IV 250 mls @ 250 mls/hr 03/17/21 14:16 03/17/21 17:48 Solution IVPB 03/19/21 14:17 250 mls/hr Q1HR PRN Administration For Volume Protocol Calcium Gluconate 2 gm/ Sodium 120 mls @ 100 mls/hr 03/17/21 14:16 Chloride IVPB 04/13/21 14:17 ONCE PRN Ionized Calcium less than 4.4 Sodium Chloride 1,000 mls @ 20 mls/hr 03/17/21 14:16 03/17/21 17:20 Saline 0.9% IV 50 mls/hr .Q24H RASHID Administration Insulin Human Regular 100 unit 101 mls @ 0 mls/hr 03/17/21 15:45 03/18/21 09:12 / Sodium Chloride IV 3.5 units/hr .Q0M RASHID 3.535 mls/hr Titration Protocol Per Protocol Losartan Potassium 25 mg 03/18/21 12:00 Losartan 25 Mg Tab PO DAILY@1200 RASHID Magnesium Hydroxide 2,400 mg 03/18/21 09:00 Magnesium Hydroxide 2,400 Mg/10 Ml Cup PO BID PRN Constipation Metoclopramide HCl 10 mg 03/17/21 14:16 Metoclopramide 5 Mg/Ml 2 Ml Vial IVP Q4H PRN Nausea And Vomiting Metoprolol Tartrate 12.5 mg 03/18/21 09:00 03/18/21 08:52 Metoprolol Tartrate 12.5 Mg Tab PO 12.5 mg BID RASHID Administration Miscellaneous Information 1 each 03/17/21 14:16 Potassium Replacement Protocol 1 Each Misc MISCELLANE DAILY PRN Per Protocol Protocol Miscellaneous Information 1 each 03/17/21 14:16 Magnesium Replacement Protocol 1 Each Misc MISCELLANE DAILY PRN Per Protocol Protocol Miscellaneous Information 1 each 03/17/21 14:16 Phosphorus Replacement Protoco 1 Each Misc MISCELLANE DAILY PRN Per Protocol Protocol Ondansetron HCl 4 mg 03/17/21 14:16 03/18/21 01:12 Ondansetron 4 Mg/2 Ml Vial IVP 4 mg Q6HR PRN Administration Nausea And Vomiting Pantoprazole Sodium 40 mg 03/19/21 07:30 Pantoprazole 40 Mg Tablet PO [id number] RASHID Senna/Docusate Sodium 2 each 03/18/21 21:00 Sennosides-Docusate Sodium 1 Each Tab PO HS RASHID Sodium Chloride 10 ml 03/17/21 21:00 03/18/21 08:56 Sodium Chloride 0.9% Flush 10 Ml Syringe IV 10 ml BID RASHID Administration Intake and Output 03/17/21 03/18/21 03/18/21 22:59 06:59 14:59 Intake Total 248.246 2261.322 275.787 Output Total 910 1479 250 Balance -175.458 146.322 25.787 Intake: IV 682 812 267 ACETAMINOPHEN IV (For NPO 100 ) 1,000 mg In Empty Bag 1 bag @ 400 mls/hr IVPB Q6HR RASHID Rx#:[id number] CO/CI 210 240 90 Kefzol 50 Pressure Bag 72 72 27 Sodium Chloride 0.9% 1, 400 350 150 000 ml @ 20 mls/hr IV . Q24H RASHID Rx#:[id number] Intake, IV Titration 52.542 63.322 8.787 Amount Clevidipine Butyrate 25 4.134 37.634 mg In Empty Bag 1 bag @ 1 MG/HR 2 mls/hr IV .Q24H RASHID Rx#:[id number] Dexmedetomidine/0.9% NaCl 17.348 (Pmx) 400 mcg In Empty Bag 1 bag @ 0.2 MCG/KG/HR 4.05 mls/hr IV .Q24H RASHID Rx#:[id number] Insulin Regular 100 unit 12.633 25.688 8.787 In Sodium Chloride 0.9% 100 ml @ Per Protocol IV .Q0M RASHID Rx#:[id number] propofoL 1,000 mg In 18.427 Empty Bag 1 bag @ Titrate IV .Q0M RASHID Rx#: [id number] Oral 750 Output: Chest Tube Drainage 435 204 90 Left Pleural 199 60 0 Mediastinal x2 150 80 60 Right Pleural 86 64 30 Urine 475 1275 160 Other: Voiding Method Indwelling Catheter Indwelling Catheter Indwelling Catheter Weight 88.5 kg 03/18/21 04:08 03/18/21 04:08
[2021-03-18] MEDS ORDERED: METOPROLOL TARTRATE 12.5 MG TAB PO STA (13:56)
[2021-03-18 13:57] LABS: Glucose,Whole Blood 124 mg/dL (75-99)
[2021-03-18] MEDS: LOSARTAN 25 MG TAB PO SCH (14:35)
[2021-03-18] MEDS: ACETAMINOPHEN TAB 325 MG TAB PO PRN (15:22)
[2021-03-18 15:28] LABS: Glucose,Whole Blood 104 mg/dL (75-99)
[2021-03-18 15:51] VITALS: BMI 28.0
[2021-03-18 17:13] LABS: Glucose,Whole Blood 130 mg/dL (75-99)
[2021-03-18] MEDS: MAGNESIUM SULFATE-D5W PMX 1 GM in DEXTROSE/WATER 1 100ML.BAG IVPB SCH ×2 (18:34→20:22)
[2021-03-18 18:46] LABS: Glucose,Whole Blood 141 mg/dL (75-99)
[2021-03-18 20:08] LABS: Glucose,Whole Blood 143 mg/dL (75-99)
[2021-03-18] MEDS: SENNOSIDES-DOCUSATE SODIUM 1 EACH TAB PO SCH (20:24)
[2021-03-18] MEDS: METOPROLOL TARTRATE 25 MG TAB PO SCH (20:25)
[2021-03-18 21:25] LABS: Glucose,Whole Blood 136 mg/dL (75-99)
[2021-03-18 21:48] LABS: African American GFR (CKD) >90 (>60 ml/min/1.73 sqM); Anion Gap 10 mmol/L; Blood Urea Nitrogen 9 mg/dL (7-17); Calcium 7.7 mg/dL (8.4-10.2); Carbon Dioxide 18 mmol/L (22-30); Chloride 103 mmol/L (98-107); Glucose 129 mg/dL (74-99); Non-African American GFR(CKD) >90 (>60 ml/min/1.73 sqM); Potassium 4.2 mmol/L (3.5-5.1); Sodium 131 mmol/L (137-145)
[2021-03-18 22:49] LABS: Glucose,Whole Blood 126 mg/dL (75-99)
[2021-03-19] MEDS: HEPARIN SODIUM,PORCINE/PF 5,000 UNIT/0.5 ML SYRINGE SQ SCH ×4 (00:23→23:30)
[2021-03-19 00:29] LABS: Glucose,Whole Blood 129 mg/dL (75-99)
[2021-03-19] MEDS: ACETAMINOPHEN TAB 325 MG TAB PO PRN (00:33)
[2021-03-19 02:17] LABS: Glucose,Whole Blood 124 mg/dL (75-99)
[2021-03-19 05:07] LABS: Glucose,Whole Blood 120 mg/dL (75-99)
[2021-03-19] MEDS: ONDANSETRON 4 MG/2 ML VIAL IVP PRN (05:23)
[2021-03-19 05:43] LABS: Basophils % (A) 0 %; Eosinophils % (A) 0 %; HCT 27.4 % (34.0-46.0); HGB 9.4 gm/dL (11.4-16.0); Lymphocytes # (A) 1.6 k/uL (1.0-4.8); Lymphocytes % (A) 12 %; MCH 30.1 pg (25.0-35.0); MCHC 34.2 g/dL (31.0-37.0); Mean Platelet Volume 9.6; Monocytes # (A) 0.5 k/uL (0-1.0); Monocytes % (A) 4 %; Neutrophils # (A) 10.7 k/uL (1.3-7.7); Neutrophils % (A) 82 %; Platelet Count 111 k/uL (150-450); RBC 3.11 m/uL (3.80-5.40); RDW 14.1 % (11.5-15.5); WBC 13.1 k/uL (3.8-10.6)
[2021-03-19] MEDS: HYDROcodone/APAP 5-325MG 1 EACH TAB PO PRN ×2 (05:47→17:09)
[2021-03-19 06:25] LABS: Ionized Calcium 4.6 mg/dL (4.5-5.3)
[2021-03-19 06:54] LABS: Glucose,Whole Blood 127 mg/dL (75-99)
[2021-03-19 07:36] LABS: ALT 16 U/L (4-34); AST 50 U/L (14-36); African American GFR (CKD) >90 (>60 ml/min/1.73 sqM); Albumin 3.1 g/dL (3.5-5.0); Alkaline Phosphatase 42 U/L (38-126); Anion Gap 7 mmol/L; Blood Urea Nitrogen 9 mg/dL (7-17); Calcium 8.1 mg/dL (8.4-10.2); Carbon Dioxide 19 mmol/L (22-30); Chloride 105 mmol/L (98-107); Glucose 112 mg/dL (74-99); Magnesium 2.7 mg/dL (1.6-2.3); Non-African American GFR(CKD) >90 (>60 ml/min/1.73 sqM); Potassium 4.7 mmol/L (3.5-5.1); Sodium 131 mmol/L (137-145); Total Bilirubin 1.3 mg/dL (0.2-1.3); Total Protein 5.1 g/dL (6.3-8.2)
[2021-03-19 08:10] LABS: Glucose,Whole Blood 123 mg/dL (75-99)
--- NOTE | 2021-03-19 08:42 | XR ---
EXAMINATION TYPE: XR chest 1V portable DATE OF EXAM: 03/19/2021 COMPARISON: 03/18/2021 INDICATION: Postop cardiac surgery TECHNIQUE: Single frontal view of the chest is obtained. FINDINGS: The heart size is enlarged. The pulmonary vasculature is normal. Small retrocardiac infiltrate is present. Correlate for atelectasis or pneumonia. Mediastinal chest tubes remain present. The [place] catheter is been removed. The sheath remains pr esent IMPRESSION: 1. Mild cardiomegaly. 2. Retrocardiac infiltrate. Follow-up is recommended
[2021-03-19] MEDS: IPRATROPIUM-ALBUTEROL 3 ML NEB INHALATION SCH ×4 (08:53→20:09)
--- NOTE | 2021-03-19 08:54 | P.PN ---
Subjective Progress Note Date: 03/19/21 Principal diagnosis: Ascending aortic aneurysm, large patent foramen ovale with a spontaneous left to right shunt. Previous medical history of hypertension, hyperlipidemia, previous tobacco dependence, mild COPD, ETOH use 2-7 drinks weekly, breast cancer status post radical right mastectomy, paroxysmal vertigo, and family history of premature coronary artery with father from [place] at 54 years old, vaccinated against Covid. POD #2 Supra coronary ascending aortic replacement with 32 mm gelweave graft, closure of PFO, exclusion of left atrial appendage with 35 mm Atriclup, introperative transesophageal echocardiogram and epi-aortic scanning Postoperative acute blood loss anemia and thrombocytopenia, expected after open heart surgery given hemodilution and cardiopulmonary bypass pump The patient was seen and examined this morning in the intensive care unit. She was sitting up in the recliner in no acute distress. She does complain of post surgical chest pain but states is better controlled today, denies shortness of breath. She remains in sinus rhythm, hemodynamically stable. Right internal jugular cordis, right radial arterial line, mediastinal/left/right pleural chest tubes remain. Urine output decreasing. Actively using incentive spirometry but only achieving 500 mL. Remains on 6 LPM high flow nasal cannula. Ambulated out to the hallway twice yesterday. Uneventful evening, states she actually got some sleep last night, no new concerns. Objective - Vital Signs Vital signs: Vital Signs Temp 98.9 F 03/19/21 08:00 Pulse 81 03/19/21 08:00 Resp 32 H 03/19/21 08:00 BP 118/54 03/18/21 20:00 Pulse Ox 91 L 03/19/21 08:00 Intake & Output 03/18/21 03/19/21 03/19/21 18:59 06:59 18:59 Intake Total 636.357 907.322 506 Output Total 1135 690 160 Balance -498.643 217.322 346 Weight 88.5 kg 90.974 kg Intake: IV 597 404 26 CO/CI 60 Magnesium Sulfate-D5w Pmx 100 1 gm In Dextrose/Water 1 100ml.bag @ 100 mls/hr IVPB Q1H RASHID Rx#: [id number] Pressure Bag 87 72 6 Sodium Chloride 0.9% 1, 450 232 20 000 ml @ 20 mls/hr IV . Q24H RASHID Rx#:[id number] Intake, IV Titration 39.357 23.322 Amount Insulin Regular 100 unit 39.357 23.322 In Sodium Chloride 0.9% 100 ml @ Per Protocol IV .Q0M COUNTS INCLUDE 234 BEDS AT THE [facility] Rx#:[id number] Oral 480 480 Output: Chest Tube Drainage 640 370 160 Left Pleural 150 190 60 Mediastinal x2 270 70 30 Right Pleural 220 110 70 Urine 495 320 Other: Voiding Method Indwelling Catheter Indwelling Catheter # Voids 0 ABP, PAP, CO, CI - Last Documented Arterial Blood Pressure 113/63 Pulmonary Artery Pressure 28/12 Cardiac Output 4.5 Cardiac Index 2.3 - Exam CONSTITUTIONAL: Appears comfortable, cooperative, no acute distress RESPIRATORY: Lungs sounds diminished bilaterally. Respirations even, nonlabor ed. Currently on 6 L high flow nasal cannula with oxygen saturation 90%. Able to achieve 500 mL on incentive spirometry. Weak cough. CARDIOVASCULAR: S1, S2 present. Regular rate and rhythm, sinus rhythm on telemetry. Sternum stable. Palpable peripheral pulses bilaterally. Trace generalized edema present. No calf pain or tenderness noted. Heart hugger in place with patient demonstrating appropriate use. Antiembolism stockings, SCDs present. GASTROINTESTINAL: Abdomen soft, nontender, nondistended. Hypoactive bowel sounds present 4 quadrants. Tolerating clear liquid diet. Positive belching, negative flatus GENITOURINARY: Palma present draining clear, yellow urine. Output overnight 20-35 mL per hour, 815 mL in the last 24 hours INTEGUMENTARY: Skin is warm and dry with evidence of good perfusion. Anterior chest incision well approximated and covered with dry intact dressing. NEUROLOGIC: Cranial nerves II through XII intact MUSKULOSKELETAL: Able to move all extremities, strength equal bilaterally, gait normal PSYCHIATRIC: Alert and oriented to person place and time, appropriate affect, intact judgment and insight INVASIVE LINES AND TUBES: Mediastinal/left/right pleural chest tubes present and connected to wall suction, no air leaks present. Mediastinal tube with 130 mL serosanguineous drainage overnight, 200 mL in the last 24 hours. Left pleural chest tube with 250 mL serosanguineous drainage overnight, 450 mL in the last 24 hours. Right pleural chest tube with 190 mL serosanguineous drainage overnight, 300 mL in the last 24 hours. A/V epicardial pacemaker wires present, grounded. Right internal jugular Cordis, right radial arterial line present. Last CVP 5. - Allied health notes Allied health notes reviewed: nursing - Labs CBC & Chem 7: 03/19/21 05:00 03/19/21 05:00 Labs: Abnormal Lab Results - Last 24 Hours (Table) 03/18/21 03/18/21 03/18/21 Range/Units 09:10 12:45 12:47 WBC (3.8-10.6) k/uL RBC (3.80-5.40) m/uL Hgb (11.4-16.0) gm/dL Hct (34.0-46.0) % Plt Count (150-450) k/uL Neutrophils # (1.3-7.7) k/uL Sodium (137-145) mmol/L Potassium 3.4 L (3.5-5.1) mmol/L Carbon Dioxide (22-30) mmol/L Glucose (74-99) mg/dL POC Glucose (mg/dL) 144 H 126 H (75-99) mg/dL Calcium (8.4-10.2) mg/dL Magnesium (1.6-2.3) mg/dL AST (14-36) U/L Total Protein (6.3-8.2) g/dL Albumin (3.5-5.0) g/dL 03/18/21 03/18/21 03/18/21 Range/Units 13:55 15:26 17:12 WBC (3.8-10.6) k/uL RBC (3.80-5.40) m/uL Hgb (11.4-16.0) gm/dL Hct (34.0-46.0) % Plt Count (150-450) k/uL Neutrophils # (1.3-7.7) k/uL Sodium (137-145) mmol/L Potassium (3.5-5.1) mmol/L Carbon Dioxide (22-30) mmol/L Glucose (74-99) mg/dL POC Glucose (mg/dL) 124 H 104 H 130 H (75-99) mg/dL Calcium (8.4-10.2) mg/dL Magnesium (1.6-2.3) mg/dL AST (14-36) U/L Total Protein (6.3-8.2) g/dL Albumin (3.5-5.0) g/dL 03/18/21 03/18/2121 Range/Units 18:44 20:06 21:20 WBC (3.8-10.6) k/uL RBC (3.80-5.40) m/uL Hgb (11.4-16.0) gm/dL Hct (34.0-46.0) % Plt Count (150-450) k/uL Neutrophils # (1.3-7.7) k/uL Sodium 131 L (137-145) mmol/L Potassium (3.5-5.1) mmol/L Carbon Dioxide 18 L (22-30) mmol/L Glucose 129 H (74-99) mg/dL POC Glucose (mg/dL) 141 H 143 H (75-99) mg/dL Calcium 7.7 L (8.4-10.2) mg/dL Magnesium (1.6-2.3) mg/dL AST (14-36) U/L Total Protein (6.3-8.2) g/dL Albumin (3.5-5.0) g/dL 03/18/21 03/18/21 03/19/21 Range/Units 21:24 22:48 00:28 WBC (3.8-10.6) k/uL RBC (3.80-5.40) m/uL Hgb (11.4-16.0) gm/dL Hct (34.0-46.0) % Plt Count (150-450) k/uL Neutrophils # (1.3-7.7) k/uL Sodium (137-145) mmol/L Potassium (3.5-5.1) mmol/L Carbon Dioxide (22-30) mmol/L Glucose (74-99) mg/dL POC Glucose (mg/dL) 136 H 126 H 129 H (75-99) mg/dL Calcium (8.4-10.2) mg/dL Magnesium (1.6-2.3) mg/dL AST (14-36) U/L Total Protein (6.3-8.2) g/dL Albumin (3.5-5.0) g/dL 03/19/21 03/19/21 03/19/21 Range/Units 02:16 05:00 05:00 WBC 13.1 H (3.8-10.6) k/uL RBC 3.11 L (3.80-5.40) m/uL Hgb 9.4 L (11.4-16.0) gm/dL Hct 27.4 L (34.0-46.0) % Plt Count 111 L (150-450) k/uL Neutrophils # 10.7 H (1.3-7.7) k/uL Sodium 131 L (137-145) mmol/L Potassium (3.5-5.1) mmol/L Carbon Dioxide 19 L (22-30) mmol/L Glucose 112 H (74-99) mg/dL POC Glucose (mg/dL) 124 H (75-99) mg/dL Calcium 8.1 L (8.4-10.2) mg/dL Magnesium 2.7 H (1.6-2.3) mg/dL AST 50 H (14-36) U/L Total Protein 5.1 L (6.3-8.2) g/dL Albumin 3.1 L (3.5-5.0) g/dL 03/19/21 03/19/21 03/19/21 Range/Units 05:06 06:52 08:08 WBC (3.8-10.6) k/uL RBC (3.80-5.40) m/uL Hgb (11.4-16.0) gm/dL Hct (34.0-46.0) % Plt Count (150-450) k/uL Neutrophils # (1.3-7.7) k/uL Sodium (137-145) mmol/L Potassium (3.5-5.1) mmol/L Carbon Dioxide (22-30) mmol/L Glucose (74-99) mg/dL POC Glucose (mg/dL) 120 H 127 H 123 H (75-99) mg/dL Calcium (8.4-10.2) mg/dL Magnesium (1.6-2.3) mg/dL AST (14-36) U/L Total Protein (6.3-8.2) g/dL Albumin (3.5-5.0) g/dL - Imaging and Cardiology Chest x-ray: report reviewed, image reviewed Assessment and Plan Assessment: 1. Ascending aortic aneurysm, status post supra coronary ascending aortic replacement 2. Large patent foramen ovale with spontaneous [id number] shunt, status post closure of PFO 3. Hypertension 4. Hyperlipidemia, treated, cholesterol 167, LDL 86, triglycerides 204 5. Previous tobacco dependence 6. Mild COPD with preoperative FEV1 67% of predicted and DLCO of 51% of predicted 7. ETOH use 2-7 drinks weekly 8. History of breast cancer status post radical right mastectomy 9. Paroxysmal vertigo 10. Family history of premature coronary artery with father from [place] at 54 years old 11. Vaccinated against Covid. 12. Postoperative acute blood loss anemia and thrombocytopenia, expected Plan: 1. Continue aspirin, statin, Plavix, beta silvestre therapy. Will increase beta silvestre therapy as tolerated. Continue Cozaar for afterload reduction 2. Wean O2 as tolerated. Encourage incentive spirometry 10 times every hour while awake. Bronchodilators per pulmonology 3. Increase activity, ambulate as tolerated. PT/OT/cardiac rehab consulted 4. GI/DVT prophylaxis 5. Will monitor daily labs and chest x-rays. Electrolyte replacement per protocol. Will give 20 mg IV push Lasix today 6. Pain control with current medication regimen 7. Insulin management per primary care service. Patient is not diabetic, recent hemoglobin A1c 6.2%, does need tight blood sugar control to promote sternal union and prevent infection 8. Will discontinue mediastinal chest tube 9. Keep pleural chest tubes for another 24 hours 10. Palma catheter discontinued this morning, may bladder scan and straight cath for greater than 300 mL residual 11. Strict accurate intake and output. Daily weights. Likely will discontinue Cordis this afternoon 12. Keep patient in ICU for 1 more day 13. More recommendations to follow as patient progresses Time with Patient: Greater than 30
[2021-03-19] MEDS ORDERED: FUROSEMIDE 10 MG/ML 2 ML VIAL IV ONE (09:00)
[2021-03-19] MEDS: CLOPIDOGREL 75 MG TAB PO SCH (09:07)
[2021-03-19] MEDS: ASCORBIC ACID 500 MG TAB PO SCH (09:07)
[2021-03-19] MEDS: ASPIRIN 81 MG PO SCH (09:07)
[2021-03-19] MEDS: PANTOPRAZOLE 40 MG TABLET PO SCH (09:07)
[2021-03-19] MEDS: METOPROLOL TARTRATE 25 MG TAB PO SCH ×2 (09:07→21:24)
[2021-03-19] MEDS: SODIUM CHLORIDE 0.9% 1,000 ML IV SCH (09:08)
[2021-03-19] MEDS: ATORVASTATIN 40 MG TAB PO SCH (09:08)
[2021-03-19] MEDS: CHOLECALCIFEROL 25 MCG (1000 IU) TABLET PO SCH (09:08)
--- NOTE | 2021-03-19 11:25 | P.PN ---
Subjective This is a 65-year-old female with a past medical history of hypertension, dyslipidemia, ascending thoracic aortic aneurysm, former tobacco dependence, COPD, breast cancer status post radical right mastectomy, paroxysmal vertigo, and family history of coronary artery disease. She falls in the office with Dr. Hernandez. recently as part of patient's smoking history she underwent a low dose CT chest revealed thoracic aortic aneursym measuring up to 5.3 cm. She is admitted to the hospital for elective repair. Patient was underwent supra coronary ascend ing aortic replacement with 32 mm gelweave graft, closure of PFO, exclusion of left atrial appendage on 03/17/2021. The patient was seen and examined this morning, she is POD #2. She was sitting up in the recliner in no acute distress. She states she is feeling better this morning compared to yesterday. She denies any shortness of breath. She has some post operative chest pain. She is using her incentive spirometry, achieving 500 mL. She had her holden and a chest tube removed today. Remains on 6 LPM high flow nasal cannula. Telemetry reviewed, maintaining sinus mechanism HR 70-80s. Laboratory reviewed, WBC 13.1, hemoglobin 9.4, platelets 111, sodium 131, potassium 4.7, BUN 9, serum creatinine 0.6, magnesium 2.7. She is currently maintained on aspirin 81 mg daily, atorvastatin 40 mg daily, Plavix 75 mg daily, losartan 25 mg daily metoprolol tartrate 25 mg twice a day. PHYSICAL EXAMINATION blood pressure 121/67, heart rate 80, afebrile, on 6L nasal cannula CONSTITUTIONAL: No apparent distress. HEENT: Head is normocephalic. Neck supple. No JVD. CHEST EXAMINATION: Lungs are diminished to auscultation. Some chest wall tenderness to deep breathing, incisional pain HEART EXAMINATION: Regular rate and rhythm. S1, S2 heard. No murmurs, gallops or rub. ABDOMEN: Soft, nontender. Positive bowel sounds. EXTREMITIES: 2+ peripheral pulses, no lower extremity edema and no calf tenderness. NEUROLOGIC EXAMINATION: Patient is awake, alert and oriented x3. LINES/DRAINS: Right radial arterial line, Chest tubes present ASSESSMENT Ascending aortic aneurysm, status post supra coronary ascending aortic replacement Hypertension COPD Dyslipidemia History of breast cancer Family history of coronary artery disease Hypokalemia PLAN -Continue aspirin, statin, Plavix, metoprolol tartrate and losartan -Increase activity as tolerated -Wean O2 as tolerated -Encourage incentive spirometer -Post operative management per CT surgery -We will continue to follow Nurse Practitioner note has been reviewed, I agree with a documented findings and plan of care. Patient was seen and examined. Objective - Vital Signs Vital signs: Vital Signs Temp 98.9 F 03/19/21 08:00 Pulse 80 03/19/21 11:00 Resp 20 03/19/21 11:00 BP 118/54 03/18/21 20:00 Pulse Ox 95 03/19/21 11:00 Intake & Output 03/18/21 03/19/21 03/19/21 18:59 06:59 18:59 Intake Total 636.357 907.322 590 Output Total 1135 690 180 Balance -498.643 217.322 410 Weight 88.5 kg 90.974 kg Intake: IV 597 404 110 CO/CI 60 Magnesium Sulfate-D5w Pmx 100 1 gm In Dextrose/Water 1 100ml.bag @ 100 mls/hr IVPB Q1H [facility]ASHID Rx#: [id number] Pressure Bag 87 72 30 Sodium Chloride 0.9% 1, 450 232 80 000 ml @ 20 mls/hr IV . Q24H [facility]ASHID Rx#:[id number] Intake, IV Titration 39.357 23.322 Amount Insulin Regular 100 unit 39.357 23.322 In Sodium Chloride 0.9% 100 ml @ Per Protocol IV .Q0M [facility] Rx#:[id number] Oral 480 480 Output: Chest Tube Drainage 640 370 160 Left Pleural 150 190 60 Mediastinal x2 270 70 30 Right Pleural 220 110 70 Urine 495 320 20 Other: Voiding Method Indwelling Catheter Indwelling Catheter Indwelling Catheter # Voids 0 ABP, PAP, CO, CI - Last Documented Arterial Blood Pressure 121/67 Pulmonary Artery Pressure 28/12 Cardiac Output 4.5 Cardiac Index 2.3 - Labs CBC & Chem 7: 03/19/21 05:00 03/19/21 05:00 Labs: Abnormal Lab Results - Last 24 Hours (Table) 03/18/21 03/18/21 03/18/21 Range/Units 12:45 12:47 13:55 WBC (3.8-10.6) k/uL RBC (3.80-5.40) m/uL Hgb (11.4-16.0) gm/dL Hct (34.0-46.0) % Plt Count (150-450) k/uL Neutrophils # (1.3-7.7) k/uL Sodium (137-145) mmol/L Potassium 3.4 L (3.5-5.1) mmol/L Carbon Dioxide (22-30) mmol/L Glucose (74-99) mg/dL POC Glucose (mg/dL) 126 H 124 H (75-99) mg/dL Calcium (8.4-10.2) mg/dL Magnesium (1.6-2.3) mg/dL AST (14-36) U/L Total Protein (6.3-8.2) g/dL Albumin (3.5-5.0) g/dL 03/18/21 03/18/21 03/18/21 Range/Units 15:26 17:12 18:44 WBC (3.8-10.6) k/uL RBC (3.80-5.40) m/uL Hgb (11.4-16.0) gm/dL Hct (34.0-46.0) % Plt Count (150-450) k/uL Neutrophils # (1.3-7.7) k/uL Sodium (137-145) mmol/L Potassium (3.5-5.1) mmol/L Carbon Dioxide (22-30) mmol/L Glucose (74-99) mg/dL POC Glucose (mg/dL) 104 H 130 H 141 H (75-99) mg/dL Calcium (8.4-10.2) mg/dL Magnesium (1.6-2.3) mg/dL AST (14-36) U/L Total Protein (6.3-8.2) g/dL Albumin (3.5-5.0) g/dL 03/18/21 03/18/21 03/18/21 Range/Units 20:06 21:20 21:24 WBC (3.8-10.6) k/uL RBC (3.80-5.40) m/uL Hgb (11.4-16.0) gm/dL Hct (34.0-46.0) % Plt Count (150-450) k/uL Neutrophils # (1.3-7.7) k/uL Sodium 131 L (137-145) mmol/L Potassium (3.5-5.1) mmol/L Carbon Dioxide 18 L (22-30) mmol/L Glucose 129 H (74-99) mg/dL POC Glucose (mg/dL) 143 H 136 H (75-99) mg/dL Calcium 7.7 L (8.4-10.2) mg/dL Magnesium (1.6-2.3) mg/dL AST (14-36) U/L Total Protein (6.3-8.2) g/dL Albumin (3.5-5.0) g/dL 03/18/21 03/19/21 03/19/21 Range/Units 22:48 00:28 02:16 WBC (3.8-10.6) k/uL RBC (3.80-5.40) m/uL Hgb (11.4-16.0) gm/dL Hct (34.0-46.0) % Plt Count (150-450) k/uL Neutrophils # (1.3-7.7) k/uL Sodium (137-145) mmol/L Potassium (3.5-5.1) mmol/L Carbon Dioxide (22-30) mmol/L Glucose (74-99) mg/dL POC Glucose (mg/dL) 126 H 129 H 124 H (75-99) mg/dL Calcium (8.4-10.2) mg/dL Magnesium (1.6-2.3) mg/dL AST (14-36) U/L Total Protein (6.3-8.2) g/dL Albumin (3.5-5.0) g/dL 03/19/21 03/19/21 03/19/21 Range/Units 05:00 05:00 05:06 WBC 13.1 H (3.8-10.6) k/uL RBC 3.11 L (3.80-5.40) m/uL Hgb 9.4 L (11.4-16.0) gm/dL Hct 27.4 L (34.0-46.0) % Plt Count 111 L (150-450) k/uL Neutrophils # 10.7 H (1.3-7.7) k/uL Sodium 131 L (137-145) mmol/L Potassium (3.5-5.1) mmol/L Carbon Dioxide 19 L (22-30) mmol/L Glucose 112 H (74-99) mg/dL POC Glucose (mg/dL) 120 H (75-99) mg/dL Calcium 8.1 L (8.4-10.2) mg/dL Magnesium 2.7 H (1.6-2.3) mg/dL AST 50 H (14-36) U/L Total Protein 5.1 L (6.3-8.2) g/dL Albumin 3.1 L (3.5-5.0) g/dL 03/19/21 03/19/21 Range/Units 06:52 08:08 WBC (3.8-10.6) k/uL RBC (3.80-5.40) m/uL Hgb (11.4-16.0) gm/dL Hct (34.0-46.0) % Plt Count (150-450) k/uL Neutrophils # (1.3-7.7) k/uL Sodium (137-145) mmol/L Potassium (3.5-5.1) mmol/L Carbon Dioxide (22-30) mmol/L Glucose (74-99) mg/dL POC Glucose (mg/dL) 127 H 123 H (75-99) mg/dL Calcium (8.4-10.2) mg/dL Magnesium (1.6-2.3) mg/dL AST (14-36) U/L Total Protein (6.3-8.2) g/dL Albumin (3.5-5.0) g/dL
--- NOTE | 2021-03-19 11:59 | P.PN ---
Subjective Progress Note Date: 03/19/21 Principal diagnosis: Status post ascending aortic aneurysm repair This is a 65-year-old female with ascending aortic aneurysm, patient underwent repair of the aneurysm today, her last cardiac catheterization on 02/26 showed no evidence of significant coronary artery disease. Patient had her surgery done earlier today electively by , patient was evaluated in the ICU while on mechanical ventilation. She is presently sedated, on Precedex, but arousable, and she is on assist control rate of 16, tidal volume is 400, FiO2 50% and PEEP of 5. ABG showed a pO2 of 102 pCO2 of 40 pH of 7.38. Chest x-ray is basically unremarkable. Hence I would likely proceed to weaning as per protocol, patient would likely be weaned and extubated shortly. Patient is not requiring any pressors, she is only on insulin drip at 3.5 units per hour, she is also on Precedex which is being tapered down and to be discontinued. Patient was reevaluated today on 03/18/2021, I saw the patient on consultation yesterday, and shortly after my evaluation, patient was extubated and tolerated the extubation well. She is now doing well, she is on 5 L nasal cannula, sitting at a bedside chair, she is on Klonopin, 2 mg/h, and no other drips. Patient has blood pressure of 147/47, cardiac output is 4.5 cardiac index is 2.3 CVP is 8 pulmonary pressure is 25/11. Continues to have right-sided chest tube drained 1 80 mL overnight, left-sided chest tube drained 3 20 mL overnight, and mediastinal chest tube drained 400 mL overnight. Chest x-ray showed minimal bibasilar atelectasis, no evidence of congestive heart failure. Overall the patient is doing great, she is not requiring any pressors, not requiring any inotropes. Again the patient is postoperative day #1, status post ascending a ortic aneurysm repair. On 03/19/2021 patient seen in follow-up in the intensive care unit, today is postoperative day #2, status post supra coronary ascending aortic replacement using a 32 mm Gelweave graft, closure of the patent cooney ovale, and exclusion of the left atrial appendage and intraoperative transesophageal echocardiogram and if the aortic scanning. She is awake alert, in no acute distress, she said to him in the recliner, her pulse ox is 90% on 6 L, yesterday she was having pain control issues, she feels that her pain is better controlled today, she is breathing easier, however her incentive spirometer effort is still suboptimal and she is only achieving 500 mL on it although her effort is fair, and she is trying to be compliant in doing that as much as possible. Chest x-ray today shows mild cardiomegaly, retrocardiac infiltrate correlate with atelectasis. Patient still has right and left chest tubes. Mediastinal chest tubes have beenDiscontinued. Right-sided chest tube has produced 330 mL of serosanguineous output in the last 24 hours, left pleural chest tube with 340 mL of output in last 24 hours. Palma catheter is in place, patient is producing 20-25-30 mL of urine every hour. She is currently remains on 0.9 normal saline every 30 mL per hour, and insulin infusion is at 2 units per hour. She is hemodynamically stable, not on any vasopressor support, in sinus mechanism with a rate of 83 bpm. Her Baird-Baron catheter has been discontinued. incision chest tube incisions are clean dry and intact. She continues on metoprolol at 25 mg twice daily, she is on breathing treatments, she is on subcu heparin 5000 units every 8 hours, she was given a dose of Lasix 20 mg IV push per CT surgery today. She is tolerating a heart healthy diet. Today's labs have been reviewed, white blood cell count is 13.1, hemoglobin is 9.4, platelet count is 111, sodium is 131, potassium is 4.7, chloride is 105, CO2 is 19, B1 is 9 creatinine 0.65 Objective - Vital Signs Vital signs: Vital Signs Temp 98.9 F 03/19/21 08:00 Pulse 80 03/19/21 11:00 Resp 20 03/19/21 11:00 BP 118/54 03/18/21 20:00 Pulse Ox 95 03/19/21 11:00 Intake & Output 03/18/21 03/19/21 03/19/21 18:59 06:59 18:59 Intake Total 636.357 907.322 590 Output Total 1135 690 180 Balance -498.643 217.322 410 Weight 88.5 kg 90.974 kg Intake: IV 597 404 110 CO/CI 60 Magnesium Sulfate-D5w Pmx 100 1 gm In Dextrose/Water 1 100ml.bag @ 100 mls/hr IVPB Q1H [facility] Rx#: [id number] Pressure Bag 87 72 30 Sodium Chloride 0.9% 1, 450 232 80 000 ml @ 20 mls/hr IV . Q24H [facility] Rx#:[id number] Intake, IV Titration 39.357 23.322 Amount Insulin Regular 100 unit 39.357 23.322 In Sodium Chloride 0.9% 100 ml @ Per Protocol IV .Q0M [facility] Rx#:[id number] Oral 480 480 Output: Chest Tube Drainage 640 370 160 Left Pleural 150 190 60 Mediastinal x2 270 70 30 Right Pleural 220 110 70 Urine 495 320 20 Other: Voiding Method Indwelling Catheter Indwelling Catheter Indwelling Catheter # Voids 0 ABP, PAP, CO, CI - Last Documented Arterial Blood Pressure 121/67 Pulmonary Artery Pressure 28/12 Cardiac Output 4.5 Cardiac Index 2.3 - Exam GENERAL EXAM: Alert, very pleasant, 65-year-old white female, sitting up in a recliner, on 6 L of oxygen a pulse ox of 90%, comfortable in no apparent distress. HEAD: Normocephalic/atraumatic. EYES: Normal reaction of pupils, equal size. Conjunctiva pink, sclera white. NOSE: Clear with pink turbinates. THROAT: No erythema or exudates. NECK: No masses, no JVD, no thyroid enlargement, no adenopathy. CHEST: No chest wall deformity. Symmetrical expansion. Midsternal incision and chest tube sites are clean dry and intact, covered with surgical dressings, interval removal of the 2 mediastinal chest tubes, right and left chest tube still remain in place, to continuous wall suction, with small to moderate amount of thin serosanguineous output in last 24 hours, no evidence of air leak. LUNGS: Equal air entry with no crackles, wheeze, rhonchi or dullness. CVS: Regular rate and rhythm, normal S1 and S2, no gallops, no murmurs, no rubs ABDOMEN: Soft, nontender. No hepatosplenomegaly, normal bowel sounds, no guarding or rigidity. EXTREMITIES: No clubbing, no edema, no cyanosis, 2+ pulses and upper and lower extremities. MUSCULOSKELETAL: Muscle strength and tone normal. SPINE: No scoliosis or deformity SKIN: No rashes CENTRAL NERVOUS SYSTEM: Alert and oriented -3. No focal deficits, tone is normal in all 4 extremities. PSYCHIATRIC: Alert and oriented -3. Appropriate affect. Intact judgment and insight. - Labs CBC & Chem 7: 03/19/21 05:00 03/19/21 05:00 Labs: Abnormal Lab Results - Last 24 Hours (Table) 03/18/21 03/18/21 03/18/21 Range/Units 12:45 12:47 13:55 WBC (3.8-10.6) k/uL RBC (3.80-5.40) m/uL Hgb (11.4-16.0) gm/dL Hct (34.0-46.0) % Plt Count (150-450) k/uL Neutrophils # (1.3-7.7) k/uL Sodium (137-145) mmol/L Potassium 3.4 L (3.5-5.1) mmol/L Carbon Dioxide (22-30) mmol/L Glucose (74-99) mg/dL POC Glucose (mg/dL) 126 H 124 H (75-99) mg/dL Calcium (8.4-10.2) mg/dL Magnesium (1.6-2.3) mg/dL AST (14-36) U/L Total Protein (6.3-8.2) g/dL Albumin (3.5-5.0) g/dL 03/18/21 03/18/21 03/18/21 Range/Units 15:26 17:12 18:44 WBC (3.8-10.6) k/uL RBC (3.80-5.40) m/uL Hgb (11.4-16.0) gm/dL Hct (34.0-46.0) % Plt Count (150-450) k/uL Neutrophils # (1.3-7.7) k/uL Sodium (137-145) mmol/L Potassium (3.5-5.1) mmol/L Carbon Dioxide (22-30) mmol/L Glucose (74-99) mg/dL POC Glucose (mg/dL) 104 H 130 H 141 H (75-99) mg/dL Calcium (8.4-10.2) mg/dL Magnesium (1.6-2.3) mg/dL AST (14-36) U/L Total Protein (6.3-8.2) g/dL Albumin (3.5-5.0) g/dL 03/18/21 03/18/21 03/18/21 Range/Units 20:06 21:20 21:24 WBC (3.8-10.6) k/uL RBC (3.80-5.40) m/uL Hgb (11.4-16.0) gm/dL Hct (34.0-46.0) % Plt Count (150-450) k/uL Neutrophils # (1.3-7.7) k/uL Sodium 131 L (137-145) mmol/L Potassium (3.5-5.1) mmol/L Carbon Dioxide 18 L (22-30) mmol/L Glucose 129 H (74-99) mg/dL POC Glucose (mg/dL) 143 H 136 H (75-99) mg/dL Calcium 7.7 L (8.4-10.2) mg/dL Magnesium (1.6-2.3) mg/dL AST (14-36) U/L Total Protein (6.3-8.2) g/dL Albumin (3.5-5.0) g/dL 03/18/21 03/19/21 03/19/21 Range/Units 22:48 00:28 02:16 WBC (3.8-10.6) k/uL RBC (3.80-5.40) m/uL Hgb (11.4-16.0) gm/dL Hct (34.0-46.0) % Plt Count (150-450) k/uL Neutrophils # (1.3-7.7) k/uL Sodium (137-145) mmol/L Potassium (3.5-5.1) mmol/L Carbon Dioxide (22-30) mmol/L Glucose (74-99) mg/dL POC Glucose (mg/dL) 126 H 129 H 124 H (75-99) mg/dL Calcium (8.4-10.2) mg/dL Magnesium (1.6-2.3) mg/dL AST (14-36) U/L Total Protein (6.3-8.2) g/dL Albumin (3.5-5.0) g/dL 03/19/21 03/19/21 03/19/21 Range/Units 05:00 05:00 05:06 WBC 13.1 H (3.8-10.6) k/uL RBC 3.11 L (3.80-5.40) m/uL Hgb 9.4 L (11.4-16.0) gm/dL Hct 27.4 L (34.0-46.0) % Plt Count 111 L (150-450) k/uL Neutrophils # 10.7 H (1.3-7.7) k/uL Sodium 131 L (137-145) mmol/L Potassium (3.5-5.1) mmol/L Carbon Dioxide 19 L (22-30) mmol/L Glucose 112 H (74-99) mg/dL POC Glucose (mg/dL) 120 H (75-99) mg/dL Calcium 8.1 L (8.4-10.2) mg/dL Magnesium 2.7 H (1.6-2.3) mg/dL AST 50 H (14-36) U/L Total Protein 5.1 L (6.3-8.2) g/dL Albumin 3.1 L (3.5-5.0) g/dL 03/19/21 03/19/21 Range/Units 06:52 08:08 WBC (3.8-10.6) k/uL RBC (3.80-5.40) m/uL Hgb (11.4-16.0) gm/dL Hct (34.0-46.0) % Plt Count (150-450) k/uL Neutrophils # (1.3-7.7) k/uL Sodium (137-145) mmol/L Potassium (3.5-5.1) mmol/L Carbon Dioxide (22-30) mmol/L Glucose (74-99) mg/dL POC Glucose (mg/dL) 127 H 123 H (75-99) mg/dL Calcium (8.4-10.2) mg/dL Magnesium (1.6-2.3) mg/dL AST (14-36) U/L Total Protein (6.3-8.2) g/dL Albumin (3.5-5.0) g/dL Assessment and Plan Plan: Assessment: #1. Ascending aortic aneurysm, status post supra coronary ascending aortic replacement, postoperative day #2 #2. 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 Patient also had left atrial appendage exclusion and intraoperative transesophageal echocardiogram #3. Acute hypoxic respiratory failure related to postoperative atelectasis #4. Hypertension #5. Hyperlipidemia #6. Mild COPD with preop FEV1 value of 67% of predicted #7. History of breast cancer status post radical right mastectomy #8. Acute postoperative acute blood loss anemia and thrombocytopenia, expected outcome of sternotomy surgery #9. Previous history of smoking Plan: Continue encouraging deep breathing and coughing Continue nebulized bronchodilators Today's chest x-ray has been reviewed Patient received 1 dose of IV Lasix per CT surgery Continue monitoring the net fluid balance and daily weights 6 L of oxygen currently Maintain pain control I performed a history & physical examination of the patient and discussed their management with my nurse practitioner, Liliana Walden. I reviewed the nurse practitioner's note and agree with the documented findings and plan of care. Lung sounds are positive for diminished breath sounds at the bases, with bibasilar crackles throughout the lung leyva. The findings and the impression was discussed with the patient. I attest to the documentation by the nurse practitioner. Time with Patient: Less than 30
--- NOTE | 2021-03-19 15:39 | P.PN ---
Subjective Patient is doing fairly well today. Her pain is a lot better compared to yesterday. She is still on IV insulin drip. Blood glucose has been well controlled. Patient denies any history of diabetes in the past. Objective - Vital Signs Vital signs: Vital Signs Temp 97.5 F L 03/19/21 12:00 Pulse 92 03/19/21 14:00 Resp 19 03/19/21 14:00 BP 118/54 03/18/21 20:00 Pulse Ox 94 L 03/19/21 14:00 Intake & Output 03/18/21 03/19/21 03/19/21 18:59 06:59 18:59 Intake Total 636.357 907.322 608 Output Total 1135 690 355 Balance -498.643 217.322 253 Weight 88.5 kg 90.974 kg Intake: IV 597 404 128 CO/CI 60 Magnesium Sulfate-D5w Pmx 100 1 gm In Dextrose/Water 1 100ml.bag @ 100 mls/hr IVPB Q1H [facility] Rx#: [id number] Pressure Bag 87 72 48 Sodium Chloride 0.9% 1, 450 232 80 000 ml @ 20 mls/hr IV . Q24H [facility] Rx#:[id number] Intake, IV Titration 39.357 23.322 Amount Insulin Regular 100 unit 39.357 23.322 In Sodium Chloride 0.9% 100 ml @ Per Protocol IV .Q0M [facility] Rx#:[id number] Oral 480 480 Output: Chest Tube Drainage 640 370 160 Left Pleural 150 190 60 Mediastinal x2 270 70 30 Right Pleural 220 110 70 Urine 495 320 195 Other: Voiding Method Indwelling Catheter Indwelling Catheter Indwelling Catheter # Voids 0 ABP, PAP, CO, CI - Last Documented Arterial Blood Pressure 111/69 Pulmonary Artery Pressure 28/12 Cardiac Output 4.5 Cardiac Index 2.3 - Exam General: The patient is awake and alert, in no distress Eye: there is normal conjunctiva bilaterally. Neck: The neck is supple, there is no JVD. Cardiovascular: Normal S1-S2, no S3-S4, no murmurs. Respiratory: Lungs clear to auscultation bilaterally Gastrointestinal: Abdomen is soft, nontender Musculoskeletal: There is no pedal edema. Neurological:. Speech is normal. Skin: Skin is warm and dry - Labs CBC & Chem 7: 03/19/21 05:00 03/19/21 05:00 Labs: Abnormal Lab Results - Last 24 Hours (Table) 03/18/21 03/18/21 03/18/21 Range/Units 17:12 18:44 20:06 WBC (3.8-10.6) k/uL RBC (3.80-5.40) m/uL Hgb (11.4-16.0) gm/dL Hct (34.0-46.0) % Plt Count (150-450) k/uL Neutrophils # (1.3-7.7) k/uL Sodium (137-145) mmol/L Carbon Dioxide (22-30) mmol/L Glucose (74-99) mg/dL POC Glucose (mg/dL) 130 H 141 H 143 H (75-99) mg/dL Calcium (8.4-10.2) mg/dL Magnesium (1.6-2.3) mg/dL AST (14-36) U/L Total Protein (6.3-8.2) g/dL Albumin (3.5-5.0) g/dL 03/18/21 03/18/21 03/18/21 Range/Units 21:20 21:24 22:48 WBC (3.8-10.6) k/uL RBC (3.80-5.40) m/uL Hgb (11.4-16.0) gm/dL Hct (34.0-46.0) % Plt Count (150-450) k/uL Neutrophils # (1.3-7.7) k/uL Sodium 131 L (137-145) mmol/L Carbon Dioxide 18 L (22-30) mmol/L Glucose 129 H (74-99) mg/dL POC Glucose (mg/dL) 136 H 126 H (75-99) mg/dL Calcium 7.7 L (8.4-10.2) mg/dL Magnesium (1.6-2.3) mg/dL AST (14-36) U/L Total Protein (6.3-8.2) g/dL Albumin (3.5-5.0) g/dL 03/19/21 03/19/21 03/19/21 Range/Units 00:28 02:16 05:00 WBC 13.1 H (3.8-10.6) k/uL RBC 3.11 L (3.80-5.40) m/uL Hgb 9.4 L (11.4-16.0) gm/dL Hct 27.4 L (34.0-46.0) % Plt Count 111 L (150-450) k/uL Neutrophils # 10.7 H (1.3-7.7) k/uL Sodium (137-145) mmol/L Carbon Dioxide (22-30) mmol/L Glucose (74-99) mg/dL POC Glucose (mg/dL) 129 H 124 H (75-99) mg/dL Calcium (8.4-10.2) mg/dL Magnesium (1.6-2.3) mg/dL AST (14-36) U/L Total Protein (6.3-8.2) g/dL Albumin (3.5-5.0) g/dL 03/19/21 03/19/21 03/19/21 Range/Units 05:00 05:06 06:52 WBC (3.8-10.6) k/uL RBC (3.80-5.40) m/uL Hgb (11.4-16.0) gm/dL Hct (34.0-46.0) % Plt Count (150-450) k/uL Neutrophils # (1.3-7.7) k/uL Sodium 131 L (137-145) mmol/L Carbon Dioxide 19 L (22-30) mmol/L Glucose 112 H (74-99) mg/dL POC Glucose (mg/dL) 120 H 127 H (75-99) mg/dL Calcium 8.1 L (8.4-10.2) mg/dL Magnesium 2.7 H (1.6-2.3) mg/dL AST 50 H (14-36) U/L Total Protein 5.1 L (6.3-8.2) g/dL Albumin 3.1 L (3.5-5.0) g/dL 03/19/21 Range/Units 08:08 WBC (3.8-10.6) k/uL RBC (3.80-5.40) m/uL Hgb (11.4-16.0) gm/dL Hct (34.0-46.0) % Plt Count (150-450) k/uL Neutrophils # (1.3-7.7) k/uL Sodium (137-145) mmol/L Carbon Dioxide (22-30) mmol/L Glucose (74-99) mg/dL POC Glucose (mg/dL) 123 H (75-99) mg/dL Calcium (8.4-10.2) mg/dL Magnesium (1.6-2.3) mg/dL AST (14-36) U/L Total Protein (6.3-8.2) g/dL Albumin (3.5-5.0) g/dL Assessment and Plan Assessment: 1. Postoperative day #2 status post ascending aortic graft replacement for underlying ascending aortic aneurysm 2. Hyperlipidemia on Lipitor, LDL 86 3. Underlying COPD with no evidence of exacerbation 4. Anemia and thrombocytopenia, postoperative. Monitor CBC closely. Platelet count improving Today, I reviewed her medication list and lab work results. Most management per primary team Discontinue IV insulin drip and start NovoLog sliding scale. I will continue to follow up on the patient closely with you.
[2021-03-19] MEDS: LOSARTAN 25 MG TAB PO SCH (16:40)
[2021-03-19] MEDS: INSULIN ASPART (NovoLOG) 100 UNIT/ML VIAL SQ SCH ×2 (16:56→21:24)
[2021-03-19 17:00] LABS: Glucose,Whole Blood 122 mg/dL (75-99)
[2021-03-19] MEDS ORDERED: INSULIN ASPART (NovoLOG) 100 UNIT/ML VIAL SQ SCH (18:00)
[2021-03-19 21:19] LABS: Glucose,Whole Blood 114 mg/dL (75-99)
[2021-03-19] MEDS: SENNOSIDES-DOCUSATE SODIUM 1 EACH TAB PO SCH (21:24)
[2021-03-20 04:38] LABS: Basophils % (A) 0 %; Eosinophils % (A) 0 %; HCT 25.5 % (34.0-46.0); HGB 8.3 gm/dL (11.4-16.0); Lymphocytes # (A) 1.3 k/uL (1.0-4.8); Lymphocytes % (A) 13 %; MCH 29.3 pg (25.0-35.0); MCHC 32.6 g/dL (31.0-37.0); MCV 89.9 fL (80.0-100.0); Mean Platelet Volume 9.6; Monocytes # (A) 0.3 k/uL (0-1.0); Monocytes % (A) 3 %; Neutrophils # (A) 8.4 k/uL (1.3-7.7); Neutrophils % (A) 81 %; Platelet Count 108 k/uL (150-450); RBC 2.84 m/uL (3.80-5.40); RDW 13.9 % (11.5-15.5); WBC 10.3 k/uL (3.8-10.6)
[2021-03-20 05:05] LABS: Ionized Calcium 4.6 mg/dL (4.5-5.3)
[2021-03-20 05:17] LABS: ALT 19 U/L (4-34); AST 43 U/L (14-36); African American GFR (CKD) >90 (>60 ml/min/1.73 sqM); Albumin 2.9 g/dL (3.5-5.0); Alkaline Phosphatase 58 U/L (38-126); Anion Gap 7 mmol/L; Blood Urea Nitrogen 12 mg/dL (7-17); Calcium 7.9 mg/dL (8.4-10.2); Carbon Dioxide 23 mmol/L (22-30); Chloride 103 mmol/L (98-107); Glucose 127 mg/dL (74-99); Magnesium 2.5 mg/dL (1.6-2.3); Non-African American GFR(CKD) 84 (>60 ml/min/1.73 sqM); Potassium 4.4 mmol/L (3.5-5.1); Sodium 133 mmol/L (137-145)
[2021-03-20] MEDS: HYDROcodone/APAP 5-325MG 1 EACH TAB PO PRN (05:33)
[2021-03-20 06:53] LABS: Glucose,Whole Blood 114 mg/dL (75-99)
[2021-03-20] MEDS: PANTOPRAZOLE 40 MG TABLET PO SCH (06:55)
[2021-03-20] MEDS: INSULIN ASPART (NovoLOG) 100 UNIT/ML VIAL SQ SCH ×3 (06:55→20:59)
--- NOTE | 2021-03-20 08:08 | XR ---
EXAMINATION TYPE: XR chest 1V portable DATE OF EXAM: 03/20/2021 Comparison: 03/19/2021 Clinical History: 65-year-old female post cardiac surgery Findings: Median sternotomy wires. Heart borderline enlarged, unchanged. Retained epicardial pacer leads. Surgi grey clips right axilla. Mild interstitial density is present. Some patchy bibasilar opacities persist . Left basilar chest tube. No appreciable pneumothorax. Impression: Mild patchy bibasilar opacities persist, likely atelectasis.
--- NOTE | 2021-03-20 08:38 | P.PN ---
Subjective Progress Note Date: 03/20/21 Principal diagnosis: Ascending aortic aneurysm, large patent foramen ovale with a spontaneous left to right shunt. Previous medical history of hypertension, hyperlipidemia, previous tobacco dependence, mild COPD, ETOH use 2-7 drinks weekly, breast cancer status post radical right mastectomy, paroxysmal vertigo, and family history of premature coronary artery with father from [place] at 54 years old, vaccinated against Covid. POD #3 Supra coronary ascending aortic replacement with 32 mm gelweave graft, closure of PFO, exclusion of left atrial appendage with 35 mm Atriclup, introperative transesophageal echocardiogram and epi-aortic scanning Postoperative acute blood loss anemia and thrombocytopenia, expected after open heart surgery given hemodilution and cardiopulmonary bypass pump The patient was seen and examined this morning in the intensive care unit. She was sitting up in the recliner in no acute distress eating breakfast. States post surgical pain continues to be controlled on current medication regimen, denies shortness of breath. She remains in sinus rhythm, hemodynamically stable. Left/right pleural chest tubes remain. Actively using incentive spirometry, achieving 500-750 mL. Remains on 4 LPM high flow nasal cannula. Ambulated in the hallway 4 times yesterday. Uneventful evening, states she feels a bit better everyday, no new concerns. Objective - Vital Signs Vital signs: Vital Signs Temp 97.8 F 03/20/21 04:00 Pulse 80 03/20/21 04:00 Resp 16 03/20/21 04:00 BP 99/47 03/20/21 04:00 Pulse Ox 93 L 03/20/21 04:00 Intake & Output 03/19/21 03/20/21 03/20/21 18:59 06:59 18:59 Intake Total 611 Output Total 785 1760 Balance -174 -1760 Weight 89 kg Intake: IV 131 Pressure Bag 51 Sodium Chloride 0.9% 1, 80 000 ml @ 20 mls/hr IV . Q24H [facility] Rx#:[id number] Oral 480 Output: Chest Tube Drainage 390 260 Left Pleural 180 90 Mediastinal x2 30 Right Pleural 180 170 Urine 395 1500 Other: Voiding Method Indwelling Catheter Bedside Commode # Voids 0 ABP, PAP, CO, CI - Last Documented Arterial Blood Pressure 110/51 Pulmonary Artery Pressure 28/12 Cardiac Output 4.5 Cardiac Index 2.3 - Exam CONSTITUTIONAL: Appears comfortable, cooperative, no acute distress RESPIRATORY: Lungs sounds diminished bilaterally. Respirations even, nonlabored. Currently on 4 L high flow nasal cannula with oxygen saturation 93- 95%. Able to achieve 500-750 mL on incentive spirometry. Strong cough. CARDIOVASCULAR: S1, S2 present. Regular rate and rhythm, sinus rhythm on te lemetry. Sternum stable. Palpable peripheral pulses bilaterally. Trace generalized edema present. No calf pain or tenderness noted. Heart hugger in place with patient demonstrating appropriate use. Antiembolism stockings, SCDs present. GASTROINTESTINAL: Abdomen soft, nontender, nondistended. Active bowel sounds present 4 quadrants. Tolerating diet. Positive flatus GENITOURINARY: Palma discontinued yesterday, continues to void clear, yellow urine. Output 1295 mL in the last 24 hours INTEGUMENTARY: Skin is warm and dry with evidence of good perfusion. Anterior chest incision well approximated and covered with dry intact dressing. NEUROLOGIC: Cranial nerves II through XII intact MUSKULOSKELETAL: Able to move all extremities, strength equal bilaterally, gait normal PSYCHIATRIC: Alert and oriented to person place and time, appropriate affect, intact judgment and insight INVASIVE LINES AND TUBES: Left/right pleural chest tubes present and connected to wall suction, no air leaks present. Left pleural chest tube with 30 mL serosanguineous drainage overnight, 200 mL in the last 24 hours. Right pleural chest tube with 100 mL serosanguineous drainage overnight, 200 mL in the last 24 hours. A/V epicardial pacemaker wires present, grounded. - Allied health notes Allied health notes reviewed: nursing - Labs CBC & Chem 7: 03/20/21 03:52 03/20/21 03:52 Labs: Abnormal Lab Results - Last 24 Hours (Table) 03/19/21 03/19/21 03/20/21 Range/Units 16:59 21:18 03:52 RBC (3.80-5.40) m/uL Hgb (11.4-16.0) gm/dL Hct (34.0-46.0) % Plt Count (150-450) k/uL Neutrophils # (1.3-7.7) k/uL Sodium 133 L (137-145) mmol/L Glucose 127 H (74-99) mg/dL POC Glucose (mg/dL) 122 H 114 H (75-99) mg/dL Calcium 7.9 L (8.4-10.2) mg/dL Magnesium 2.5 H (1.6-2.3) mg/dL AST 43 H (14-36) U/L Total Protein 5.0 L (6.3-8.2) g/dL Albumin 2.9 L (3.5-5.0) g/dL 03/20/21 03/20/21 Range/Units 03:52 06:52 RBC 2.84 L (3.80-5.40) m/uL Hgb 8.3 L (11.4-16.0) gm/dL Hct 25.5 L (34.0-46.0) % Plt Count 108 L (150-450) k/uL Neutrophils # 8.4 H (1.3-7.7) k/uL Sodium (137-145) mmol/L Glucose (74-99) mg/dL POC Glucose (mg/dL) 114 H (75-99) mg/dL Calcium (8.4-10.2) mg/dL Magnesium (1.6-2.3) mg/dL AST (14-36) U/L Total Protein (6.3-8.2) g/dL Albumin (3.5-5.0) g/dL - Imaging and Cardiology Chest x-ray: report reviewed, image reviewed Assessment and Plan Assessment: 1. Ascending aortic aneurysm, status post supra coronary ascending aortic replacement 2. Large patent foramen ovale with spontaneous [id number] shunt, status post closure of PFO 3. Hypertension 4. Hyperlipidemia, treated, cholesterol 167, LDL 86, triglycerides 204 5. Previous tobacco dependence 6. Mild COPD with preoperative FEV1 67% of predicted and DLCO of 51% of predicted 7. ETOH use 2-7 drinks weekly 8. History of breast cancer status post radical right mastectomy 9. Paroxysmal vertigo 10. Family history of premature coronary artery with father from [place] at 54 years old 11. Vaccinated against Covid. 12. Postoperative acute blood loss anemia and thrombocytopenia, expected Plan: 1. Continue aspirin, statin, Plavix, beta silvestre therapy. Will increase beta silvestre therapy as tolerated. Continue Cozaar for afterload reduction 2. Wean O2 as tolerated. Encourage incentive spirometry 10 times every hour while awake. Bronchodilators per pulmonology 3. Increase activity, ambulate as tolerated. PT/OT/cardiac rehab consulted 4. GI/DVT prophylaxis 5. Will monitor daily labs and chest x-rays. Electrolyte replacement per protocol. 6. Pain control with current medication regimen 7. Insulin management per primary care service. Patient is not diabetic, recent hemoglobin A1c 6.2%, does need tight blood sugar control to promote sternal union and prevent infection 8. Likely will discontinue pleural chest tubes 9. Strict accurate intake and output. Daily weights. 10. Will place transfer orders for 3 [facility] cardiac stepdown unit 11. Discharge planning in place. Anticipate discharge to home with home care soon 12. More recommendations to follow as patient progresses Time with Patient: Greater than 30
[2021-03-20] MEDS ORDERED: FUROSEMIDE 10 MG/ML 2 ML VIAL IV ONE (08:47)
[2021-03-20] MEDS: IPRATROPIUM-ALBUTEROL 3 ML NEB INHALATION SCH ×4 (09:01→23:18)
[2021-03-20] MEDS: ATORVASTATIN 40 MG TAB PO SCH (09:20)
[2021-03-20] MEDS: ASCORBIC ACID 500 MG TAB PO SCH (09:20)
[2021-03-20] MEDS: ASPIRIN 81 MG PO SCH (09:20)
[2021-03-20] MEDS: CLOPIDOGREL 75 MG TAB PO SCH (09:20)
[2021-03-20] MEDS: CHOLECALCIFEROL 25 MCG (1000 IU) TABLET PO SCH (09:20)
[2021-03-20] MEDS: HEPARIN SODIUM,PORCINE/PF 5,000 UNIT/0.5 ML SYRINGE SQ SCH ×2 (09:20→19:09)
[2021-03-20] MEDS: METOPROLOL TARTRATE 25 MG TAB PO SCH ×2 (11:27→20:57)
--- NOTE | 2021-03-20 12:32 | P.PN ---
Subjective Progress Note Date: 03/20/21 Principal diagnosis: Status post ascending aortic aneurysm repair This is a 65-year-old female with ascending aortic aneurysm, patient underwent repair of the aneurysm today, her last cardiac catheterization on 02/26 showed no evidence of significant coronary artery disease. Patient had her surgery done earlier today electively by , patient was evaluated in the ICU while on mechanical ventilation. She is presently sedated, on Precedex, but arousable, and she is on assist control rate of 16, tidal volume is 400, FiO2 50% and PEEP of 5. ABG showed a pO2 of 102 pCO2 of 40 pH of 7.38. Chest x-ray is basically unremarkable. Hence I would likely proceed to weaning as per protocol, patient would likely be weaned and extubated shortly. Patient is not requiring any pressors, she is only on insulin drip at 3.5 units per hour, she is also on Precedex which is being tapered down and to be discontinued. Patient was reevaluated today on 03/18/2021, I saw the patient on consultation yesterday, and shortly after my evaluation, patient was extubated and tolerated the extubation well. She is now doing well, she is on 5 L nasal cannula, sitting at a bedside chair, she is on Klonopin, 2 mg/h, and no other drips. Patient has blood pressure of 147/47, cardiac output is 4.5 cardiac index is 2.3 CVP is 8 pulmonary pressure is 25/11. Continues to have right-sided chest tube drained 1 80 mL overnight, left-sided chest tube drained 3 20 mL overnight, and mediastinal chest tube drained 400 mL overnight. Chest x-ray showed minimal bibasilar atelectasis, no evidence of congestive heart failure. Overall the patient is doing great, she is not requiring any pressors, not requiring any inotropes. Again the patient is postoperative day #1, status post ascending a ortic aneurysm repair. On 03/19/2021 patient seen in follow-up in the intensive care unit, today is postoperative day #2, status post supra coronary ascending aortic replacement using a 32 mm Gelweave graft, closure of the patent cooney ovale, and exclusion of the left atrial appendage and intraoperative transesophageal echocardiogram and if the aortic scanning. She is awake alert, in no acute distress, she said to him in the recliner, her pulse ox is 90% on 6 L, yesterday she was having pain control issues, she feels that her pain is better controlled today, she is breathing easier, however her incentive spirometer effort is still suboptimal and she is only achieving 500 mL on it although her effort is fair, and she is trying to be compliant in doing that as much as possible. Chest x-ray today shows mild cardiomegaly, retrocardiac infiltrate correlate with atelectasis. Patient still has right and left chest tubes. Mediastinal chest tubes have beenDiscontinued. Right-sided chest tube has produced 330 mL of serosanguineous output in the last 24 hours, left pleural chest tube with 340 mL of output in last 24 hours. [place] catheter is in place, patient is producing 20-25-30 mL of urine every hour. She is currently remains on 0.9 normal saline every 30 mL per hour, and insulin infusion is at 2 units per hour. She is hemodynamically stable, not on any vasopressor support, in sinus mechanism with a rate of 83 bpm. Her [place] catheter has been discontinued. incision chest tube incisions are clean dry and intact. She continues on metoprolol at 25 mg twice daily, she is on breathing treatments, she is on subcu heparin 5000 units every 8 hours, she was given a dose of Lasix [address] mg IV push per CT surgery today. She is tolerating a heart healthy diet. Today's labs have been reviewed, white blood cell count is 13.1, hemoglobin is 9.4, platelet count is 111, sodium is 131, potassium is 4.7, chloride is 105, CO2 is 19, B1 is 9 creatinine 0.65 The patient is seen today 03/20/2021 in follow-up in the intensive care unit. She is currently sitting up in a chair at the bedside. Awake and alert in no acute distress. Postoperative day #3. She is maintaining O2 saturations in the 90s on 4 L/m per nasal cannula. She is pulling still only proximally 500-750 ML S on her incentive spirometry. No IV fluids. Remaining in sinus rhythm. Left chest tube remains in place with 200 mL out the past 24 hours, right-sided chest tube in place with 200 mL past 24 hours. Her pain is better controlled with [place]. Chest x-ray reveals mild patchy bibasilar opacities/atelectasis. White count 10.3. Hemoglobin 8.3. Platelet count 108. Sodium 133. Potassium 4.4. Creatinine 0.76. Glucose 127. AST 43. ALT 19. She remains on bronchodilators. Heparin for DVT prophylaxis. Objective - Vital Signs Vital signs: Vital Signs Temp 97.8 F 03/20/21 04:00 Pulse 80 03/20/21 04:00 Resp 16 03/20/21 04:00 BP 99/47 03/20/21 04:00 Pulse Ox 93 L 03/20/21 04:00 Intake & Output 03/19/21 03/20/21 03/20/21 18:59 06:59 18:59 Intake Total 611 Output Total 785 1760 Balance -174 -1760 Weight 89 kg Intake: IV 131 Pressure Bag 51 Sodium Chloride 0.9% 1, 80 000 ml @ 20 mls/hr IV . Q24H [facility] Rx#:[id number] Oral 480 Output: Chest Tube Drainage 390 260 Left Pleural 180 90 Mediastinal x2 30 Right Pleural 180 170 Urine 395 1500 Other: Voiding Method Indwelling Catheter Bedside Commode # Voids 0 ABP, PAP, CO, CI - Last Documented Arterial Blood Pressure 110/51 Pulmonary Artery Pressure 28/12 Cardiac Output 4.5 Cardiac Index 2.3 - Exam GENERAL EXAM: Alert, very pleasant, 65-year-old female patient, sitting up in a recliner, on 4 L of oxygen a pulse ox of 93%, comfortable in no apparent distress. HEAD: Normocephalic/atraumatic. EYES: Normal reaction of pupils, equal size. Conjunctiva pink, sclera white. NOSE: Clear with pink turbinates. THROAT: No erythema or exudates. NECK: No masses, no JVD, no thyroid enlargement, no adenopathy. CHEST: No chest wall deformity. Symmetrical expansion. Midsternal incision and chest tube sites are clean dry and intact, covered with surgical dressings, right and left chest tube still remain in place LUNGS: Equal air entry with faint crackles in the posterior bases CVS: Regular rate and rhythm, normal S1 and S2, no gallops, no murmurs, no rubs ABDOMEN: Soft, nontender. No hepatosplenomegaly, normal bowel sounds, no guarding or rigidity. EXTREMITIES: No clubbing, no edema, no cyanosis, 2+ pulses and upper and lower extremities. MUSCULOSKELETAL: Muscle strength and tone normal. SPINE: No scoliosis or deformity SKIN: No rashes CENTRAL NERVOUS SYSTEM: No focal deficits, tone is normal in all 4 extremities. PSYCHIATRIC: Alert and oriented -3. Appropriate affect. Intact judgment and insight. - Labs CBC & Chem 7: 03/20/21 03:52 03/20/21 03:52 Labs: Abnormal Lab Results - Last 24 Hours (Table) 03/19/21 03/19/21 03/20/21 Range/Units 16:59 21:18 03:52 RBC (3.80-5.40) m/uL Hgb (11.4-16.0) gm/dL Hct (34.0-46.0) % Plt Count (150-450) k/uL Neutrophils # (1.3-7.7) k/uL Sodium 133 L (137-145) mmol/L Glucose 127 H (74-99) mg/dL POC Glucose (mg/dL) 122 H 114 H (75-99) mg/dL Calcium 7.9 L (8.4-10.2) mg/dL Magnesium 2.5 H (1.6-2.3) mg/dL AST 43 H (14-36) U/L Total Protein 5.0 L (6.3-8.2) g/dL Albumin 2.9 L (3.5-5.0) g/dL 03/20/21 03/20/21 Range/Units 03:52 06:52 RBC 2.84 L (3.80-5.40) m/uL Hgb 8.3 L (11.4-16.0) gm/dL Hct 25.5 L (34.0-46.0) % Plt Count 108 L (150-450) k/uL Neutrophils # 8.4 H (1.3-7.7) k/uL Sodium (137-145) mmol/L Glucose (74-99) mg/dL POC Glucose (mg/dL) 114 H (75-99) mg/dL Calcium (8.4-10.2) mg/dL Magnesium (1.6-2.3) mg/dL AST (14-36) U/L Total Protein (6.3-8.2) g/dL Albumin (3.5-5.0) g/dL Assessment and Plan Assessment: 1 Ascending aortic aneurysm, status post supra coronary ascending aortic replacement, postoperative day #3 2 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 Patient also had left atrial appendage exclusion and intraoperative transesophageal echocardiogram 3 Acute hypoxic respiratory failure related to postoperative atelectasis currently on 4 L/m per nasal cannula 4 Hypertension 5 Hyperlipidemia 6 Mild COPD with preop FEV1 value of 67% of predicted 7 History of breast cancer status post radical right mastectomy 8 Acute postoperative acute blood loss anemia and thrombocytopenia, expected outcome of sternotomy surgery 9 Previous history of smoking Plan: The patient was seen and evaluated by Dr. Astudillo Chest x-ray and labs reviewed Again encouraged regarding the increased use the incentive spirometer and cough and deep breathing exercises Increase her activity as tolerated Titrate the FiO2 as tolerated We will continue to follow I, the cosigning physician, performed a history & physical examination of the patient. Lungs sounds with crackles in the posterior bases. Maintaining good O2 saturations in the 90s on 4 L/m per nasal cannula. I discussed the assessment and plan of care with my nurse practitioner, Lisa Baez. I attest to the above note as dictated by her.
--- NOTE | 2021-03-20 13:46 | P.PN ---
Subjective Patient is doing fairly well today. No acute events overnight. She is awaiting further recommendations from CT surgery regarding chest tube removal today Objective - Vital Signs Vital signs: Vital Signs Temp 97.8 F 03/20/21 04:00 Pulse 80 03/20/21 04:00 Resp 16 03/20/21 04:00 BP 99/47 03/20/21 04:00 Pulse Ox 93 L 03/20/21 04:00 Intake & Output 03/19/21 03/20/21 03/20/21 18:59 06:59 18:59 Intake Total 611 Output Total 785 1760 Balance -174 -1760 Weight 89 kg Intake: IV 131 Pressure Bag 51 Sodium Chloride 0.9% 1, 80 000 ml @ 20 mls/hr IV . Q24H [facility] Rx#:[id number] Oral 480 Output: Chest Tube Drainage 390 260 Left Pleural 180 90 Mediastinal x2 30 Right Pleural 180 170 Urine 395 1500 Other: Voiding Method Indwelling Catheter Bedside Commode # Voids 0 ABP, PAP, CO, CI - Last Documented Arterial Blood Pressure 110/51 Pulmonary Artery Pressure 28/12 Cardiac Output 4.5 Cardiac Index 2.3 - Exam General: The patient is awake and alert, in no distress Eye: there is normal conjunctiva bilaterally. Neck: The neck is supple, there is no JVD. Cardiovascular: Normal S1-S2, no S3-S4, no murmurs. Respiratory: Lungs clear to auscultation bilaterally Gastrointestinal: Abdomen is soft, nontender Musculoskeletal: There is no pedal edema. Neurological:. Speech is normal. Skin: Skin is warm and dry - Labs CBC & Chem 7: 03/20/21 03:52 03/20/21 03:52 Labs: Abnormal Lab Results - Last 24 Hours (Table) 03/19/21 03/19/21 03/20/21 Range/Units 16:59 21:18 03:52 RBC (3.80-5.40) m/uL Hgb (11.4-16.0) gm/dL Hct (34.0-46.0) % Plt Count (150-450) k/uL Neutrophils # (1.3-7.7) k/uL Sodium 133 L (137-145) mmol/L Glucose 127 H (74-99) mg/dL POC Glucose (mg/dL) 122 H 114 H (75-99) mg/dL Calcium 7.9 L (8.4-10.2) mg/dL Magnesium 2.5 H (1.6-2.3) mg/dL AST 43 H (14-36) U/L Total Protein 5.0 L (6.3-8.2) g/dL Albumin 2.9 L (3.5-5.0) g/dL 03/20/21 03/20/21 Range/Units 03:52 06:52 RBC 2.84 L (3.80-5.40) m/uL Hgb 8.3 L (11.4-16.0) gm/dL Hct 25.5 L (34.0-46.0) % Plt Count 108 L (150-450) k/uL Neutrophils # 8.4 H (1.3-7.7) k/uL Sodium (137-145) mmol/L Glucose (74-99) mg/dL POC Glucose (mg/dL) 114 H (75-99) mg/dL Calcium (8.4-10.2) mg/dL Magnesium (1.6-2.3) mg/dL AST (14-36) U/L Total Protein (6.3-8.2) g/dL Albumin (3.5-5.0) g/dL Assessment and Plan Assessment: 1. Postoperative day #3 status post ascending aortic graft replacement for u nderlying ascending aortic aneurysm 2. Hyperlipidemia on Lipitor, LDL 86 3. Underlying COPD with no evidence of exacerbation 4. Anemia and thrombocytopenia, postoperative. Monitor CBC closely. Platelet count improving Today, I reviewed her medication list and lab work results. Most management per primary team Continue current regimen otherwise I will continue to follow up on the patient closely with you.
[2021-03-20] MEDS: LOSARTAN 25 MG TAB PO SCH (13:51)
[2021-03-20 16:02] LABS: Glucose,Whole Blood 106 mg/dL (75-99)
[2021-03-20 20:55] LABS: Glucose,Whole Blood 127 mg/dL (75-99)
[2021-03-20] MEDS: SENNOSIDES-DOCUSATE SODIUM 1 EACH TAB PO SCH (20:57)
[2021-03-21] MEDS: HYDROcodone/APAP 5-325MG 1 EACH TAB PO PRN (00:06)
[2021-03-21] MEDS: HEPARIN SODIUM,PORCINE/PF 5,000 UNIT/0.5 ML SYRINGE SQ SCH ×4 (01:15→22:40)
[2021-03-21 05:27] LABS: HCT 23.4 % (34.0-46.0); HGB 7.5 gm/dL (11.4-16.0); MCH 29.7 pg (25.0-35.0); MCHC 32.1 g/dL (31.0-37.0); MCV 92.5 fL (80.0-100.0); Mean Platelet Volume 8.9; Platelet Count 131 k/uL (150-450); RBC 2.53 m/uL (3.80-5.40); RDW 13.7 % (11.5-15.5); WBC 7.8 k/uL (3.8-10.6)
[2021-03-21 05:55] LABS: ALT 60 U/L (4-34); AST 82 U/L (14-36); African American GFR (CKD) >90 (>60 ml/min/1.73 sqM); Albumin 2.8 g/dL (3.5-5.0); Alkaline Phosphatase 77 U/L (38-126); Anion Gap 6 mmol/L; Blood Urea Nitrogen 10 mg/dL (7-17); Calcium 7.9 mg/dL (8.4-10.2); Carbon Dioxide 25 mmol/L (22-30); Chloride 103 mmol/L (98-107); Glucose 107 mg/dL (74-99); Non-African American GFR(CKD) >90 (>60 ml/min/1.73 sqM); Potassium 4.2 mmol/L (3.5-5.1); Sodium 134 mmol/L (137-145); Total Bilirubin 0.8 mg/dL (0.2-1.3); Total Protein 4.9 g/dL (6.3-8.2)
[2021-03-21 06:58] LABS: Glucose,Whole Blood 104 mg/dL (75-99)
[2021-03-21] MEDS: INSULIN ASPART (NovoLOG) 100 UNIT/ML VIAL SQ SCH ×3 (07:02→20:55)
[2021-03-21] MEDS: PANTOPRAZOLE 40 MG TABLET PO SCH (07:02)
--- NOTE | 2021-03-21 07:09 | XR ---
EXAMINATION TYPE: XR chest 1V portable DATE OF EXAM: 03/21/2021 COMPARISON: 03/20/2021 HISTORY: Post cardiac surgery TECHNIQUE: Single frontal view of the chest is obtained. FINDINGS: Postoperative changes are seen with bilateral areas of infiltrate and small left effusion. No overt failure. Heart size stable. No pneumothorax. Surgical clips right axilla. Suggestion of pos sible epicardial lead. Hypertrophic change of the spine. IMPRESSION: Bilateral infiltrate and small effusion stable.
[2021-03-21] MEDS ORDERED: FUROSEMIDE 10 MG/ML 2 ML VIAL IV ONE (08:31)
--- NOTE | 2021-03-21 08:45 | P.PN ---
Subjective Progress Note Date: 03/21/21 Principal diagnosis: Ascending aortic aneurysm, large patent foramen ovale with a spontaneous left to right shunt. Previous medical history of hypertension, hyperlipidemia, previous tobacco dependence, mild COPD, ETOH use 2-7 drinks weekly, breast cancer status post radical right mastectomy, paroxysmal vertigo, and family history of premature coronary artery with father from [place] at 54 years old, vaccinated against Covid. POD #4 Supra coronary ascending aortic replacement with 32 mm gelweave graft, closure of PFO, exclusion of left atrial appendage with 35 mm Atricl[place], introperative transesophageal echocardiogram and epi-aortic scanning Postoperative acute blood loss anemia and thrombocytopenia, expected after open heart surgery given hemodilution and cardiopulmonary bypass pump The patient was seen and examined with Dr. Leger this morning in the intensive care unit. She was sitting up in the recliner in no acute distress eating breakfast. States post surgical pain continues to be controlled on current medication regimen, denies shortness of breath. She remains in sinus rhythm, hemodynamically stable. Actively using incentive spirometry, achieving 500-750 mL, on room air and oxygenating well. Ambulated in the hallway yesterday without difficulty. Uneventful evening, states she feels a bit better everyday, no new concerns. Transfer orders placed yesterday for [address] [facility] cardiac stepdown unit, awaiting bed. Objective - Vital Signs Vital signs: Vital Signs Temp 97.8 F 03/21/21 04:00 Pulse 73 03/21/21 04:00 Resp 18 03/21/21 04:00 BP 103/47 03/21/21 04:00 Pulse Ox 95 03/21/21 04:00 Intake & Output 03/20/21 03/21/21 03/21/21 18:59 06:59 18:59 Intake Total 922 540 240 Output Total 1150 700 500 Balance -228 -160 -260 Weight 88.1 kg Intake: Oral 922 540 240 Output: Urine 1150 700 500 Other: Voiding Method Toilet Toilet Bedside Commode Bedside Commode ABP, PAP, CO, CI - Last Documented Arterial Blood Pressure 110/51 Pulmonary Artery Pressure 28/12 Cardiac Output 4.5 Cardiac Index 2.3 - Exam CONSTITUTIONAL: Appears comfortable, cooperative, no acute distress RESPIRATORY: Lungs sounds diminished bilaterally. Respirations even, n onlabored. Currently on room air with oxygen saturation 95%. Able to achieve 500-750 mL on incentive spirometry. Strong cough. CARDIOVASCULAR: S1, S2 present. Regular rate and rhythm, sinus rhythm on telemetry. Sternum stable. Palpable peripheral pulses bilaterally. Trace generalized edema present. No calf pain or tenderness noted. Heart hugger in place with patient demonstrating appropriate use. Antiembolism stockings, SCDs present. GASTROINTESTINAL: Abdomen soft, nontender, nondistended. Active bowel sounds present 4 quadrants. Tolerating diet. Positive flatus GENITOURINARY: Continues to void clear, yellow urine. Output 1850 mL in the last 24 hours INTEGUMENTARY: Skin is warm and dry with evidence of good perfusion. Anterior chest incision well approximated and covered with dry intact dressing. NEUROLOGIC: Cranial nerves II through XII intact MUSKULOSKELETAL: Able to move all extremities, strength equal bilaterally, gait normal PSYCHIATRIC: Alert and oriented to person place and time, appropriate affect, intact judgment and insight INVASIVE LINES AND TUBES: A/V epicardial pacemaker wires present, grounded. - Allied health notes Allied health notes reviewed: nursing - Labs CBC & Chem 7: 03/21/21 04:29 03/21/21 04:29 Labs: Abnormal Lab Results - Last 24 Hours (Table) 03/20/21 03/20/21 03/21/21 Range/Units 16:00 20:54 04:29 RBC 2.53 L (3.80-5.40) m/uL Hgb 7.5 L (11.4-16.0) gm/dL Hct 23.4 L (34.0-46.0) % Plt Count 131 L (150-450) k/uL Sodium (137-145) mmol/L Glucose (74-99) mg/dL POC Glucose (mg/dL) 106 H 127 H (75-99) mg/dL Calcium (8.4-10.2) mg/dL AST (14-36) U/L ALT (4-34) U/L Total Protein (6.3-8.2) g/dL Albumin (3.5-5.0) g/dL 03/21/21 03/21/21 Range/Units 04:29 06:56 RBC (3.80-5.40) m/uL Hgb (11.4-16.0) gm/dL Hct (34.0-46.0) % Plt Count (150-450) k/uL Sodium 134 L (137-145) mmol/L Glucose 107 H (74-99) mg/dL POC Glucose (mg/dL) 104 H (75-99) mg/dL Calcium 7.9 L (8.4-10.2) mg/dL AST 82 H (14-36) U/L ALT 60 H (4-34) U/L Total Protein 4.9 L (6.3-8.2) g/dL Albumin 2.8 L (3.5-5.0) g/dL - Imaging and Cardiology Chest x-ray: report reviewed, image reviewed Assessment and Plan Assessment: 1. Ascending aortic aneurysm, status post supra coronary ascending aortic replacement 2. Large patent foramen ovale with spontaneous [id number] shunt, status post closure of PFO 3. Hypertension 4. Hyperlipidemia, treated, cholesterol 167, LDL 86, triglycerides 204 5. Previous tobacco dependence 6. Mild COPD with preoperative FEV1 67% of predicted and DLCO of 51% of predicted 7. ETOH use 2-7 drinks weekly 8. History of breast cancer status post radical right mastectomy 9. Paroxysmal vertigo 10. Family history of premature coronary artery with father from [place] at 54 years old 11. Vaccinated against Covid. 12. Postoperative acute blood loss anemia and thrombocytopenia, expected Plan: 1. Continue aspirin, statin, Plavix, beta silvestre therapy. Will increase beta silvestre therapy as tolerated, increased to 25 mg TID today. Continue Cozaar for afterload reduction 2. Encourage incentive spirometry 10 times every hour while awake. Bronchodilators per pulmonology 3. Increase activity, ambulate as tolerated. PT/OT/cardiac rehab following. First post op shower today 4. GI/DVT prophylaxis 5. Will monitor daily labs and chest x-rays. Electrolyte replacement per protocol. Will give 20 mg IVP lasix x 1 today 6. Pain control with current medication regimen 7. Insulin management per primary care service. Patient is not diabetic, recent hemoglobin A1c 6.2%, does need tight blood sugar control to promote sternal union and prevent infection 8. Epicardial pacemaker wires discontinued without incident. ABR for 1 hour post wire removal 9. Strict accurate intake and output. Daily weights. 10. Transfer orders placed for [address] [facility] cardiac stepdown unit, may tranfer when bed available 11. Discharge planning in place. Anticipate discharge to home with home care in the next 24 hours 12. More recommendations to follow as patient progresses Time with Patient: Greater than 30
[2021-03-21] MEDS ORDERED: CALCIUM GLUCONATE 1 GM in SODIUM CHLORIDE 0.9% 100 ML IVPB ONE (08:53)
[2021-03-21] MEDS: ATORVASTATIN 40 MG TAB PO SCH (09:01)
[2021-03-21] MEDS: CHOLECALCIFEROL 25 MCG (1000 IU) TABLET PO SCH (09:01)
[2021-03-21] MEDS: ASCORBIC ACID 500 MG TAB PO SCH (09:01)
[2021-03-21] MEDS: ASPIRIN 81 MG PO SCH (09:01)
[2021-03-21] MEDS: CLOPIDOGREL 75 MG TAB PO SCH (09:01)
[2021-03-21] MEDS: METOPROLOL TARTRATE 25 MG TAB PO SCH ×3 (09:07→21:02)
[2021-03-21] MEDS: IPRATROPIUM-ALBUTEROL 3 ML NEB INHALATION SCH ×4 (09:54→20:32)
--- NOTE | 2021-03-21 13:06 | P.PN ---
Subjective Patient is doing well today. She does not have any complaints. Blood glucose well controlled. Objective - Vital Signs Vital signs: Vital Signs Temp 97.8 F 03/21/21 04:00 Pulse 73 03/21/21 04:00 Resp 18 03/21/21 04:00 BP 103/47 03/21/21 04:00 Pulse Ox 95 03/21/21 04:00 Intake & Output 03/20/21 03/21/21 03/21/21 18:59 06:59 18:59 Intake Total 922 540 240 Output Total 1150 700 500 Balance -228 -160 -260 Weight 88.1 kg Intake: Oral 922 540 240 Output: Urine 1150 700 500 Other: Voiding Method Toilet Toilet Bedside Commode Bedside Commode ABP, PAP, CO, CI - Last Documented Arterial Blood Pressure 110/51 Pulmonary Artery Pressure 28/12 Cardiac Output 4.5 Cardiac Index 2.3 - Exam General: The patient is awake and alert, in no distress Eye: there is normal conjunctiva bilaterally. Neck: The neck is supple, there is no JVD. Cardiovascular: Normal S1-S2, no S3-S4, no murmurs. Respiratory: Lungs clear to auscultation bilaterally Gastrointestinal: Abdomen is soft, nontender Musculoskeletal: There is no pedal edema. Neurological:. Speech is normal. Skin: Skin is warm and dry - Labs CBC & Chem 7: 03/21/21 04:29 03/21/21 04:29 Labs: Abnormal Lab Results - Last 24 Hours (Table) 03/20/21 03/20/21 03/21/21 Range/Units 16:00 20:54 04:29 RBC 2.53 L (3.80-5.40) m/uL Hgb 7.5 L (11.4-16.0) gm/dL Hct 23.4 L (34.0-46.0) % Plt Count 131 L (150-450) k/uL Sodium (137-145) mmol/L Glucose (74-99) mg/dL POC Glucose (mg/dL) 106 H 127 H (75-99) mg/dL Calcium (8.4-10.2) mg/dL AST (14-36) U/L ALT (4-34) U/L Total Protein (6.3-8.2) g/dL Albumin (3.5-5.0) g/dL 03/21/21 03/21/21 Range/Units 04:29 06:56 RBC (3.80-5.40) m/uL Hgb (11.4-16.0) gm/dL Hct (34.0-46.0) % Plt Count (150-450) k/uL Sodium 134 L (137-145) mmol/L Glucose 107 H (74-99) mg/dL POC Glucose (mg/dL) 104 H (75-99) mg/dL Calcium 7.9 L (8.4-10.2) mg/dL AST 82 H (14-36) U/L ALT 60 H (4-34) U/L Total Protein 4.9 L (6.3-8.2) g/dL Albumin 2.8 L (3.5-5.0) g/dL Assessment and Plan Assessment: 1. Postoperative day #4 status post ascending aortic graft replacement for underlying ascending aortic aneurysm 2. Hyperlipidemia on Lipitor, LDL 86 3. Underlying COPD with no evidence of exacerbation 4. Anemia and thrombocytopenia, postoperative. Monitor CBC closely. Platelet count improving Today, I reviewed her medication list and lab work results. Most management per primary team Continue current regimen otherwise I will continue to follow up on the patient closely with you.
--- NOTE | 2021-03-21 13:24 | P.PN ---
Subjective Progress Note Date: 03/21/21 Principal diagnosis: POD #1 Supra coronary ascending aortic replacement with 32 mm gelweave graft, closure of PFO, exclusion of left atrial appendage with 35 mm Atriclup, introperative transesophageal echocardiogram This is a 65-year-old female with ascending aortic aneurysm, patient underwent repair of the aneurysm today, her last cardiac catheterization on 02/26 showed no evidence of significant coronary artery disease. Patient had her surgery done earlier today electively by , patient was evaluated in the ICU while on mechanical ventilation. She is presently sedated, on Precedex, but arousable, and she is on assist control rate of 16, tidal volume is 400, FiO2 50% and PEEP of 5. ABG showed a pO2 of 102 pCO2 of 40 pH of 7.38. Chest x-ray is basically unremarkable. Hence I would likely proceed to weaning as per protocol, patient would likely be weaned and extubated shortly. Patient is not requiring any pressors, she is only on insulin drip at 3.5 units per hour, she is also on Precedex which is being tapered down and to be discontinued. Patient was reevaluated today on 03/18/2021, I saw the patient on consultation yesterday, and shortly after my evaluation, patient was extubated and tolerated the extubation well. She is now doing well, she is on 5 L nasal cannula, sitting at a bedside chair, she is on Klonopin, 2 mg/h, and no other drips. Patient has blood pressure of 147/47, cardiac output is 4.5 cardiac index is 2.3 CVP is 8 pulmonary pressure is 25/11. Continues to have right-sided chest tube drained 1 80 mL overnight, left-sided chest tube drained 3 20 mL overnight, and mediastinal chest tube drained 400 mL overnight. Chest x-ray showed minimal bibasilar atelectasis, no evidence of congestive heart failure. Overall the pat ient is doing great, she is not requiring any pressors, not requiring any inotropes. Again the patient is postoperative day #1, status post ascending aortic aneurysm repair. On 03/19/2021 patient seen in follow-up in the intensive care unit, today is postoperative day #2, status post supra coronary ascending aortic replacement using a 32 mm Gelweave graft, closure of the patent cooney ov[place], and exclusion of the left atrial appendage and intraoperative transesophageal echocardiogram and if the aortic scanning. She is awake alert, in no acute distress, she said to him in the recliner, her pulse ox is 90% on 6 L, yesterday she was having pain control issues, she feels that her pain is better controlled today, she is breathing easier, however her incentive spirometer effort is still suboptimal and she is only achieving 500 mL on it although her effort is fair, and she is trying to be compliant in doing that as much as possible. Chest x-ray today shows mild cardiomegaly, retrocardiac infiltrate correlate with atelectasis. Patient still has right and left chest tubes. Mediastinal chest tubes have beenDiscontinued. Right-sided chest tube has produced 330 mL of serosanguineous output in the last 24 hours, left pleural chest tube with 340 mL of output in last 24 hours. [place] catheter is in place, patient is producing 20-25-30 mL of urine every hour. She is currently remains on 0.9 normal saline every 30 mL per hour, and insulin infusion is at 2 units per hour. She is hemodynamically stable, not on any vasopressor support, in sinus mechanism with a rate of 83 bpm. Her [place] catheter has been discontinued. incision chest tube incisions are clean dry and intact. She continues on metoprolol at 25 mg twice daily, she is on breathing treatments, she is on subcu heparin 5000 units every 8 hours, she was given a dose of Lasix 20 mg IV push per CT surgery today. She is tolerating a heart healthy diet. Today's labs have been reviewed, white blood cell count is 13.1, hemoglobin is 9.4, platelet count is 111, sodium is 131, potassium is 4.7, chloride is 105, CO2 is 19, B1 is 9 creatinine 0.65 The patient is seen today 03/20/2021 in follow-up in the intensive care unit. She is currently sitting up in a chair at the bedside. Awake and alert in no acute distress. Postoperative day #3. She is maintaining O2 saturations in the 90s on 4 L/m per nasal cannula. She is pulling still only proximally 500-750 MLS on her incentive spirometry. No IV fluids. Remaining in sinus rhythm. Left chest tube remains in place with 200 mL out the past 24 hours, right-sided chest tube in place with 200 mL past 24 hours. Her pain is better controlled with [place]. Chest x-ray reveals mild patchy bibasilar opacities/atelectasis. White count 10.3. Hemoglobin 8.3. Platelet count 108. Sodium 133. Potassium 4.4. Creatinine 0.76. Glucose 127. AST 43. ALT 19. She remains on bronchodilators. Heparin for DVT prophylaxis. Reevaluated today on 03/21/2021, patient remains in the ICU, she is postoperative day #4. Doing great, she is on Coumadin, all her tubes and lines have been discontinued. Patient is sitting in a bedside chair, in no distress whatsoever. Chest x-ray is reassuring. CBC is relatively normal hemoglobin however is 7.5, lites are normal renal profile is normal. Patient is doing better with her incentive spirometry. She is on room air and over sessions 95%. Objective - Vital Signs Vital signs: Vital Signs Temp 97.8 F 03/21/21 04:00 Pulse 73 03/21/21 04:00 Resp 18 03/21/21 04:00 BP 103/47 03/21/21 04:00 Pulse Ox 95 03/21/21 04:00 Intake & Output 03/20/21 03/21/21 03/21/21 18:59 06:59 18:59 Intake Total 922 540 240 Output Total 1150 700 500 Balance -228 -160 -260 Weight 88.1 kg Intake: Oral 922 540 240 Output: Urine 1150 700 500 Other: Voiding Method Toilet Toilet Bedside Commode Bedside Commode ABP, PAP, CO, CI - Last Documented Arterial Blood Pressure 110/51 Pulmonary Artery Pressure 28/12 Cardiac Output 4.5 Cardiac Index 2.3 - Exam CONSTITUTIONAL: Revealed a 65-year-old female in no distress. On room air. RESPIRATORY: Symmetrical chest expansion, slightly diminished breath sounds at the bases no rhonchi no wheezes CARDIOVASCULAR: Normal S1 and S2, no S3 gallop. GASTROINTESTINAL: Obese, Soft nontender no megaly no rebound NEUROLOGIC: Alert oriented 3 no gross deficits. MUSKULOSKELETAL: No deformity, no limitation in range of motion PSYCHIATRIC: Normal mood affect and normal mental status examination. - Labs CBC & Chem 7: 03/21/21 04:29 03/21/21 04:29 Labs: Abnormal Lab Results - Last 24 Hours (Table) 03/20/21 03/20/21 03/21/21 Range/Units 16:00 20:54 04:29 RBC 2.53 L (3.80-5.40) m/uL Hgb 7.5 L (11.4-16.0) gm/dL Hct 23.4 L (34.0-46.0) % Plt Count 131 L (150-450) k/uL Sodium (137-145) mmol/L Glucose (74-99) mg/dL POC Glucose (mg/dL) 106 H 127 H (75-99) mg/dL Calcium (8.4-10.2) mg/dL AST (14-36) U/L ALT (4-34) U/L Total Protein (6.3-8.2) g/dL Albumin (3.5-5.0) g/dL 03/21/21 03/21/21 Range/Units 04:29 06:56 RBC (3.80-5.40) m/uL Hgb (11.4-16.0) gm/dL Hct (34.0-46.0) % Plt Count (150-450) k/uL Sodium 134 L (137-145) mmol/L Glucose 107 H (74-99) mg/dL POC Glucose (mg/dL) 104 H (75-99) mg/dL Calcium 7.9 L (8.4-10.2) mg/dL AST 82 H (14-36) U/L ALT 60 H (4-34) U/L Total Protein 4.9 L (6.3-8.2) g/dL Albumin 2.8 L (3.5-5.0) g/dL Assessment and Plan Assessment: Impression: Status post ascending aortic aneurysm repair, postoperative day #4 History of hypertension. Dyslipidemia Ex-smoker, mild COPD, FEV1 of 67%, History of breast cancer and previous right radical mastectomy Family history of premature coronary artery disease. Postoperative acute blood loss anemia, expected. Recommendation: Continue cardiac meds including Plavix aspirin and beta blockers continue incentive spirometer continue GI prophylaxis Ambulate as tolerated. Likely transfer out of the ICU to a monitored bed on selective today. We'll continue to follow. Time with Patient: Less than 30
[2021-03-21 17:00] LABS: Glucose,Whole Blood 99 mg/dL (75-99)
[2021-03-21] MEDS: FERROUS SULFATE 325 MG TAB PO SCH (18:01)
[2021-03-21] MEDS: LOSARTAN 25 MG TAB PO SCH (18:01)
[2021-03-21 20:50] LABS: Glucose,Whole Blood 113 mg/dL (75-99)
[2021-03-21] MEDS: SENNOSIDES-DOCUSATE SODIUM 1 EACH TAB PO SCH (21:02)
[2021-03-21] MEDS: ACETAMINOPHEN TAB 325 MG TAB PO PRN (22:40)
[2021-03-21 23:30] VITALS: RESP 18
[2021-03-22] MEDS: NOREPINEPHRINE 4 MG in SODIUM CHLORIDE 0.9% 250 ML IV SCH (01:44)
[2021-03-22 06:06] LABS: Glucose,Whole Blood 100 mg/dL (75-99)
[2021-03-22] MEDS: INSULIN ASPART (NovoLOG) 100 UNIT/ML VIAL SQ SCH ×2 (06:06→11:39)
[2021-03-22] MEDS: FERROUS SULFATE 325 MG TAB PO SCH (06:47)
[2021-03-22] MEDS: PANTOPRAZOLE 40 MG TABLET PO SCH (06:47)
--- NOTE | 2021-03-22 07:48 | XR ---
EXAMINATION TYPE: XR chest 2V DATE OF EXAM: 03/22/2021 COMPARISON: Chest x-ray 03/21/2021 HISTORY: Post cardiac surgery TECHNIQUE: Frontal and lateral views of the chest are obtained. FINDINGS: Patient is post median sternotomy and left atrial appendage clip placement. Patient is rot ated, there are overlying leads. There is no evident pneumothorax. Blunting of the left costophrenic angle, basilar patchy density persists bilaterally. Cardiac mediastinal silhouette is stable. IMPRESSION: Probable basilar atelectasis, difficult to exclude small effusion
[2021-03-22] MEDS: IPRATROPIUM-ALBUTEROL 3 ML NEB INHALATION SCH (08:36)
[2021-03-22] MEDS ORDERED: FUROSEMIDE 20 MG TAB PO SCH (09:00)
[2021-03-22 09:22] LABS: HCT 26.9 % (34.0-46.0); HGB 8.4 gm/dL (11.4-16.0); MCH 29.5 pg (25.0-35.0); MCHC 31.2 g/dL (31.0-37.0); MCV 94.4 fL (80.0-100.0); Mean Platelet Volume 8.7; Platelet Count 204 k/uL (150-450); RBC 2.85 m/uL (3.80-5.40); RDW 13.5 % (11.5-15.5); WBC 8.6 k/uL (3.8-10.6)
[2021-03-22] MEDS: CLOPIDOGREL 75 MG TAB PO SCH (09:33)
[2021-03-22] MEDS: HEPARIN SODIUM,PORCINE/PF 5,000 UNIT/0.5 ML SYRINGE SQ SCH (09:33)
[2021-03-22] MEDS: ASPIRIN 81 MG PO SCH (09:33)
[2021-03-22] MEDS: ASCORBIC ACID 500 MG TAB PO SCH (09:33)
[2021-03-22] MEDS: ATORVASTATIN 40 MG TAB PO SCH (09:33)
[2021-03-22] MEDS: METOPROLOL TARTRATE 25 MG TAB PO SCH (09:33)
[2021-03-22] MEDS: CHOLECALCIFEROL 25 MCG (1000 IU) TABLET PO SCH (09:33)
[2021-03-22 09:45] LABS: ALT 72 U/L (4-34); AST 91 U/L (14-36); African American GFR (CKD) >90 (>60 ml/min/1.73 sqM); Albumin 3.2 g/dL (3.5-5.0); Alkaline Phosphatase 89 U/L (38-126); Anion Gap 13 mmol/L; Blood Urea Nitrogen 10 mg/dL (7-17); Calcium 8.5 mg/dL (8.4-10.2); Carbon Dioxide 23 mmol/L (22-30); Chloride 100 mmol/L (98-107); Glucose 151 mg/dL (74-99); Non-African American GFR(CKD) 90 (>60 ml/min/1.73 sqM); Potassium 3.5 mmol/L (3.5-5.1); Sodium 136 mmol/L (137-145); Total Protein 5.6 g/dL (6.3-8.2)
[2021-03-22 09:50] VITALS: BP 112/51; PULSE 87; TEMP 97.7
--- NOTE | 2021-03-22 10:39 | P.DS ---
Providers Date of admission: 03/17/21 05:41 Expected date of discharge: 03/22/21 Attending physician: Nicol Leger Consults: 03/17/21 14:16 Consult Physician Routine Consulting Provider: Stephie Estrada Consult Reason/Comments: medical management Do you want consulting provider notified?: Yes Consult Physician Routine Consulting Provider: Jonna Astudillo Consult Reason/Comments: Filing Machine Operator Consult: post cardiac surgery Do you want consulting provider notified?: Yes Consult Physician Routine Consulting Provider: Jim Hernandez Consult Reason/Comments: Optical Laboratory Manager Consult: post cardiac surgery Do you want consulting provider notified?: Yes Primary care physician: Alessandro Costello [place] [facility] Course: FINAL DIAGNOSIS: 1. Ascending aortic aneurysm, status post supra coronary ascending aortic replacement 2. Large patent foramen ovale with spontaneous [id number] shunt, status post closure of PFO 3. Hypertension 4. Hyperlipidemia, treated, cholesterol 167, LDL 86, triglycerides 204 5. Previous tobacco dependence 6. Mild COPD with preoperative FEV1 67% of predicted and DLCO of 51% of predicted 7. ETOH use 2-7 drinks weekly 8. History of breast cancer status post radical right mastectomy 9. Paroxysmal vertigo 10. Family history of premature coronary artery with father from [place] at 54 years old 11. Vaccinated against Covid. 12. Postoperative acute blood loss anemia and thrombocytopenia, expected PRINCIPAL PROCEDURE: 1. Supra coronary ascending aortic replacement with a 32 mm Gelweave graft. 2. Closure of PFO. 3. Exclusion of the left atrial appendage with a 35 mm Atriclip 4. Intraoperative transesophageal echocardiogram. 5. Intraoperative epi-aortic scanning. HISTORY OF PRESENT ILLNESS: This is a 65-year-old female patient who is followed by Dr. Alessandro Costello on an outpatient basis for her primary care services. She also follows with Dr. Hernandez from [facility] for her cardiac care. Recently, on follow-up with her primary care service she underwent a low-dose computed tomography scan of her chest due to her smoking history which revealed a thoracic aortic aneurysm at 5.3 cm. Due to the findings on her computed tomography scan of her chest she was referred to Dr. Nicol Leger from cardiothoracic surgery for further evaluation and treatment recommendations. Fitz Leger met with the patient, reviewed the findings on her computed tomography scan of her chest, discussed treatment options including ascending aortic replacement. Risks and benefits of the surgical procedure were discussed and knowing and understanding these risks the patient wished to proceed with the surgical option. HOSPITAL COURSE: The patient was brought to the hospital on 03/17/2021, taken to the preoperative area, prepared in the usual fashion and subsequently taken to the operating room where Dr. Nicol Leger performed a supra coronary ascending aortic replacement with a 32 mm Gelweave graft, exclusion of the left atrial appendage with a 35 mm Atriclip, an intraoperative transesophageal echocardiogram and epi-aortic scanning. Upon completion of the surgery the patient was transferred to the cardiovascular intensive care unit where she was recovered and monitored hemodynamically. She was extubated, all lines, tubes and supportive drips were discontinued when appropriate and she was transferred to the cardiac stepdown unit for further monitoring and rehabilitation. Her oxygen was titrated down, she continued to work with physical, occupational therapy and cardiac rehab, she was tolerating an oral diet, her pain was well controlled and she was ready to be discharged home with [facility] on postoperative day #5. She has received written and verbal instructions regarding her medications, activity restrictions, signs and symptoms requiring physician notification and her follow-up appointments. Plan - Discharge Summary Discharge Rx Participant: No New Discharge Prescriptions: New Ferrous Sulfate [Iron (65 MG Elemental)] 325 mg PO BID-W/MEALS #60 tab Furosemide [Lasix] 20 mg PO DAILY #7 tab Clopidogrel [Plavix] 75 mg PO DAILY #30 tab Aspirin 81 mg PO DAILY #30 tab Losartan [Cozaar] 25 mg PO DAILY@1200 #30 tab Metoprolol Tartrate [Lopressor] 25 mg PO TID #90 tab Pantoprazole [Protonix] 40 mg PO AC-BRKFST #30 tab Acetaminophen Tab [Tylenol] 650 mg PO Q6HR PRN tab PRN Reason: Mild Pain or Fever > 38.3 C Continue Rosuvastatin Calcium [Crestor] 2.5 mg PO HS Zinc 25 mg PO Q2D Ascorbic Acid [Vitamin C] 1,000 mg PO DAILY Cholecalciferol [Vitamin D3 (25 Mcg = 1000 Iu)] 25 mcg PO DAILY Albuterol Inhaler [Ventolin Hfa Inhaler] 2 puff INHALATION BID [place]-3 Fatty Acids [[place]-3] 600 mg PO DAILY Glucos Sul 2Kcl/MSM/Chond/C/Mn [Glucosamine Chondroitin Cap] 1 each PO DAILY Fish Oil/Dha/Epa [Fish Oil 1,200 mg Fish Oil] 1 each PO DAILY Ipratropium [place] 0.06%Nasal [Atrovent Nasal 0.06%] 2 spray EA NOSTRIL BID PRN PRN Reason: allergies Discontinued Metoprolol Succinate (ER) [Toprol XL] 25 mg PO HS Discharge Medication List Rosuvastatin Calcium [Crestor] 2.5 mg PO HS 04/15/18 [History] Ascorbic Acid [Vitamin C] 1,000 mg PO DAILY 02/20/21 [History] Ipratropium [place] 0.06%Nasal [Atrovent Nasal 0.06%] 2 spray EA NOSTRIL BID PRN 02/20/21 [History] Zinc 25 mg PO Q2D 02/20/21 [History] Albuterol Inhaler [Ventolin Hfa Inhaler] 2 puff INHALATION BID 03/11/21 [History] Cholecalciferol [Vitamin D3 (25 Mcg = 1000 Iu)] 25 mcg PO DAILY 03/11/21 [History] Fish Oil/Dha/Epa [Fish Oil 1,200 mg Fish Oil] 1 each PO DAILY 03/11/21 [History] Glucos Sul 2Kcl/MSM/Chond/C/Mn [Glucosamine Chondroitin Cap] 1 each PO DAILY 03/11/21 [History] [place]-3 Fatty Acids [[place]-3] 600 mg PO DAILY 03/11/21 [History] Acetaminophen Tab [Tylenol] 650 mg PO Q6HR PRN tab 03/22/21 [Rx] Aspirin 81 mg PO DAILY #30 tab 03/22/21 [Rx] Clopidogrel [Plavix] 75 mg PO DAILY #30 tab 03/22/21 [Rx] Ferrous Sulfate [Iron (65 MG Elemental)] 325 mg PO BID-W/MEALS #60 tab 03/22/21 [Rx] Furosemide [Lasix] 20 mg PO DAILY #7 tab 03/22/21 [Rx] Losartan [Cozaar] 25 mg PO DAILY@1200 #30 tab 03/22/21 [Rx] Metoprolol Tartrate [Lopressor] 25 mg PO TID #90 tab 03/22/21 [Rx] Pantoprazole [Protonix] 40 mg PO AC-BRKFST #30 tab 03/22/21 [Rx] Follow up Appointment(s)/Referral(s): Jonna Astudillo MD [STAFF PHYSICIAN] - 04/03/21 3:15 pm Graciela You NPC [Nurse Practitioner] - 03/28/21 10:30 am (Appointment will be in the surgeon's office behind the hospital at [facility], [address], [address]) Rehab [facility] ,Cardiac [NON-STAFF] - 4 Weeks (You will be called in approximately 4-6 weeks for evaluation for cardiac rehab) Jim Hernandez MD [STAFF PHYSICIAN] - 04/07/21 4:15 pm (Appointment will be at the [place] office with JAGUAR Carlisle) Nicol Leger MD [STAFF PHYSICIAN] - 04/18/21 10:00 am Alessandro Costello MD [Primary Care Provider] - 03/25/21 1:45 pm [facility], [NON-STAFF] - [address],[place] [NON-STAFF] - As Needed (Contact if wanting to obtain a THE NOCKLIST shower chair. ) Ambulatory/Diagnostic Orders: Complete Blood Count w/diff [LAB.AMB] Time Frame: 03/25/21, Facility: [facility], Location: [facility] Comprehensive Metabolic Panel [LAB.AMB] Time Frame: 03/25/21, Facility: [facility], Location: [facility] Activity/Diet/Wound Care/Special Instructions: DISCHARGE INSTRUCTIONS: 1. No driving for 4 weeks, or until physician gives their ok. 2. The patient should sleep in their own bed, no medical bed needed. 3. Stairs are not an issue. If the bedroom is upstairs, it is advised that the patient go up at night and down in the morning for the first week. Go slowly, using handrail and take 1 step at a time. 4. CHICO hose are to be worn for 30 days or until physician discontinues. 5. Heart hugger is to be worn 100% of the time until physician discont inues.(except when showering) 6. No lifting, pushing, or pulling more than 10 pounds for 12 weeks. The physician will advise of any restriction changes. 7. The patient is expected to continue the prescribed walking program. 8. Continue pain control per as needed orders. 9. Continue with incentive spirometry and splinting/heart hugger until otherwise directed by the physician. 10. Must shower daily using liquid antibacterial soap and a separate white washcloth for each individual incision. 11. Routine sternal incision care. No powders, lotions, ointments on incisions. No dressings are necessary on incisions unless they are draining. Dermabond tape is to remain on sternal incision until surgeon follow-up. 12. Please call surgeon/FIELD MERCHANDISER for temp greater than 101 F or purulent drainage from incisions. 13. All prescriptions given by surgeon for 30 days. Refills need to be filled through retail equipment associate/primary care physician. 14. A Red armband has been placed on the patient. It should be worn for 30 days post surgery and will be removed by the cardiac surgeons. If an ER visit is necessary, please make sure the number on the Red armband is called. 15. You have been referred to and are expected to begin Cardiac Rehab in approximately 4-6 weeks. HOME HEALTH SERVICES TO PROVIDE: RN SKILLED HOME CARE SERVICES FOR POST-OP SURGICAL PATIENTS WITH THE FOLLOWING: Coronary Artery Bypass Surgery (CABG), Mitral Valve Replacement/Repair ( MVR), Aortic Valve Replacement/Repair (AVR) RN TO CONTINUE EDUCATION FROM ``ROAD TO A HEALTH HEART PATIENT EDUCATION MANUAL (GIVEN TO PATIENT IN THE HOSPITAL) MEDICATION RECONCILIATION WITH EDUCATION NEEDED ON FIRST HOME VISIT EMPHASIZE IMPORTANCE OF WEARING BREAST SUPPORT/HEART HUGGER ENCOURAGE USE OF INCENTIVE SPIROMETER 10 X EVERY HOUR WHILE AWAKE ENCOURAGE UTILIZATION OF LOWER EXTREMITY COMPRESSION STOCKINGS/CHICO HOSE and ELEVATE LEGS ABOVE LEVEL OF HEART WHILE AT REST. ENCOURAGE AMBULATION 3-5x/day INCREASING TOLERATES, WHILE AVOIDING EXTREMES IN TEMPERATURE FREQUENCY: RN TO OPEN THE PATIENT WITHIN 24 HOURS OF DISCHARGE FROM THE HOSPITAL WITH TELEHEALTH INSTALLED AT [facility] [place], RN TO VISIT 2-3 X A WEEK FOR 4 WEEKS ESTABLISHED BY PATIENT NEEDS. LABORATORY: CBC, CMP TO BE DRAWN ON THE THIRD DAY HOME, (RAN STAT) FAX RESULTS TO [phone]. TELEHEALTH PARAMETERS: WEIGHT: NOTIFY MD OF WEIGHT GAIN OF 2 LBS IN 24 HOURS OR 5 LBS IN ONE WEEK HR: NOTIFY MD OF HR <55 BPM OR HR>100 BPM BP: NOTIFY MD IF BP <90/55 OR BP>140/100 O2 SAT: NOTIFY MD IF PO2<93% ON ROOM AIR SEND TELEHEALTH REPORT TO SPECIAL EVENT ASSISTANT AND CARDIOVASCULAR SURGEON THE FIRST WEEK OF CARE AND THEN BI-WEEKLY. PLEASE ADDITIONALLY COMMUNICATE ANY ABNORMALS AND NEW FINDINGS TO THE SURGEONS OFFICE. Discharge Disposition: HOME WITH HOME HEALTH SERVICES
--- NOTE | 2021-03-22 11:24 | P.PN ---
Subjective Patient is doing well today. She is looking forward to be discharged home. Chest tube discontinued yesterday uneventfully. Objective - Vital Signs Vital signs: Vital Signs Temp 97.7 F 03/22/21 09:50 Pulse 87 03/22/21 09:50 Resp 18 03/22/21 09:50 BP 112/51 03/22/21 09:50 Pulse Ox 95 03/22/21 09:50 Intake & Output 03/21/21 03/22/21 03/22/21 18:59 06:59 18:59 Intake Total 840 120 Output Total 1100 Balance -260 120 Weight 88.2 kg Intake: Oral 840 120 Output: Urine 1100 Other: Voiding Method Toilet Toilet Toilet Bedside Commode # Voids 1 ABP, PAP, CO, CI - Last Documented Arterial Blood Pressure 110/51 Pulmonary Artery Pressure 28/12 Cardiac Output 4.5 Cardiac Index 2.3 - Exam General: The patient is awake and alert, in no distress Eye: there is normal conjunctiva bilaterally. Neck: The neck is supple, there is no JVD. Cardiovascular: Normal S1-S2, no S3-S4, no murmurs. Respiratory: Lungs clear to auscultation bilaterally Gastrointestinal: Abdomen is soft, nontender Musculoskeletal: There is no pedal edema. Neurological:. Speech is normal. Skin: Skin is warm and dry - Labs CBC & Chem 7: 03/22/21 08:47 03/22/21 08:47 Labs: Abnormal Lab Results - Last 24 Hours (Table) 03/21/21 03/22/21 03/22/21 Range/Units 20:49 06:03 08:47 RBC 2.85 L (3.80-5.40) m/uL Hgb 8.4 L (11.4-16.0) gm/dL Hct 26.9 L (34.0-46.0) % Sodium (137-145) mmol/L Glucose (74-99) mg/dL POC Glucose (mg/dL) 113 H 100 H (75-99) mg/dL AST (14-36) U/L ALT (4-34) U/L Total Protein (6.3-8.2) g/dL Albumin (3.5-5.0) g/dL 03/22/21 Range/Units 08:47 RBC (3.80-5.40) m/uL Hgb (11.4-16.0) gm/dL Hct (34.0-46.0) % Sodium 136 L (137-145) mmol/L Glucose 151 H (74-99) mg/dL POC Glucose (mg/dL) (75-99) mg/dL AST 91 H (14-36) U/L ALT 72 H (4-34) U/L Total Protein 5.6 L (6.3-8.2) g/dL Albumin 3.2 L (3.5-5.0) g/dL Assessment and Plan Assessment: 1. Postoperative day #4 status post ascending aortic graft replacement for underlying ascending aortic aneurysm 2. Hyperlipidemia on Lipitor, LDL 86 3. Underlying COPD with no evidence of exacerbation 4. Anemia and thrombocytopenia, postoperative. Monitor CBC closely. Platelet count improving Today, I reviewed her medication list and lab work results. Continue current regimen otherwise Patient is medically stable for discharge home.
[2021-03-22] MEDS: LOSARTAN 25 MG TAB PO SCH (11:32)
--- NOTE | 2021-03-22 12:21 | P.PN ---
Subjective Progress Note Date: 03/22/21 Principal diagnosis: Status post ascending aortic aneurysm repair This is a 65-year-old female with ascending aortic aneurysm, patient underwent repair of the aneurysm today, her last cardiac catheterization on 02/26 showed no evidence of significant coronary artery disease. Patient had her surgery done earlier today electively by , patient was evaluated in the ICU while on mechanical ventilation. She is presently sedated, on Precedex, but arousable, and she is on assist control rate of 16, tidal volume is 400, FiO2 50% and PEEP of 5. ABG showed a pO2 of 102 pCO2 of 40 pH of 7.38. Chest x-ray is basically unremarkable. Hence I would likely proceed to weaning as per protocol, patient would likely be weaned and extubated shortly. Patient is not requiring any pressors, she is only on insulin drip at 3.5 units per hour, she is also on Precedex which is being tapered down and to be discontinued. Patient was reevaluated today on 03/18/2021, I saw the patient on consultation yesterday, and shortly after my evaluation, patient was extubated and tolerated the extubation well. She is now doing well, she is on 5 L nasal cannula, sitting at a bedside chair, she is on Klonopin, 2 mg/h, and no other drips. Patient has blood pressure of 147/47, cardiac output is 4.5 cardiac index is 2.3 CVP is 8 pulmonary pressure is 25/11. Continues to have right-sided chest tube drained 1 80 mL overnight, left-sided chest tube drained 3 20 mL overnight, and mediastinal chest tube drained 400 mL overnight. Chest x-ray showed minimal bibasilar atelectasis, no evidence of congestive heart failure. Overall the patient is doing great, she is not requiring any pressors, not requiring any inotropes. Again the patient is postoperative day #1, status post ascending a ortic aneurysm repair. On 03/19/2021 patient seen in follow-up in the intensive care unit, today is postoperative day #2, status post supra coronary ascending aortic replacement using a 32 mm Gelweave graft, closure of the patent cooney ovale, and exclusion of the left atrial appendage and intraoperative transesophageal echocardiogram and if the aortic scanning. She is awake alert, in no acute distress, she said to him in the recliner, her pulse ox is 90% on 6 L, yesterday she was having pain control issues, she feels that her pain is better controlled today, she is breathing easier, however her incentive spirometer effort is still suboptimal and she is only achieving 500 mL on it although her effort is fair, and she is trying to be compliant in doing that as much as possible. Chest x-ray today shows mild cardiomegaly, retrocardiac infiltrate correlate with atelectasis. Patient still has right and left chest tubes. Mediastinal chest tubes have beenDiscontinued. Right-sided chest tube has produced 330 mL of serosanguineous output in the last 24 hours, left pleural chest tube with 340 mL of output in last 24 hours. Palma catheter is in place, patient is producing 20-25-30 mL of urine every hour. She is currently remains on 0.9 normal saline every 30 mL per hour, and insulin infusion is at 2 units per hour. She is hemodynamically stable, not on any vasopressor support, in sinus mechanism with a rate of 83 bpm. Her Bronson-Baron catheter has been discontinued. incision chest tube incisions are clean dry and intact. She continues on metoprolol at 25 mg twice daily, she is on breathing treatments, she is on subcu heparin 5000 units every 8 hours, she was given a dose of Lasix [address] mg IV push per CT surgery today. She is tolerating a heart healthy diet. Today's labs have been reviewed, white blood cell count is 13.1, hemoglobin is 9.4, platelet count is 111, sodium is 131, potassium is 4.7, chloride is 105, CO2 is 19, B1 is 9 creatinine 0.65 The patient is seen today 03/20/2021 in follow-up in the intensive care unit. She is currently sitting up in a chair at the bedside. Awake and alert in no acute distress. Postoperative day #3. She is maintaining O2 saturations in the 90s on 4 L/m per nasal cannula. She is pulling still only proximally 500-750 ML S on her incentive spirometry. No IV fluids. Remaining in sinus rhythm. Left chest tube remains in place with 200 mL out the past 24 hours, right-sided chest tube in place with 200 mL past 24 hours. Her pain is better controlled with [place]. Chest x-ray reveals mild patchy bibasilar opacities/atelectasis. White count 10.3. Hemoglobin 8.3. Platelet count 108. Sodium 133. Potassium 4.4. Creatinine 0.76. Glucose 127. AST 43. ALT 19. She remains on bronchodilators. Heparin for DVT prophylaxis. Reevaluated today on 03/21/2021, patient remains in the ICU, she is postoperative day #4. Doing great, she is on Coumadin, all her tubes and lines have been discontinued. Patient is sitting in a bedside chair, in no distress whatsoever. Chest x-ray is reassuring. CBC is relatively normal hemoglobin however is 7.5, lites are normal renal profile is normal. Patient is doing better with her incentive spirometry. She is on room air and over sessions 95%. The patient is seen today 03/22/2021 in follow-up on the selective care unit. Postoperative day #5. She is currently sitting up in chair at the bedside. Awake and alert in no acute distress. Maintaining good O2 saturations in the mid 90s on room air. She's been afebrile. Hemodynamically stable. White count 8.6. Hemoglobin 8.4. Sodium 136. Potassium 3.5. Creatinine 0.72. AST 91. ALT 72. Objective - Vital Signs Vital signs: Vital Signs Temp 97.7 F 03/22/21 09:50 Pulse 87 03/22/21 09:50 Resp 18 03/22/21 09:50 BP 112/51 03/22/21 09:50 Pulse Ox 95 03/22/21 09:50 Intake & Output 03/21/21 03/22/21 03/22/21 18:59 06:59 18:59 Intake Total 840 120 Output Total 1100 Balance -260 120 Weight 88.2 kg Intake: Oral 840 120 Output: Urine 1100 Other: Voiding Method Toilet Toilet Toilet Bedside Commode # Voids 1 ABP, PAP, CO, CI - Last Documented Arterial Blood Pressure 110/51 Pulmonary Artery Pressure 28/12 Cardiac Output 4.5 Cardiac Index 2.3 - Exam GENERAL EXAM: Alert, very pleasant, 65-year-old female patient, sitting up in a recliner, on room air, comfortable in no apparent distress. HEAD: Normocephalic/atraumatic. EYES: Normal reaction of pupils, equal size. Conjunctiva pink, sclera white. NOSE: Clear with pink turbinates. THROAT: No erythema or exudates. NECK: No masses, no JVD, no thyroid enlargement, no adenopathy. CHEST: Sternal dressing dry and intact. Hugger in place. Symmetrical expansion. LUNGS: Equal air entry with faint crackles in the posterior bases CVS: Regular rate and rhythm, normal S1 and S2, no gallops, no murmurs, no rubs ABDOMEN: Soft, nontender. No hepatosplenomegaly, normal bowel sounds, no guarding or rigidity. EXTREMITIES: No clubbing, no edema, no cyanosis, 2+ pulses and upper and lower extremities. MUSCULOSKELETAL: Muscle strength and tone normal. SPINE: No scoliosis or deformity SKIN: No rashes CENTRAL NERVOUS SYSTEM: No focal deficits, tone is normal in all 4 extremities. PSYCHIATRIC: Alert and oriented -3. Appropriate affect. Intact judgment and insight. - Labs CBC & Chem 7: 03/22/21 08:47 03/22/21 08:47 Labs: Abnormal Lab Results - Last 24 Hours (Table) 03/21/21 03/22/21 03/22/21 Range/Units 20:49 06:03 08:47 RBC 2.85 L (3.80-5.40) m/uL Hgb 8.4 L (11.4-16.0) gm/dL Hct 26.9 L (34.0-46.0) % Sodium (137-145) mmol/L Glucose (74-99) mg/dL POC Glucose (mg/dL) 113 H 100 H (75-99) mg/dL AST (14-36) U/L ALT (4-34) U/L Total Protein (6.3-8.2) g/dL Albumin (3.5-5.0) g/dL 03/22/21 Range/Units 08:47 RBC (3.80-5.40) m/uL Hgb (11.4-16.0) gm/dL Hct (34.0-46.0) % Sodium 136 L (137-145) mmol/L Glucose 151 H (74-99) mg/dL POC Glucose (mg/dL) (75-99) mg/dL AST 91 H (14-36) U/L ALT 72 H (4-34) U/L Total Protein 5.6 L (6.3-8.2) g/dL Albumin 3.2 L (3.5-5.0) g/dL Assessment and Plan Assessment: 1 Ascending aortic aneurysm, status post supra coronary ascending aortic replacement, postoperative day #5 2 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 Patient also had left atrial appendage exclusion and intraoperative transesophageal echocardiogram 3 Acute hypoxic respiratory failure related to postoperative atelectasis, recovered and on room air 4 Hypertension 5 Hyperlipidemia 6 Mild COPD with preop FEV1 value of 67% of predicted 7 History of breast cancer status post radical right mastectomy 8 Acute postoperative acute blood loss anemia and thrombocytopenia, expected outcome of sternotomy surgery 9 Previous history of smoking Plan: The patient was seen and evaluated by Dr. Astudillo Chest x-ray and labs reviewed Cleared for discharge from the pulmonary standpoint Follow-up in the office in 1-2 weeks, we'll repeat a chest x-ray done I, the cosigning physician, performed a history & physical examination of the patient. Lungs sounds with crackles in the posterior bases. Maintaining good O2 saturations in the 90s on room air. I discussed the assessment and plan of care with my nurse practitioner, Lisa Baez. I attest to the above note as dictated by her.
--- NOTE | 2021-03-25 22:41 | CDI ---
Documentation Clarification Form Date: 03/25/2021 10:35:57 PM From: Sonia Edmond RN, CCDS Admit Date: 03/17/2021 05:41:00 AM Patient Name: Nuris Bradford Visit Number: [id number] Discharge Date: 03/22/2021 11:50:00 AM ATTENTION: The Clinical Documentation Specialists (CDI) and [facility] Coding Staff appreciate your assistance in clarifying documentation. Please respond to the clarification below the line at the bottom and electronically sign. The CDI & [facility] Coding staff will review the response and follow-up if needed. Please note: Queries are made part of the Legal Health Record. If you have any questions, please contact the author of this message via ITS. Dr. Nicol Leger Postoperative atelectasis is documented beginning 03/19 in the pulmonary progress notes, and patient had an ascending aorta replacement with closure of PFO in 03/17/2021]. Additional clarification is requested regarding the relationship, if any, that exists between the diagnosis and the procedure. Patients Admitting Diagnosis: Ascending aortic aneurysm, hyperlipidemia, moderate chronic obstructive pulmonary disease in an ex-smoker, hypertension, positional vertigo." Post-Operative Diagnosis: Ascending aortic aneurysm, hyperlipidemia, moderate chronic obstructive pulmonary disease in an ex-smoker, hypertension, and positional vertigo. Large patent Weathers ovale with a spontaneous [id number] shunt." Procedure Performed: "1.Supra coronary ascending aortic replacement using a 32 mm gel weave graft. 2. Closure of patent Weathers ovale. 3. Exclusion of the left atrial appendage using a 35 mm AtriClip. 4. Intraoperative transesophageal echocardiogram and epiaortic scanning." History/Risk Factors: COPD, Ex-smoker, emphysema, BPV Clinical Indicators: 03/18 CXR: "Mild cardiomegaly and low lung volumes with patchy bibasilar atelectasis and/or infiltrate remonstrated." 03/22 CXR: "Probable basilar atelectasis, difficult to exclude small effusion." 03/20 Pulmonary Progress Note: "Acute hypoxic respiratory failure related to postoperative atelectasis currently on 4 L/m per nasal cannula." 03/22 Pulmonary Progress Note: "Acute hypoxic respiratory failure related to postoperative atelectasis, recovered and on room air." 03/19 Cardiothoracic Surgery Progress note: "RESPIRATORY: Lungs sounds diminished bilaterally. Respirations even, nonlabored. Currently on 6 L high flow nasal cannula with oxygen saturation 90%. Able to achieve 500 mL on incentive spirometry. Weak cough." Treatment: Duoneb INH QID 03/19-03/22 Lasix 20 IVP QD IS Q 1 hr. while awake Early ambulation Oxygen titrated per O2 sats Continuous Pulse ox monitoring while in ICU What relationship, if any, exists between the diagnosis of Postoperative Atelectasis and the procedure? [ ] Postoperative atelectasis is a complication of surgical procedure [ x] Postoperative atelectasis is an expected outcome of the surgical procedure [ ] Postoperative atelectasis is related to patients co-morbid condition(s) of COPD, Emphysema, and history of smokiing & not a complication of the procedure [ ] Postoperative atelectasis has been ruled out [ ] Other please specify ____ [ ] Unable to determine (Template Last Revised: August 2020) MTDD
== END 2021-03-22 11:50 | disposition home health service (06) | DRG 219 ==
LOC: 2ORMAIN 05:41 → 2SICU 15:02 → 3SCARD 03-21 22:40
PROVIDERS: ADMIT Surgery; ATTEND Surgery
PROC: 02L70CK Occlusion of Left Atrial Appendage with Extraluminal Device, Open Approach (ICD-10-PCS; principal; 2021-03-17 08:00)
PROC: 5A1221Z Performance of Cardiac Output, Continuous (ICD-10-PCS; principal; 2021-03-17 08:00)
PROC: 02LR0ZT Occlusion of Ductus Arteriosus, Open Approach (ICD-10-PCS; principal; 2021-03-17 08:00)
PROC: 02RX0JZ Replacement of Thoracic Aorta, Ascending/Arch with Synthetic Substitute, Open Approach (ICD-10-PCS; principal; 2021-03-17 08:00)
PROC: B24BZZ4 Ultrasonography of Heart with Aorta, Transesophageal (ICD-10-PCS; 2021-03-17 08:00)
DX: I71.2 Thoracic aortic aneurysm, without rupture (principal); J96.01 Acute respiratory failure with hypoxia; D62 Acute posthemorrhagic anemia; Q21.1 Atrial septal defect; J98.11 Atelectasis; D69.6 Thrombocytopenia, unspecified; J43.9 Emphysema, unspecified; Z20.822 Contact with and (suspected) exposure to COVID-19; E87.6 Hypokalemia; E78.5 Hyperlipidemia, unspecified; I10 Essential (primary) hypertension; G47.33 Obstructive sleep apnea (adult) (pediatric); M19.90 Unspecified osteoarthritis, unspecified site; Z79.899 Other long term (current) drug therapy; Z85.3 Personal history of malignant neoplasm of breast; Z90.721 Acquired absence of ovaries, unilateral; Z90.11 Acquired absence of right breast and nipple; Z87.891 Personal history of nicotine dependence; Z87.42 Personal history of other diseases of the female genital tract; Z98.890 Other specified postprocedural states; Z71.3 Dietary counseling and surveillance; Z88.5 Allergy status to narcotic agent; Z82.49 Family history of ischemic heart disease and other diseases of the circulatory system
CPT/HCPCS: 71045; 71046; 74018; 80048; 80053; 82330; 82805; 83735; 84132; 85025; 85027; 85520; 85610; 85730; 86850; 86891; 86900; 86901; 86920; 87635; 94002; 94640

== ENCOUNTER → 2022-05-28 | Outpatient (CLI) | payer MEDICARE, BC ==
--- NOTE | 2022-05-29 13:36 | MM ---
Reason for Exam: Screening (asymptomatic). Last mammogram was performed 1 year(s) and 6 month(s) ago. Patient History: Menarche at age 12. First Full-Term at age 20. Right ovary removed at age 22. Postmenopausal. Patient used Hormonal Contraceptives for 10 years. Mastectomy on the Right side. Benign Excisional Biopsy on the left side. Excisional Biopsy on the Right side. Paternal aunt had breast cancer. Risk Values: Emma 5 year model risk: 2.0%. NCI Lifetime model risk: 7.4%. Prior Study Comparison: 11/30/2018 Screening Mammogram, Unknown. 03/07/2020 Screening Mammogram, Unknown. 12/11/2020 Bilateral Screening Mammogram, [facility]. Tissue Density: Left: The breast tissue is heterogeneously dense. This may lower the sensitivity of mammography. Findings: Analyzed By CAD. Pattern appears stable. No significant interval change is evident. No suspicious groups of microcalcifications, spiculated or lobular masses, architectural distortion or other secondary signs of malignancy are mammographically apparent. Overall Assessment: Benign, BI-RAD 2 Management: Screening Mammogram of the left breast in 1 year. A negative mammogram report should not preclude additional follow up of suspicious palpable abnormalities. Patient should continue monthly self breast exam. A clinical breast exam by your physician is recommended on an annual basis and results should be correlated with mammographic findings. Electronically signed and approved by: Trever Montes D.O. Radiologis
== END | disposition home or self-care (01) ==
LOC: RADMAMWWP 13:31
PROVIDERS: ATTEND Family Medicine
DX: Z12.31 Encounter for screening mammogram for malignant neoplasm of breast (principal); Z78.0 Asymptomatic menopausal state; Z80.3 Family history of malignant neoplasm of breast; Z98.890 Other specified postprocedural states; Z90.11 Acquired absence of right breast and nipple
CPT/HCPCS: 77067

== ENCOUNTER → 2023-01-12 | Outpatient (CLI) | payer MEDICARE, BC ==
--- NOTE | 2023-01-12 10:23 | CT ---
EXAMINATION TYPE: CT chest wo con CT DLP: 368.4 mGycm, Automated exposure control for dose reduction was used. DATE OF EXAM: 01/12/2023 10:17 AM COMPARISON: CTA chest 01/03/2021, 12/13/2019 CLINICAL INDICATION:Female, 67 years old with history of I71.20 THORACIC AORTIC ANEURYSM; PHH, Thorac ic aortic aneurysm. TECHNIQUE: Multiple axial images were obtained through the chest without IV contrast. Lack of IV or o ral contrast limits evaluation of solid and hollow organ viscera. . Coronal and sagittal reformats re viewed. FINDINGS: LUNGS/ PLEURA: No pleural effusion, pneumothorax, or focal consolidation. Scar redemonstrated within the lingula. Mild centrilobular emphysematous changes. Stable left lower lobe superior segment 3 mm pulmonary nodule (series 4, image 24). Considered benign. No new or enlarging pulmonary nodules. AIRWAY: Patent and unremarkable.. HEART: Size within normal limits. No pericardial effusion. Left atrial appendage occlusion device. MEDIASTINUM: No gross evidence of adenopathy. VASCULATURE: Postsurgical changes from ascending aortic repair with decreased size of previously see n ascending thoracic aortic aneurysm now measuring 4.0 cm, previously measured 5.4 cm. Aneurysmal dil atation of the descending thoracic aorta measuring 3.1 cm, previously measured 2.9 cm. Atheroscleroti c calcification of the aorta and its branches. MUSCULOSKELETAL: Mild disc degeneration changes are present throughout the thoracolumbar spine. No ac [place] osseous abnormality. Benign vertebral hemangioma within the T8 vertebral body. Median sternotomy wires. SOFT TISSUES/LYMPH NODES: Unremarkable. LOWER NECK: No significant findings. UPPER ABDOMEN: No significant findings. IMPRESSION: 1. Postsurgical changes of the ascending thoracic aortic aneurysm repair with the ascending thoracic aorta measuring 4.0 cm, previously 5.4 cm. 2. Marginal increase in aneurysm dilatation of descending thoracic aorta measuring 3.1 cm, previously 2.9 cm.
== END | disposition home or self-care (01) ==
LOC: RADCTMAIN 09:50
PROVIDERS: ATTEND Internal Medicine Interventional Cardiology
DX: I71.21 Aneurysm of the ascending aorta, without rupture (principal); Z86.79 Personal history of other diseases of the circulatory system
CPT/HCPCS: 71250

== ENCOUNTER 2023-06-27 17:00 | Emergency (ER) | payer MEDICARE, BC ==
--- NOTE | 2023-06-27 17:04 | ED ---
Lower Extremity Injury HPI - General Source: patient, RN notes reviewed <Dory Funes - Last Filed: 06/27/23 20:03> - General Source: patient - History of Present Illness MD Complaint: ankle injury -: hour(s) Injury: Ankle: Left Type of Injury: unknown Place: home Severity: moderate Improves With: immobilization Worsens With: movement Context: fall Associated Symptoms: snap/pop sensation, swelling, unable to bear weight Treatments Prior to Arrival: cold therapy <Mahesh Chapman - Last Filed: 07/06/23 09:20> - General Stated Complaint: Left foot injurey Time Seen by Provider: 06/27/23 17:03 - History of Present Illness Initial Comments: Patient is a 67-year-old female presented ER with chief complaint of left ankle injury. Patient states she slipped on ice while getting a package on her porch. Patient denies any other injuries. (Dory Funes) - Related Data Home Medications Medication Instructions Recorded Confirmed Rosuvastatin Calcium [Crestor] 2.5 mg PO HS 04/15/18 07/01/23 Ascorbic Acid [Vitamin C] 1,000 mg PO DAILY 02/20/21 07/01/23 Zinc 25 mg PO Q2D 02/20/21 07/01/23 Albuterol Inhaler [Ventolin Hfa 2 puff INHALATION BID PRN 03/11/21 07/01/23 Inhaler] Cholecalciferol [Vitamin D3 (25 25 mcg PO DAILY 03/11/21 07/01/23 Mcg = 1000 Iu)] Fish Oil/Dha/Epa [Fish Oil 1,200 1 each PO DAILY 03/11/21 07/01/23 mg Fish Oil] Glucos Sul 2Kcl/MSM/Chond/C/Mn 1 each PO DAILY 03/11/21 07/01/23 [Glucosamine Chondroitin Cap] [place]-3 Fatty Acids [[place]-3] 600 mg PO DAILY 03/11/21 07/01/23 Metoprolol Tartrate [Lopressor] 50 mg PO DAILY 06/30/23 07/01/23 Acetaminophen [Tylenol] 325 mg PO 07/01/23 Previous Rx's Medication Instructions Recorded Acetaminophen Tab [Tylenol] 650 mg PO Q6HR PRN tab 03/22/21 Ferrous Sulfate [Iron (65 MG 325 mg PO BID-W/MEALS #60 tab 03/22/21 Elemental)] Aspirin [Adult Low Dose Aspirin EC] 81 mg PO BID #60 tab 07/02/23 Allergies Allergy/AdvReac Type Severity Reaction Status Date / Time codeine AdvReac nausea, Verified 07/01/23 13:31 felt "out of it" Review of Systems ROS Other: All systems not noted in ROS Statement are negative. <Dory Funes - Last Filed: 06/27/23 20:03> ROS Other: All systems not noted in ROS Statement are negative. Constitutional: Denies: fever, chills, weakness Respiratory: Denies: cough, dyspnea Cardiovascular: Denies: chest pain, palpitations, syncope Gastrointestinal: Denies: abdominal pain, vomiting, diarrhea Genitourinary: Denies: urgency, dysuria Musculoskeletal: Reports: as per HPI, joint swelling, arthralgia Skin: Denies: rash, lesions Neurological: Denies: headache, weakness, numbness, paresthesias Hematological/Lymphatic: Denies: easy bleeding <Mahesh Chapman - Last Filed: 07/06/23 09:20> ROS Statement: Those systems with pertinent positive or pertinent negative responses have been documented in the HPI. Past Medical History Past Medical History: Cancer, Hyperlipidemia, Osteoarthritis (OA) Additional Past Medical History / Comment(s): aortic aneurysm since 2018, getting larger, recent CT scan, emphysema, hx. breast cancer 20 yrs. ago, paroxysmal vertigo History of Any Multi-Drug Resistant Organisms: None Reported Past Surgical History: Breast Surgery Additional Past Surgical History / Comment(s): right radical mastectomy, right oophorectomy, cyst removed from left ovary, D & C Past Anesthesia/Blood Transfusion Reactions: No Reported Reaction Additional Past Alcohol Use History / Comment(s): quit smoking 2007, smoked for 30 yrs. 1ppd - Past Family History Father Family Medical History: Coronary Artery Disease (CAD) <Dory Funes - Last Filed: 06/27/23 20:03> General Exam <Dory Funes - Last Filed: 06/27/23 20:03> Limitations: no limitations General appearance: alert, in no apparent distress, anxious Head exam: Present: atraumatic, normocephalic Eye exam: Present: normal appearance. Absent: scleral icterus, conjunctival injection ENT exam: Present: normal oropharynx Neck exam: Present: normal inspection, full ROM. Absent: tenderness Respiratory exam: Present: normal lung sounds bilaterally. Absent: respiratory distress, wheezes, rales, rhonchi, stridor, chest wall tenderness, accessory muscle use Cardiovascular Exam: Present: regular rate, normal rhythm, normal heart sounds. Absent: systolic murmur, diastolic murmur, rubs, gallop GI/Abdominal exam: Present: soft. Absent: distended, tenderness, guarding, rebound, rigid, mass Extremities exam: Present: normal capillary refill. Absent: pedal edema, calf tenderness Left Upper Leg exam: Present: normal inspection, full ROM. Absent: tenderness, swelling Knee exam: Present: normal inspection, full ROM. Absent: tenderness, swelling Lower Leg exam: Present: normal inspection, full ROM. Absent: tenderness, swelling Ankle exam: Present: tenderness, swelling, deformity, dislocation. Absent: full ROM, abrasion, laceration, ecchymosis Neurovascular tendon exam: Present: no vascular compromise. Absent: motor deficit, sensory deficit, tendon deficit Back exam: Present: normal inspection. Absent: CVA tenderness (R), CVA tenderness (L), vertebral tenderness Neurological exam: Present: alert, oriented X3. Absent: motor sensory deficit Skin exam: Present: warm, dry, intact, normal color. Absent: rash <Mahesh Chapman - Last Filed: 07/06/23 09:20> - General Exam Comments Initial Comments: Visual Physical Exam Vital signs reviewed General: Well-appearing, nontoxic, no acute distress. Head: Normocephalic, atraumatic Eyes: PERRLA, EOMI ENT: Airway patent Chest: Nonlabored breathing Skin: No visual rash, normal skin tone Neuro: Alert and oriented 3 Musculoskeletal: No gross abnormalities (Dory Funes) Course <Dory Funes - Last Filed: 06/27/23 20:03> Vital Signs 06/27/23 17:10 Temperature 98.8 F Pulse Rate 91 Respiratory 18 Rate Blood Pressure 158/88 O2 Sat by Pulse 97 Oximetry - Reevaluation(s) Reevaluation #1: 06/27/23 18:24 I spoke with opal sweeney from orthopedics who advised reduction and splinting. (Dory Funes) Medical Decision Making <Dory Funes - Last Filed: 06/27/23 20:03> <Mahesh Chapman - Last Filed: 07/06/23 09:20> - Medical Decision Making I performed the quick note portion of the exam. Electronically signed by Dory Funes PA-C (Dory Funes) The patient had left ankle x-ray that does reveal a bimalleolar fracture with lateral dislocation of the foot. Patient is 67-year-old woman who slipped on ice and fell fracturing her left ankle. It was initially felt that the fracture can be managed as outpatient and I did attempt closed reduction and splinting. Following this there was not a great anatomic alignment, discussed with the physician medical practice assistant covering orthopedics and they would like to admit the patient for probable surgical repair in the morning. I discussed this with the patient who states that she adamantly does not want to stay and that she will following the clinic and requests another attempt at better anatomic reduction. I did perform a second bedside reduction and splinting with a little better anatomic alignment. I did recommend that the patient however stay in the hospital for admission to have evaluation by orthopedics in the morning. There is concern about possible skin breakdown. The patient does have good neurovascular function distal to injury. She again states that she will not stay and she wants to sign out AGAINST MEDICAL ADVICE. She understands this risk involved area at this point the patient 's sporting her decision. She agrees to return should any new symptoms develop Was pt. sent in by a medical professional or institution (ZIYAD Ferguson, MEDICAL BILLING AND CODING SPECIALIST, urgent care, hospital, or [facility]...) When possible be specific @ -[No] Did you speak to anyone other than the patient for history (EMS, parent, family, police, friend...)? What history was obtained from this source @ -[No] Did you review nursing and triage notes (agree or disagree)? Why? @ -[I reviewed and agree with nursing and triage notes] Were old charts reviewed (outside hosp., previous admission, EMS record, old EKG, old radiological studies, urgent care reports/EKG's, [facility] records)? Report findings @ -[No old charts were reviewed] Differential Diagnosis (chest pain, altered mental status, abdominal pain women, abdominal pain men, vaginal bleeding, weakness, fever, dyspnea, syncope, headache, dizziness, GI bleed, back pain, seizure, CVA, palpatations, mental health, musculoskeletal)? @ -[Differential Musculoskeletal Muscular strain, contusion, ligament sprain, fracture, arthritis, septic arthritis, bursitis, cellulitis, muscle spasm, nerve compression, DVT, arterial occlusion, herpes zoster, electrolyte abnormality, tumor.... This is not meant to be in all inclusive list EKG interpreted by me (3pts min.). @ -[As above] X-rays interpreted by me (1pt min.). @ -[I interpreted the ankle x-rays 3 times, as above CT interpreted by me (1pt min.). @ -[None done] U/S interpreted by me (1pt. min.). @ -[None done] What testing was considered but not performed or refused? (CT, X-rays, U/S, labs)? Why? @ -[None] What meds were considered but not given or refused? Why? @ -[None] Did you discuss the management of the patient with other professionals (professionals i.e. , PA, MEDICAL BILLING AND CODING SPECIALIST, lab, RT, psych nurse, social work supervisor, informatica mdm architect, teacher, financial services officer, rifle case repairer)? Give summary @ -[Case discussed with the orthopedic physician medical practice assistant on-call twice by myself and once by the physician medical practice assistant who performed the initial examination. See above Was smoking cessation discussed for >3mins.? @ -[No] Was critical care preformed (if so, how long)? @ -[No] Were there social determinants of health that impacted care today? How? (Homelessness, low income, unemployed, alcoholism, drug addiction, transportation, low edu. Level, literacy, decrease access to med. care, [facility], rehab)? @ -[No] Was there de-escalation of care discussed even if they declined (Discuss DNR or withdrawal of care, Hospice)? DNR status @ -[No] What co-morbidities impacted this encounter? (DM, HTN, Smoking, COPD, CAD, Cancer, CVA, ARF, Chemo, Hep., AIDS, mental health diagnosis, sleep apnea, morbid obesity)? @ -[None] Was patient admitted / discharged? Hospital course, mention meds given and route, prescriptions, significant lab abnormalities, going to OR and other pertinent info. @ -[The patient signed to leave AGAINST MEDICAL ADVICE after discussion of the risks, benefits, indications of staying in the hospital versus going home. Undiagnosed new problem with uncertain prognosis? @ -[No] Drug Therapy requiring intensive monitoring for toxicity (Heparin, Nitro, Insulin, Cardizem)? @ -[No] Were any procedures done? @ -[No] Diagnosis/symptom? @ -[Acute closed left ankle fracture Acute, or Chronic, or Acute on Chronic? @ -[Acute Uncomplicated (without systemic symptoms) or Complicated (systemic symptoms)? @ -[Uncomplicated Side effects of treatment? @ -[No] Exacerbation, Progression, or Severe Exacerbation? @ -[No] Poses a threat to life or bodily function? How? (Chest pain, [place], NH, pneumonia, PE, COPD, DKA, ARF, appy, cholecystitis, CVA, Diverticulitis, Homicidal, Suicidal, threat to staff... and all critical care pts) @ -[Yes there is significant risk to the patient's extremity function leaving AGAINST MEDICAL ADVICE and this was thoroughly discussed with patient and her (Mahesh Chapman) Disposition <Dory Funes - Last Filed: 06/27/23 20:03> Is patient prescribed a controlled substance at d/c from ED?: Yes When asked, does pt state using other controlled substances?: No If prescribed controlled substance>3 days was MAPS reviewed?: Prescribed <3 Days If opioid is for acute pain is fill amount 7 days or less?: No If Rx opioid, was Start Talking consent form obtained?: No <Mahesh Chapman - Last Filed: 07/06/23 09:20> Clinical Impression: Fracture of ankle Disposition: LEFT AGAINST MEDICAL ADVICE Condition: Good Instructions (If sedation given, give patient instructions): Ankle Fracture (ED) Referrals: Alessandro Costello MD [Primary Care Provider] - 1-2 days Paulo Shen DO [Doctor of Osteopathic Medicine] - 1-2 days
[2023-06-27 17:28] VITALS: BP 158/88; PULSE 91; RESP 18; TEMP 98.8
[2023-06-27] MEDS ORDERED: KETOROLAC 15 MG/ML 1 ML VIAL IM STA (17:31)
--- NOTE | 2023-06-27 18:32 | XR ---
EXAMINATION TYPE: XR ankle complete LT DATE OF EXAM: 06/27/2023 COMPARISON: None HISTORY: Injury, pain TECHNIQUE: 3 view left ankle FINDINGS: There is a transverse fracture of the medial malleolus. There is an oblique fracture of the distal metaphysis fibula. There is subluxation of the talus laterally approximately 50% of the tibia . Evaluation, no posterior tibial fracture is clearly identified. There may be some joint space fluid lateral projection. Diffuse soft tissue swelling is present anteriorly and posteriorly. Note is made of a small plantar calcaneal heel spur. No additional fractures are evident. IMPRESSION: 1. There appears to be a bimalleolar fracture with subluxation of the talus laterally.
[2023-06-27] MEDS ORDERED: MORPHINE SULFATE 4 MG/ML SYRINGE IM STA (21:33)
--- NOTE | 2023-06-27 22:38 | XR ---
EXAM: XR Left Ankle Complete, 3 or More Views CLINICAL HISTORY: ITS.REASON XR Reason: post reduction TECHNIQUE: Frontal, lateral and oblique views of the left ankle. COMPARISON: Earlier same day. FINDINGS: Bones/joints: Displaced trimalleolar fracture, with asymmetry of the ankle mortise. Surgical evaluation recommended. No dislocation. Soft tissues: Unremarkable. IMPRESSION: Displaced trimalleolar fracture, with asymmetry of the ankle mortise. Mildly improved alignment. Surgical evaluation recommended.
--- NOTE | 2023-06-27 23:52 | XR ---
EXAM: XR Left Ankle Complete, 3 or More Views CLINICAL HISTORY: ITS.REASON XR Reason: post reduction TECHNIQUE: Frontal, lateral and oblique views of the left ankle. COMPARISON: Earlier same day. FINDINGS: Bones/joints: Improved reduction of the trimalleolar fracture. The medial ankle mortise remains widened by approximately 5 mm (previously 10 mm). No dislocation. Soft tissues: Unremarkable. IMPRESSION: Improved reduction of the trimalleolar fracture. The medial ankle mortise remains widened by approximately 5 mm (previously 10 mm).
== END 2023-06-28 00:02 | disposition left against medical advice (07) ==
LOC: EC 17:00
DX: S82.892A Other fracture of left lower leg, initial encounter for closed fracture (principal); E78.5 Hyperlipidemia, unspecified; M19.90 Unspecified osteoarthritis, unspecified site; Z79.899 Other long term (current) drug therapy; Z88.5 Allergy status to narcotic agent; Z87.891 Personal history of nicotine dependence; Z53.29 Procedure and treatment not carried out because of patient's decision for other reasons; W00.0XXA Fall on same level due to ice and snow, initial encounter
CPT/HCPCS: 29515; 99283; 96372; 73610; J2270

== ENCOUNTER 2023-07-01 12:36 | Day surgery (SDC) | payer MEDICARE, BC ==
[2023-06-30 10:26] VITALS: BMI 24.7
--- NOTE | 2023-06-30 21:41 | HP ---
HISTORY AND PHYSICAL DATE OF SURGERY: 07/01/2023. HISTORY OF PRESENT ILLNESS: Nuris Bradford is a 67-year-old patient seen with a displaced left ankle trimalleolar fracture. Recommend open reduction and internal fixation. The patient was agreeable. Consent was obtained. PAST MEDICAL HISTORY: Hypertension. PAST SURGICAL HISTORY: Mastectomy, cardiac surgery. DAILY MEDICATIONS: 1. Aspirin. 2. Glucosamine. 3. Metoprolol. 4. Rosuvastatin. ALLERGIES: None. SOCIAL HISTORY: She denies tobacco use. PHYSICAL EVALUATION OF THE LEFT ANKLE: She has a well-padded splint in place. She is able to move her toes without significant pain. She has good perfusion sensation distally. IMAGING STUDIES: Radiographs of her left ankle revealed a displaced trimalleolar fracture. IMPRESSION: 1. Left ankle displaced trimalleolar fracture. 2. Hypertension. 3. Hyperlipidemia. PLAN: Open reduction and internal fixation, left ankle trimalleolar fracture. MMODL / IJN: [id number] /
[~2023-07-01 12:36] MED LIST changes: -ASPIRIN 325 MG TAB PO ONE; +DEXAMETHASONE SOD PHOSPHATE 4 MG/ML 1 ML VIAL IV ONE; +LACTATED RINGERS 1,000 ML IV SCH; +LIDOCAINE 1% (10MG/ML) FOR IV START INTRADERMA PRN; +ONDANSETRON 4 MG/2 ML VIAL IVP ONE; +droPERidol 5 MG/2 ML VIAL IVP ONE; +fentaNYL (PF) 50 MCG/ML 2 ML AMP IV PRN
[2023-07-01 14:09] LABS: Basophils % (A) 0 %; Eosinophils # (A) 0.1 k/uL (0-0.7); Eosinophils % (A) 1 %; HCT 44.7 % (34.0-46.0); HGB 14.7 gm/dL (11.4-16.0); Lymphocytes # (A) 1.7 k/uL (1.0-4.8); Lymphocytes % (A) 18 %; MCH 29.5 pg (25.0-35.0); MCHC 32.8 g/dL (31.0-37.0); MCV 90.1 fL (80.0-100.0); Mean Platelet Volume 8.5; Monocytes # (A) 0.3 k/uL (0-1.0); Monocytes % (A) 4 %; Neutrophils # (A) 7.2 k/uL (1.3-7.7); Neutrophils % (A) 76 %; Platelet Count 211 k/uL (150-450); RBC 4.97 m/uL (3.80-5.40); RDW 13.4 % (11.5-15.5); WBC 9.5 k/uL (3.8-10.6)
[2023-07-01 14:26] LABS: ALT 25 U/L (4-34); AST 45 U/L (14-36); African American GFR (CKD) >90 (>60 ml/min/1.73 sqM); Albumin 4.7 g/dL (3.5-5.0); Alkaline Phosphatase 76 U/L (38-126); Anion Gap 11 mmol/L; Blood Urea Nitrogen 12 mg/dL (7-17); Calcium 9.4 mg/dL (8.4-10.2); Carbon Dioxide 21 mmol/L (22-30); Chloride 108 mmol/L (98-107); Glucose 105 mg/dL (74-99); Non-African American GFR(CKD) >90 (>60 ml/min/1.73 sqM); Sodium 140 mmol/L (137-145); Total Bilirubin 1.5 mg/dL (0.2-1.3); Total Protein 7.8 g/dL (6.3-8.2)
[2023-07-01] MEDS ORDERED: MIDAZOLAM 2 MG/2 ML VIAL IVP ONE (14:58)
[2023-07-01] MEDS ORDERED: fentaNYL (PF) 50 MCG/ML 2 ML AMP IVP ONE (14:58)
--- NOTE | 2023-07-01 16:26 | P.ANPRN ---
Procedure Note - Anesthesia - Nerve Block Performed Left Popliteal Single Time Out Performed: Yes Date of Procedure: 07/01/23 Procedure Start Time: 14:57 Procedure Stop Time: 15:05 Location of Patient: PreOp Indication: Acute Post-Operative Pain, Requested by Surgeon Sedation Type: Sedate with meaningful contact maintained Preparation: Sterile Prep Position: Right Lateral Needle Types: Pajunk Needle Gauge: 21 Ultrasound used to visualize needle placement: Yes Ultrasound used to observe medication spread: Yes Injectate: 0.5% Ropivacaine (see comment for volume) (20 ml + 4 mg Dexamethasone + 10 ml NS) Blood Aspirated: No Pain Paresthesia on Injection Noted: No Resistance on Injection: Normal Image Stored and Saved: Yes Events: Uneventful and Well Tolerated
--- NOTE | 2023-07-01 16:28 | P.ANPRN ---
Procedure Note - Anesthesia - Nerve Block Performed Left Adductor Canal Single Time Out Performed: Yes Date of Procedure: 07/01/23 Procedure Start Time: 15:07 Procedure Stop Time: 15:13 Location of Patient: PreOp Indication: Acute Post-Operative Pain, Requested by Surgeon Sedation Type: Sedate with meaningful contact maintained Preparation: Sterile Prep Position: Supine Needle Types: Pajunk Needle Gauge: 21 Ultrasound used to visualize needle placement: Yes Ultrasound used to observe medication spread: Yes Injectate: 0.5% Ropivacaine (see comment for volume) (20 ml + 4 mg Dexamethasone + 10 ml NS) Blood Aspirated: No Pain Paresthesia on Injection Noted: No Resistance on Injection: Normal Image Stored and Saved: Yes Events: Uneventful and Well Tolerated
[2023-07-01] MEDS ORDERED: ceFAZolin 1,000 MG in SODIUM CHLORIDE 0.9% 1,000 ML IRRIGATION ONE (16:30)
[2023-07-01] MEDS ORDERED: NEOMYCIN-BACITRACIN-POLY OINT 14 GM TUBE TOPICAL ONE (16:32)
[2023-07-01] MEDS ORDERED: LACTATED RINGERS 1,000 ML IV ONE (16:43)
[2023-07-01] MEDS ORDERED: HYDROcodone/APAP 5-325MG 1 EACH TAB PO PRN ×2 (17:17)
[2023-07-01] MEDS ORDERED: ONDANSETRON 4 MG/2 ML VIAL IVP PRN (17:17)
[2023-07-01] MEDS ORDERED: HYDROmorphone 0.5 MG/0.5 ML SYRINGE IVP PRN ×3 (17:17)
--- NOTE | 2023-07-01 17:17 | P.OP ---
Date of Procedure: 07/01/23 Preoperative Diagnosis: Displaced left ankle trimalleolar fracture Postoperative Diagnosis: Displaced left ankle trimalleolar fracture Procedure(s) Performed: Open reduction and internal fixation left ankle trimalleolar fracture Implants: 1Synthes 6 hole one third semitubular plate with appropriate length cortical and cancellus screws 2Synthes 4.0 cannulated screws Anesthesia: GETA, regional (Adductor canal block) Surgeon: Paulo Shen Supervisor [address]: Ze Anderson Estimated Blood Loss (ml): 15 Pathology: none sent Condition: stable Disposition: PACU Indications for Procedure: 67-year-old patient seen with a displaced left ankle trimalleolar fracture. I recommended open reduction and internal fixation. Patient was agreeable. Consent was obtained. Operative Findings: see description of procedure Description of Procedure: Patient was taken to the operative suite. She underwent a general anesthetic by the department of anesthesia. She received preoperative IV antibiotics. A well-padded tourniquet was placed proximal left thigh. Her splint was removed. The ankle was prepped and draped in the normal sterile orthopedic fashion. We elevated the extremity and strata tourniquet to 300. I now made an incision over the lateral aspect of lateral malleolus sharply through skin. I dissected down to the fracture site. There was a comminuted fracture. I was able to reduce the fracture with reduction forceps. I chose a 6-hole one third semitubular plate. I provided contoured and secured it to the lateral malleolus. Appropriate drill holes were made through the plate and appropriate length cortical and cancellus screws were introduced with good fixation noted. The C-arm was brought in the operative field confirming good reduction of the fr acture and good position of her toe fixation. I now turned my attention to the medial malleolus. I made an incision along the area of the medial malleolus sharply through skin. I dissect down the fracture. There was invaginated soft tissue the fracture site which I was able to remove removing the reduce the fracture without difficulty. I now placed 2 K wires through the tip of the medial mortise into the tibia. I now introduced 2 Synthes cannulated screws which gave us excellent fixation. The K wires were removed. We had good fixation of that medial malleolar fragment. The C-arm was brought back into the operative field. I now. An AP lateral and oblique images noting good reduction of the fractures. The posterior molar fracture. We'll reduce this point as well. Spot films were obtained to document this. The C-arm was pulled back. Wound was irrigated copiously. The subcu soft tissues were repaired with 2-0 Vicryl. The skin is proximal nylon suture. I did apply some antibiotic ointment and nonadherent dressings that she did have a couple of areas of blistering. Sterile dressings were applied. The tourniquet was now released noting immediate capillary for the foot and toes. We placed the patient into a well-padded modified bulky Perez splint with ankle in neutral position. The patient was awakened, transferred to a bed and recovery stable condition. Elmer LACKEY assisted in all aspects of this procedure.
--- NOTE | 2023-07-01 19:23 | XR ---
EXAMINATION TYPE: XR ankle limited LT DATE OF EXAM: 07/01/2023 5:18 PM CLINICAL INDICATION:Female, 67 years old with history of TRIMALLEOLAR. COMPARISON: None TECHNIQUE: Fluoroscopic images obtained in the OR. Intraoperative/procedural fluoroscopic services we re provided. Total fluoroscopy time is 22.5 seconds with a total of 4 submitted images to PACS. Gee darnell see the operative/procedural note for further details. DAP: 0.1908 mGym2 IMPRESSION: Intraoperative fluoroscopic images for fracture repair. Please see operative/procedural note for furt her details.
--- NOTE | 2023-07-01 23:33 | FL ---
EXAMINATION TYPE: FL guidance operating room Intraoperative/procedural fluoroscopic services were pro vided. Total fluoroscopy time is 22 seconds with a total of 3 submitted images to PACS. Please see th e operative/procedural note for further details. DAP: 0.1908 Gycm2
[2023-07-02] MEDS: LACTATED RINGERS 1,000 ML IV SCH ×3 (00:13→14:03)
[2023-07-02] MEDS ORDERED: ACETAMINOPHEN TAB 325 MG TAB PO PRN (07:45)
[2023-07-02] MEDS ORDERED: ALBUTEROL NEBULIZED 2.5 MG/3 ML INHALATION PRN (07:45)
[2023-07-02] MEDS ORDERED: ENOXAPARIN 40 MG/0.4 ML SYRINGE SQ SCH (09:00)
[2023-07-02] MEDS ORDERED: METOPROLOL TARTRATE 50 MG TAB PO SCH (09:00)
[2023-07-02] MEDS ORDERED: CHOLECALCIFEROL 25 MCG (1000 IU) TABLET PO SCH (09:00)
[2023-07-02] MEDS ORDERED: ASCORBIC ACID 500 MG TAB PO SCH (09:00)
[2023-07-02] MEDS ORDERED: NON FORMULARY DRUG (Fish Oil/Dha/Epa [Fish Oil 1,200 Mg Fish Oil] 1 EACH Capsule) PO SCH (09:00)
[2023-07-02 09:41] VITALS: BP 125/65; PULSE 62; RESP 18; TEMP 97.9
--- NOTE | 2023-07-02 12:27 | P.PN ---
Subjective Progress Note Date: 07/02/23 Principal diagnosis: Status post ORIF left trimalleolar ankle fracture Patient evaluated at bedside, she is resting comfortably with her foot elevated. She does note some occasional discomfort but overall controlled. Patient is here to work with physical therapy today. She is hoping to be discharged home with home healthcare possibly. Denies headaches, lightheadedness, chest pain or shortness of breath Objective - Vital Signs Vital signs: Vital Signs Temp 97.9 F 07/02/23 07:35 Pulse 62 07/02/23 07:35 Resp 18 07/02/23 07:35 BP 125/65 07/02/23 07:35 Pulse Ox 97 07/02/23 07:35 FiO2 Intake & Output 07/01/23 07/02/23 07/02/23 18:59 06:59 18:59 Intake Total 2050 Output Total 15 Balance 2035 Weight 77.9 kg 77.9 kg Intake: IV 2050 Output: Estimated Blood Loss 15 Other: # Voids 3 - Exam Left lower extremity: Postop splint is in good position and condition. Sensory exam to light touch both proximal distal to the splint are intact. She is wiggling toes with no difficulty - Labs CBC & Chem 7: 07/01/23 13:54 07/01/23 13:54 Labs: Abnormal Lab Results - Last 24 Hours (Table) 07/01/23 Range/Units 13:54 Chloride 108 H (98-107) mmol/L Carbon Dioxide 21 L (22-30) mmol/L Glucose 105 H (74-99) mg/dL Total Bilirubin 1.5 H (0.2-1.3) mg/dL AST 45 H (14-36) U/L Assessment and Plan Assessment: Postoperative day #1 status post ORIF left trimalleolar ankle fracture Plan: Pain control, patient would like to utilize Tylenol at home, she would like to avoid narcotics DVT prophylaxis, aspirin 81 mg twice a day Wound care instructions were discussed, this including icing and elevating along with cast instructions to keep dry and covered while showering Prescription was provided for both a walker and knee scooter to help with ambulation Weightbearing left lower extremity Discharge planning: Patient stable for discharge to home today Time with Patient: Less than 30
--- NOTE | 2023-07-02 12:31 | P.DS ---
Providers Date of admission: 07/01/2023 Expected date of discharge: 07/02/23 Attending physician: Paulo Shen Consults: 07/02/23 10:55 Consult Physician Routine Consulting Provider: Stephie Estrada Consult Reason/Comments: medical management Do you want consulting provider notified?: Yes Primary care physician: Alessandro Byrnes [facility] Course: Date of admission: 07/01/2023 Date of discharge: 07/02/2023 Admission diagnosis: Status post ORIF left trimalleolar ankle fracture Discharge diagnosis: Same Attending physician: Dr. Shen Surgical procedures: ORIF left trimalleolar ankle fracture Brief history: Patient is a 67-year-old female with a history of slip and fall injury resulting in a left trimalleolar ankle fracture. At this point patient has failed conservative treatment measures and has opted to proceed with a elective ORIF left trimalleolar ankle fracture. Hospital course: Details of patient's surgery can be found in operative report. Patient tolerated the procedure well and was subsequently transported to orthopedic floor. Patient's orthopeidc and medical care was provided daily. Patient had daily laboratory tests performed for evaluation of overall blood counts. Patient had daily physical therapy to include strengthening range of motion as well as education with walker ambulation. Patient was treated with Lovenox for their postoperative DVT prophylaxis during their inpatient stay. Patient was noted to have a relatively uneventful postoperative course. Patient reported satisfactory pain control with oral pain medications by postoperative day 1. Patient showed satisfactory progress with physical therapy. Patient moved steadily through the program and had no difficulty meeting the goals by postoperative day 1. Given patient's otherwise satisfactory course and having met physical therapy goals, plan is to discharge patient [home] on postoperative day 1. Discharge condition/disposition: Patient will be discharged [home] in stable condition. Discharge medications: Instructions are given on resumption of patient's normal daily medications per primary care recommendation, in addition patient will be prescribed aspirin 81 mg. Discharge instructions: 1. Nonweightbearing left lower extremity 2. Ice and elevation often 3. Keep splint covered and dry, do not remove 4. Aspirin 81 mg twice a day for DVT prophylaxis 5. Plan for follow-up in office in 2 weeks Procedures: Open reduction internal fixation left trimalleolar ankle fracture Patient Condition at Discharge: Good Plan - Discharge Summary Discharge Rx Participant: Yes New Discharge Prescriptions: New Aspirin [Adult Low Dose Aspirin EC] 81 mg PO BID #60 tab No Action Rosuvastatin Calcium [Crestor] 2.5 mg PO HS Zinc 25 mg PO Q2D Ascorbic Acid [Vitamin C] 1,000 mg PO DAILY Cholecalciferol [Vitamin D3 (25 Mcg = 1000 Iu)] 25 mcg PO DAILY Albuterol Inhaler [Ventolin Hfa Inhaler] 2 puff INHALATION BID PRN PRN Reason: Wheezing Wishek-3 Fatty Acids [Wishek-3] 600 mg PO DAILY Glucos Sul 2Kcl/MSM/Chond/C/Mn [Glucosamine Chondroitin Cap] 1 each PO DAILY Fish Oil/Dha/Epa [Fish Oil 1,200 mg Fish Oil] 1 each PO DAILY Ferrous Sulfate [Iron (65 MG Elemental)] 325 mg PO BID-W/MEALS #60 tab Acetaminophen [Tylenol] 325 mg PO Aspirin 81 mg PO DAILY #30 tab Acetaminophen Tab [Tylenol] 650 mg PO Q6HR PRN tab PRN Reason: Mild Pain or Fever > 38.3 C Metoprolol Tartrate [Lopressor] 50 mg PO DAILY Discharge Medication List Rosuvastatin Calcium [Crestor] 2.5 mg PO HS 04/15/18 [History] Ascorbic Acid [Vitamin C] 1,000 mg PO DAILY 02/20/21 [History] Zinc 25 mg PO Q2D 02/20/21 [History] Albuterol Inhaler [Ventolin Hfa Inhaler] 2 puff INHALATION BID PRN 03/11/21 [History] Cholecalciferol [Vitamin D3 (25 Mcg = 1000 Iu)] 25 mcg PO DAILY 03/11/21 [History] Fish Oil/Dha/Epa [Fish Oil 1,200 mg Fish Oil] 1 each PO DAILY 03/11/21 [History] Glucos Sul 2Kcl/MSM/Chond/C/Mn [Glucosamine Chondroitin Cap] 1 each PO DAILY 03/11/21 [History] Wishek-3 Fatty Acids [Wishek-3] 600 mg PO DAILY 03/11/21 [History] Acetaminophen Tab [Tylenol] 650 mg PO Q6HR PRN tab 03/22/21 [Rx] Aspirin 81 mg PO DAILY #30 tab 03/22/21 [Rx] Ferrous Sulfate [Iron (65 MG Elemental)] 325 mg PO BID-W/MEALS #60 tab 03/22/21 [Rx] Metoprolol Tartrate [Lopressor] 50 mg PO DAILY 06/30/23 [History] Acetaminophen [Tylenol] 325 mg PO 07/01/23 [History] Aspirin [Adult Low Dose Aspirin EC] 81 mg PO BID #60 tab 07/02/23 [Rx] Follow up Appointment(s)/Referral(s): Ze Anderson PAC [PHYSICIAN [employer]] - 2 Weeks Activity/Diet/Wound Care/Special Instructions: Orthopedic discharge instructions: 1. Nonweightbearing left lower extremity 2. Keep splint clean and intact, do not remove 3. Utilize walker or scooter to help with ambulation 4. Ice and elevate often 5. Aspirin 81 mg twice a day for DVT prophylaxis 6. Plan for follow-up in office in 2 weeks for recheck Discharge Disposition: HOME WITH HOME HEALTH SERVICES
[2023-07-02] MEDS ORDERED: FERROUS SULFATE 325 MG TAB PO SCH (17:30)
[2023-07-02] MEDS ORDERED: ATORVASTATIN 10 MG TAB PO SCH (21:00)
== END 2023-07-02 15:00 | disposition home health service (06) ==
LOC: OR 12:36 → 4SSUR 17:32 → OR 07-02 15:00
PROVIDERS: ATTEND Orthopaedic Surgery
DX: S82.852A Displaced trimalleolar fracture of left lower leg, initial encounter for closed fracture (principal); G89.18 Other acute postprocedural pain; I10 Essential (primary) hypertension; E78.5 Hyperlipidemia, unspecified; Z98.890 Other specified postprocedural states; Z79.82 Long term (current) use of aspirin; Z79.899 Other long term (current) drug therapy; X58.XXXA Exposure to other specified factors, initial encounter
CPT/HCPCS: 97161; 80053; 85025; 73600; 27822; 64445; 64447; J2250; J1100; J0690 ×3; J2405; J1650; J3010

== ENCOUNTER → 2023-11-03 | Outpatient (CLI) | payer MEDICARE, BC ==
--- NOTE | 2023-11-09 19:13 | MM ---
Reason for Exam: Screening (asymptomatic). Last mammogram was performed 1 year(s) and 5 month(s) ago. Patient History: Menarche at age 12. First Full-Term at age 20. Right ovary removed at age 22. Postmenopausal. Breast cancer, right, under age 51. Patient used Hormonal Contraceptives for 10 years. Mastectomy on the Right side. Benign Excisional Biopsy on the left side. Excisional Biopsy on the Right side. Paternal aunt had breast cancer. Prior Study Comparison: 03/07/2020 Screening Mammogram, Unknown. 12/11/2020 Bilateral Screening Mammogram, [facility]. 05/28/2022 Left MG screen karuna unilateral w/cad, [facility]. Tissue Density: Left: There are scattered areas of fibroglandular density. Findings: Mole redemonstrated along the superior aspect of the breast. There is no suspicious group of microcalcifications or new suspicious mass in either breast. Overall Assessment: Benign, BI-RAD 2 Management: Screening Mammogram of the left breast in 1 year. . Patient should continue monthly self-breast exams. A clinical breast exam by your physician is recommended on an annual basis. This exam should not preclude additional follow-up of suspicious palpable abnormalities. Electronically signed and approved by: Ana María Deshpande M.D. Radiologist
== END | disposition home or self-care (01) ==
LOC: RADMAMWWP 12:19
PROVIDERS: ATTEND Family Medicine
DX: Z12.31 Encounter for screening mammogram for malignant neoplasm of breast (principal); Z78.0 Asymptomatic menopausal state; Z80.3 Family history of malignant neoplasm of breast
CPT/HCPCS: 77067

== ENCOUNTER → 2024-08-24 | Outpatient (CLI) | payer MEDICARE, BC ==
--- NOTE | 2024-08-24 13:45 | CT ---
EXAMINATION TYPE: CT chest wo con DATE OF EXAM: 08/24/2024 COMPARISON: CT chest 01/12/2023 CLINICAL INDICATION: Female, 68 years old with history of I71.20 THORACIC AORTIC ANEURYSM, WITHOUT RU PTURE,; [facility], f/u thoracic aneurysm TECHNIQUE: CT scan of the thorax is performed without IV contrast. CT DLP: 420.[address] CTDI: mGy Automated exposure control for dose reduction was used. FINDINGS: There are moderate emphysematous changes with an upper lobe predominance. There is a stable 3-4 mm nodule in the left lower lobe. There are no new or suspicious lung masses or nodules. There is no airspace consolidation or abnormal interstitial density. There is no pleural effusion or pneumothorax. There is no cardiomegaly. There are post surgical changes of repair of an ascending thoracic aortic aneurysm. The ascending tho racic aorta is nondilated measuring approximately 3.7 to 3.8 cm. There is no mediastinal, hilar or ax illary adenopathy. There has been median sternotomy. No focal osseous lesions are seen. Limited scanning through the upper abdomen reveals no gross abnormality. IMPRESSION: 1. Ascending thoracic aorta aneurysm repair. Currently the ascending thoracic aorta is 3.7 x 2.8 cm. 2. Stable 3-4 millimeters nodule in the left lower lobe. 3. No acute cardiopulmonary disease. [facility], , 08/24/2024 1:43 PM
== END | disposition home or self-care (01) ==
LOC: RADCTMAIN 13:11
PROVIDERS: ATTEND Internal Medicine Interventional Cardiology
DX: I71.21 Aneurysm of the ascending aorta, without rupture (principal); R91.1 Solitary pulmonary nodule
CPT/HCPCS: 71250